=== PATIENT | female | born 1940 | race Caucasian/White ===

== ENCOUNTER 2023-12-01 12:30 | Outpatient (CLI) | payer MEDICARE, MEDICAID, SELFPAY ==
--- NOTE | 2023-12-01 14:15 | NEURO_ITS ---
Impression: # Complains of numbness of hands. Non-Rheumatoid arthritic hands. # Bilateral Carpal Tunnel Syndrome. # No ulnar neuropathy. # Needle/EMG exam not requested. Nerve Conduction Studies Anti Sensory Summary Table Stim Site NR Peak (ms) P-T Amp (?V) Site1 Site2 Delta-P (ms) Dist (cm) Law (m/s) Left Median Anti Sensory (2-3nd Digit) Wrist 3.8 45.7 Wrist 2-3nd Digit 3.8 14.0 37 Wrist 4.0 46.0 Wrist 2-3nd Digit 3.8 14.0 37 Right Median Anti Sensory (2-3nd Digit) POOR RESPONSE Wrist NR Wrist 2-3nd Digit 14.0 Wrist NR Wrist 2-3nd Digit 14.0 Left Radial Anti Sensory (Base 1st Digit) Wrist 1.8 26.8 Wrist Base 1st Digit 1.8 0.0 Right Radial Anti Sensory (Base 1st Digit) Wrist 2.4 18.1 Wrist Base 1st Digit 2.4 0.0 Left Ulnar Anti Sensory (5th Digit) Wrist 2.9 51.5 Wrist 5th Digit 2.9 14.0 48 Right Ulnar Anti Sensory (5th Digit) Wrist 2.6 53.5 Wrist 5th Digit 2.6 14.0 54 Motor Summary Table Stim Site NR Onset (ms) O-P Amp (mV) Site1 Site2 Delta-0 (ms) Dist (cm) Law (m/s) Left Median Motor (Abd Poll Brev) Wrist 4.0 3.5 Elbow Wrist 4.4 27.0 61 Elbow 8.4 2.8 Right Median Motor (Abd Poll Brev) Wrist 4.3 1.5 Elbow Wrist 4.1 25.0 61 Elbow 8.4 0.9 Left Ulnar Motor (Abd Dig Minimi) Wrist 2.8 3.9 A Elbow Wrist 4.5 26.0 58 A Elbow 7.3 3.5 Right Ulnar Motor (Abd Dig Minimi) Wrist 2.7 4.6 A Elbow Wrist 4.5 26.0 58 A Elbow 7.2 4.1 F Wave Studies NR F-Lat (ms) L-R F-Lat (ms) Left Median (Mrkrs) (Abd Poll Brev) 28.09 0.78 Right Median (Mrkrs) (Abd Poll Brev) 28.87 0.78 Left Ulnar (Mrkrs) (Abd Dig Min) 27.01 0.30 Right Ulnar (Mrkrs) (Abd Dig Min) 27.31 0.30 MTDD
== END 2023-12-01 12:31 | disposition home or self-care (01) ==
PROVIDERS: PCP Internal Medicine; Visit Provider Internal Medicine
DX: G56.03 Carpal tunnel syndrome, bilateral upper limbs (principal)
CPT/HCPCS: 95911

== ENCOUNTER 2024-01-30 14:33 | Inpatient (IN) | payer MEDICARE, MEDICAID, SELFPAY ==
[2024-01-30] VITALS (7 sets, daily range): BP systolic 112–135; BP diastolic 48–94; PULSE 62–81; RESP 16–25; TEMP 36.2–36.8; O2SAT 97–100
--- NOTE | ~2024-01-30 | CT_ITS ---
EXAMINATION: CT abdomen pelvis w con DATE: 01/30/2024 20:15 INDICATION: abd pain, diarrhea TECHNIQUE: Computed tomography (CT) of the abdomen and pelvis was performed with 100 mL Omnipaque-350 intravenous contrast. Automated exposure control and iterative reconstruction technique were employe d. The dose-length product was 553.45 mGy-cm. COMPARISON: None. FINDINGS: Lower thorax: Coronary artery and mitral calcification. Mild bibasilar scar/atelectasis. Liver: Normal. Biliary/Gallbladder: Gallbladder is absent. Mild intrahepatic and extra hepatic bile duct dilation. Pancreas: Atrophy Spleen: Granulomatous calcifications. Adrenals:No mass. Kidneys: No hydronephrosis or obstructing calcification. Irregular, indeterminate density 1.2 cm left midpole lesion, possibly with nodular enhancement. GI tract: Moderate distal esophageal and gastric wall edema. no small bowel dilation. Diffuse colonic wall edema and mucosal hyperemia, likely representing colitis on a infectious, inflammatory, or isch emic basis. Colonic fluid content as can be seen with diarrheal illness. Absent appendix. Mesentery/Peritoneum: No ascites, mass, or free air. Retroperitoneum: No mass. Pelvis: Normal urinary bladder. Absent uterus. Bilateral ovaries not confidently identified. Soft Tissues: Small fat-containing uncomplicated umbilical hernia. Mild lower anterior abdominal wall diastases. Bones: No acute osseous finding. Lumbar scoliosis and severe multilevel degenerative disc disease, w ith severe central canal narrowing at L3-4 secondary to degenerative changes. IMPRESSION: Moderate esophagitis/gastritis. Intra and extrahepatic bile duct dilation without obstructing stone or mass, possibly secondary to ch olecystectomy. Correlate with biliary labs. 1.2 cm indeterminate left midpole adrenal lesion with possible nodular enhancement, recommend nonemer gent but timely CT or MRI without and with contrast for further evaluation. Diffuse colitis. Reviewed, dictated and finalized at location K. IMPRESSION: Moderate esophagitis/gastritis. Intra and extrahepatic bile duct dilation without obstructing stone or mass, po ssibly secondary to cholecystectomy. Correlate with biliary labs. 1.2 cm indeterminate left midpole adrenal lesion with possible nodular enhancem ent, recommend nonemergent but timely CT or MRI without and with contrast for f urther evaluation. Diffuse colitis.
[2024-01-30 17:51] LABS: Basophils Percent Auto 0.2 % (0.2-1.2); Eosinophils Percent Auto 0.2 % (0-4.4); Hematocrit 38.7 % (37.0-47.0); Hemoglobin 12.5 g/dL (12.0-15.0); Immature Granulocyte Absolute 0.04 K/mm3 (0.00-0.031); Immature Granulocyte Percent A 0.3 % (0-0.5); Lymphocytes Absolute Auto 0.52 K/mm3 (0.9-3.2); Lymphocytes Percent Auto 4.5 % (18.3-44.2); Mean Corpuscular HGB Conc 32.3 g/dl (32-36); Mean Corpuscular Volume 92.8 fl (80-100); Mean Platelet Volume 10.3 fl (7.4-10.4); Monocytes Absolute Auto 0.5 K/mm3 (0.1-0.6); Monocytes Percent Auto 4.7 % (2.6-8.5); Neutrophils Absolute Auto 10.4 K/mm3 (1.3-6.7); Neutrophils Percent Auto 90.1 % (45.5-73.1); Platelet Count Result 315 k/mm3 (150-375); Red Blood Count 4.17 M/mm3 (4.2-5.4); Red Cell Distribution Width 12.8 % (11.5-14.5); White Blood Count 11.6 K/mm3 (4.5-10.0)
[2024-01-30 17:59] LABS: Alanine Aminotransferase 10 U/L (6-35); Albumin Level 4.2 g/dL (3.5-5.1); Alkaline Phosphatase 78 U/L (38-126); Anion Gap 8 mmol/L (4-12); Aspartate Amino Transferase 23 U/L (14-36); Bilirubin,Total 0.6 mg/dL (0.2-1.3); Blood Urea Nitrogen 16 mg/dL (7-17); Calcium 9.6 mg/dL (8.4-10.2); Carbon Dioxide 30 mmol/L (22-30); Chloride 99 mmol/L (98-107); Estimated Glomerular Filt Rate > 60; Glucose 119 mg/dL (65-110); Lipase 24 U/L (23-300); Potassium 3.4 mmol/L (3.4-5.0); Sodium 137 mmol/L (137-145)
--- NOTE | 2024-01-30 18:55 | ED.NAVMDI ---
HPI - Nausea/Vomiting/Diarrhea General Chief complaint: Nausea/Vomiting/Diarrhea <Fior Suarez PA-C - Last Filed: 01/30/24 22:28> Stated complaint: diarrhea <RON Mayorga Last Filed: 01/30/24 22:28> Time Seen by Provider: 01/30/24 17:17 <RON Mayorga Last Filed: 01/30/24 22:28> Source: patient <RON Mayorga Last Filed: 01/30/24 22:28> Mode of arrival: ambulatory <RON Mayorga Last Filed: 01/30/24 22:28> Limitations: no limitations <RON Mayorga Last Filed: 01/30/24 22:28> History of Present Illness HPI Narrative: Patient is an 84-year-old female who presents the ED with report of diarrhea. Patient reports she had a few episodes of diarrhea 3 days ago. She took a dose of Imodium and states the symptoms improved. She then woke up this morning with worsening diarrhea. Reports having multiple episodes of diarrhea today. States she feels weak, fatigued, has intermittent nausea. She did have an episode of vomiting at home prior to arrival. Reports abdominal pain/cramping associated right before she has a bowel movement. Denies fevers, dysuria, hematuria, rectal bleeding, melena. <RON Mayorga Last Filed: 01/30/24 22:28> Related Data Home medications: Home Medications Medication Instructions Recorded Confirmed Saccharomyces boulardii 250 mg 250 mg PO BID 02/25/23 01/31/24 capsule (Daily Probiotic (S. boulardii)) fexofenadine 180 mg tablet 180 mg PO DAILY 02/25/23 01/31/24 (Cyn Allergy) montelukast 10 mg tablet 10 mg PO HS 02/25/23 01/31/24 rosuvastatin 10 mg tablet 10 mg PO DAILY 02/25/23 01/31/24 acetaminophen 325 mg capsule 650 mg PO PRN PRN Pain 01/31/24 01/31/24 (Tylenol) calcium 600 mg (as carbonate)-vit 1 tablet PO DAILY 01/31/24 01/31/24 D3 20 mcg (800 unit) chewable tablet (Caltrate plus D) furosemide 20 mg tablet 20 mg PO DAILY 01/31/24 01/31/24 <Fior Suarez PA-C - Last Filed: 01/30/24 22:28> Allergies/Adverse reactions: Allergies Allergy/AdvReac Type Severity Reaction Status Date / Time mold Allergy Anaphylaxis Verified 01/31/24 00:13 clarithromycin AdvReac Intermediate Hyperactive Verified 11/24/23 09:38 <Fior Suarez PA-C - Last Filed: 01/30/24 22:28> Review of Systems Review of Systems: All systems reviewed & are unremarkable except as noted in HPI. <Fior Suarez PA-C - Last Filed: 01/30/24 22:28> All systems reviewed & are unremarkable except as noted in HPI and below <Fior Suarez PA-C - Last Filed: 01/30/24 22:28> [facility] Past Medical History Medical History: Medical History (Updated 01/31/24 @ 06:54 by Jenelle Moulton DO) Allergic rhinitis Bilateral carpal tunnel syndrome High cholesterol Lymphedema of both lower extremities Osteoarthritis of knees, bilateral <Fior Suarez PA-C - Last Filed: 01/30/24 22:28> Surgical History Surgical History: Surgical History History of cataract extraction History of cholecystectomy History of hysterectomy <Fior Suarez PA-C - Last Filed: 01/30/24 22:28> Family History Family History: Family History Mother Diabetes mellitus Heart disease Daughter No problems noted. Father Diabetes mellitus Heart disease Sibling No problems noted. <Fior Suarez PA-C - Last Filed: 01/30/24 22:28> Social History Social History: Social History (Updated 01/31/24 @ 06:57 by Jenelle Moulton DO) Social History: Code status: Full code (but she states she would not want to live if she did not have quality of life) Surrogate decision maker: Osbaldo (son) Smoking status: Never smoker Second hand tobacco smoke exposure: No Alcohol
[2024-01-30] MEDS: SODIUM CHLORIDE 0.9% IV 1,000 ML 999 ML IV CONT (19:50)
[2024-01-30 19:54] LABS: Lactic Acid Reflex 1.4 mmol/L (0.7-2.0)
[2024-01-30 20:29] LABS: Toxigenic C. Diff NEGATIVE (NEGATIVE)
[2024-01-30 21:31] LABS: Add Urine Microscopic? YES; Appearance Urine Clear (Clear); Bilirubin Urine Negative (Negative); Blood Urine Negative (Negative); Color Urine Dark Yellow (Yellow); Glucose Urine UA Negative (Negative); Ketones Urine Trace mg/dL (Negative); Leukocyte Esterase Ur Negative LEU/UL (Negative); Nitrate Urine Negative (Negative); Protein Urine Negative (Negative); Specific Grav Ur 1.021 (1.001-1.035); pH Urine 5.5 (5.0-9.0)
[2024-01-31] MEDS: ACETAMINOPHEN 325 MG TABLET 650 MG PO ×2 (00:03→09:00)
[2024-01-31] MEDS: SODIUM CHLORIDE 0.9% IV 1,000 ML 150 ML IV CONT (00:07)
--- NOTE | 2024-01-31 00:11 | ADMGEN ---
This patient, Sujatha Glez, was admitted to Medical Room 252-. Patient/family oriented to hospital policies and general routines including ID bracelet, bed and alarms, visiting hours, pain management, procedures, bathroom and other care routines, personal items, smoking policy, room service/diet, and visiting hours. Information on how to activate the Rapid Response Team has been discussed. Patient/Family are encouraged to report perceived risks to care and to ask questions if they do not understand what they are told or what they should do.
[2024-01-31 00:13] VITALS: BMI 30.4
--- NOTE | 2024-01-31 03:40 | PM.IMHP ---
H&P: HPI History of Present Illness Date/Time: 01/31/24 03:40 Chief Complaint: Diarrhea for 3 days Narrative: 84-year-old loquacious female with a past medical history of hyperlipidemia, chronic bilateral lower extremity lymphedema, and allergic rhinitis who presented to the ER via EMS due to severe diarrhea. Patient reports that she had a couple loose stools on the . She took a dose of Imodium and the diarrhea resolved. Then on the she had recurrent diarrhea with another couple of episodes of loose stools again relieved with Imodium. However on Thursday when she woke up she had crampy abdominal pain followed by multiple episodes of diarrhea. She reported at 1 point that she could not get off the bedside commode for over 2 hours due to continuous watery diarrhea. He was having episodes of incontinence of stool due to weakness. When she could not get off of the bedside commode her son called EMS for assistance. She reports that she thought that her symptoms were due to something she ate on Thursday. Her son 8th the same food that she did except for she had some green beans when they went out to dinner. She denies any fevers or chills. She has not had any recent travel or antibiotic exposure. She has been having some intermittent nausea but only had 1 episode of vomiting that occurred in transport to the ER. She generally just feels weak and fatigued. She reports some crampy abdominal pain that is ?not that bad?. The abdominal pain occurs just prior to having a bowel movement. She reports that the pain is in various areas of her abdomen and is transient. She denies any associated shortness of breath, chest pain or palpitations. She does have chronic bilateral lower extremity lymphedema but denies history of heart failure. She reports her leg swelling is chronic and unchanged. She reports [id number] arthritis but denies any increased pain from this in the acute setting. Patient is alert oriented and is extremely detail oriented in providing her medical history. She is the primary source of information for HPI with assistance of some electronic medical records. Review of Systems Review of Systems: 12 systems were reviewed with pertinent positives and negatives per HPI. Except as documented in the HPI, all other systems were reviewed and are negative. [facility] Past Medical History Medical History (Updated 01/31/24 @ 06:54 by Jenelle Moulton DO) Allergic rhinitis Bilateral carpal tunnel syndrome High cholesterol Lymphedema of both lower extremities Osteoarthritis of knees, bilateral Surgical History Surgical History History of cataract extraction History of cholecystectomy History of hysterectomy Family History Family History Mother Diabetes mellitus Heart disease Daughter No problems noted. Father Diabetes mellitus Heart disease Sibling No problems noted. Social History Social History (Updated 01/31/24 @ 06:57 by Jenelle Moulton DO) Social History: Code status: Full code (but she states she would not want to live if she did not have quality of life) Surrogate decision maker: Osbaldo (son) Smoking status: Never smoker Second hand tobacco smoke exposure: No Alcohol intake: never Substance use: never Substance use type: does not use Do You Feel Safe in your Home?: Yes Lack of Transportation: No Lack of Food: Never True Current Housing: I Have Housing Concerned About Future Housing: No Difficulty Paying Gas/Electric Bills: No Difficulty Paying for Meds: No Currently Unemployed: No Education: High School Diploma/GED Difficulty w/ Childcare or Family Care: No Living arrangements: with family Additional living arrangements comments: She lives in apartment with her only son. She has been since approx
[2024-01-31] MEDS: metroNIDAZOLE 500 MG/ISO 100ML 500 MG/100 ML BAG 100 MG IVPB ×3 (04:23→21:24)
[2024-01-31 05:41] VITALS: BP 108/50; PULSE 69; RESP 18; TEMP 36.6; O2SAT 98
[2024-01-31 08:00] LABS: Basophils Percent Auto 0.5 % (0.2-1.2); Eosinophils Absolute Auto 0.3 K/mm3 (0-0.3); Eosinophils Percent Auto 4.4 % (0-4.4); Hematocrit 31.8 % (37.0-47.0); Immature Granulocyte Absolute 0.01 K/mm3 (0.00-0.031); Immature Granulocyte Percent A 0.2 % (0-0.5); Lymphocytes Absolute Auto 0.95 K/mm3 (0.9-3.2); Lymphocytes Percent Auto 14.4 % (18.3-44.2); Mean Corpuscular HGB Conc 31.4 g/dl (32-36); Mean Corpuscular Hemoglobin 30.1 pg (26-34); Mean Corpuscular Volume 95.8 fl (80-100); Mean Platelet Volume 10.2 fl (7.4-10.4); Monocytes Absolute Auto 0.7 K/mm3 (0.1-0.6); Monocytes Percent Auto 9.9 % (2.6-8.5); Neutrophils Absolute Auto 4.7 K/mm3 (1.3-6.7); Neutrophils Percent Auto 70.6 % (45.5-73.1); Platelet Count Result 240 k/mm3 (150-375); Red Blood Count 3.32 M/mm3 (4.2-5.4); Red Cell Distribution Width 13.1 % (11.5-14.5); White Blood Count 6.6 K/mm3 (4.5-10.0)
[2024-01-31 08:27] LABS: Alanine Aminotransferase 6 U/L (6-35); Albumin Level 2.9 g/dL (3.5-5.1); Alkaline Phosphatase 53 U/L (38-126); Anion Gap 8 mmol/L (4-12); Aspartate Amino Transferase 18 U/L (14-36); Bilirubin,Total 0.8 mg/dL (0.2-1.3); Blood Urea Nitrogen 15 mg/dL (7-17); Calcium 8.1 mg/dL (8.4-10.2); Carbon Dioxide 23 mmol/L (22-30); Chloride 105 mmol/L (98-107); Estimated Glomerular Filt Rate > 60; Glucose 90 mg/dL (65-110); Potassium 2.5 mmol/L (3.4-5.0); Sodium 136 mmol/L (137-145)
[2024-01-31] MEDS: LOPERAMIDE HCL 2 MG CAPSULE 4 MG PO (08:58)
[2024-01-31] MEDS: POTASSIUM CHLORIDE 20 MEQ ER TABLET 40 MEQ PO ×2 (08:59→17:14)
[2024-01-31] MEDS: POTASSIUM CHLORIDE INJ 40 MEQ in SODIUM CHLORIDE 0.9% IV 500 ML 130 MEQ IVPB (08:59)
[2024-01-31] MEDS: SACCHAROMYCES BOULARDII 250 MG CAPSULE PO ×2 (09:00→17:15)
[2024-01-31] MEDS: ENOXAPARIN 40 MG/0.4 ML SYRINGE SUB-Q (09:00)
[2024-01-31] MEDS: CALCIUM/VITAMIN D 500 MG/5 MCG (200 I.U.) TABLET PO (09:00)
[2024-01-31] MEDS: LORATADINE 10 MG TABLET PO (09:00)
--- NOTE | 2024-01-31 10:00 | PM.IMPN ---
Progress Note: A&P Assessment and Plan (1) Colitis: Code(s): K52.9 - Noninfective gastroenteritis and colitis, unspecified Status: Acute Assessment and Plan: Presumed infectious colitis with diffuse colitis noted on CT scan. c. diff negative. stool cultures negative Receiving Rocephin and Flagyl IV. NS @ 75 ml/hr. (2) Dehydration: Code(s): E86.0 - Dehydration Status: Acute Assessment and Plan: Patient received 2 L fluid bolus in the ER. NS @ 75 ml/hr Full liquid diet. PT/OT (3) Hypokalemia: Code(s): E87.6 - Hypokalemia Status: Acute Assessment and Plan: Potassium 2.5. Patient given Potassium Chloride 40 meq IVPB x1 and Potassium Chloride 40 meq PO x1. Recheck potassium was 3.3. Give an additional Potassium Chloride 40 meq PO x1. Monitor labs. (4) Back pain: Code(s): M54.9 - Dorsalgia, unspecified Status: Acute Assessment and Plan: Acetaminophen 650 mg PO q 4 PRN. Plan Patient has been admitted as observation status. Subjective Date/time seen: 01/31/24 10:00 Interval history: Patient denies chest pain, palpitations, abdominal pain, nausea, or vomiting. Patient reports back pain that is a 6 , pain is constant, and aching. Review of Systems Review of Systems: All systems reviewed & are unremarkable except as noted in HPI and below Exam Const: General: no acute distress and uncomfortable Eyes: Sclera: sclerae normal Resp: Effort & Inspection: normal respiratory effort Auscultation: clear to auscultation bilaterally Cardio: Rate: regular rate Rhythm: regular rhythm GI: GI Palp: Yes Soft to palpation Auscultation: normal bowel sounds Other: Last BM today. Skin: General skin exam: no rashes or lesions noted Extrem: General: normal to inspection Psych: Affect: normal affect Objective Data Vital Signs Vital Signs: Vital Signs - 24 hr 01/30/24 14:41 01/30/24 17:30 01/30/24 21:15 Temperature 97.4 F L 98.2 F 97.9 F Pulse Rate 81 78 74 Respiratory Rate 20 16 23 H Blood Pressure 129/51 L 112/57 L 116/81 Pulse Oximetry 100 100 100 Oxygen Delivery Room Air 01/30/24 18:00 01/30/24 20:00 01/30/24 22:57 Temperature Pulse Rate 76 73 76 Respiratory Rate 18 20 25 H Blood Pressure 119/94 H 120/56 L 125/60 Pulse Oximetry 100 97 100 Oxygen Delivery 01/30/24 23:27 01/30/24 23:27 01/31/24 05:41 Temperature 97.1 F L 97.8 F Pulse Rate 62 69 Respiratory Rate 20 18 Blood Pressure 135/48 L 108/50 L Pulse Oximetry 100 98 Oxygen Delivery Room Air Intake/Output Intake/Output: Intake & Output 01/28/24 01/29/24 01/30/24 01/31/24 23:59 23:59 23:59 23:59 Intake Total 1000 300 Balance 1000 300 Meds/Results Medications: Active Medications Generic Name Dose Route Start Last Admin Trade Name Freq PRN Reason Stop Dose Admin Acetaminophen 650 mg 01/30/24 22:21 01/31/24 09:00 Acetaminophen 325 Mg Tablet PO 650 mg Q4H PRN Administration Mild Pain (1-3) or Fever Acetaminophen 650 mg 01/31/24 06:55 Acetaminophen 325 Mg Tablet PO Q4H PRN Pain 1-3 or fever Al Hydrox/Mg Hydrox/Simethicone 30 ml 01/31/24 07:03 Mag Hydrox/Al Hydrox/Simeth 30 Ml Udc PO Q6H PRN Indigestion Calcium Carbonate 500 mg 01/31/24 09:00 01/31/24 09:00 Calcium/Vitamin D 500 Mg/5 Mcg (200 I.U.) Tablet PO 03/01/24 08:59 500 mg DAILY KT Administration Enoxaparin Sodium 40 mg 01/31/24 09:00 01/31/24 09:00 Enoxaparin 40 Mg/0.4 Ml Syringe SUB-Q 40 mg DAILY KT Administration Ceftriaxone Sodium 1 gm in 50 mls @ 100 mls/hr 02/01/24 04:00 Rocephin 1 Gm/Ns 50 Ml IVPB Q24H KT Metronidazole 500 mg in 100 mls @ 100 mls/hr 01/31/24 14:00 Flagyl 500 Mg/Iso Soln 100 Ml IVPB Q8HR KT Sodium Chloride 1,000 mls @ 75 mls/hr 01/30/24 22:25 01/31/24 00:07 Normal Saline Iv IV CONT 150 mls/hr .[id number] KT
[2024-01-31 13:57] VITALS: BP 103/44; PULSE 67; RESP 16; TEMP 36.3; O2SAT 99
[2024-01-31] MEDS: SODIUM CHLORIDE 0.9% IV 1,000 ML 75 ML IV CONT (14:33)
[2024-01-31 16:00] LABS: Anion Gap 8 mmol/L (4-12); Blood Urea Nitrogen 14 mg/dL (7-17); Calcium 8.3 mg/dL (8.4-10.2); Carbon Dioxide 22 mmol/L (22-30); Chloride 107 mmol/L (98-107); Estimated Glomerular Filt Rate > 60; Glucose 79 mg/dL (65-110); Potassium 3.3 mmol/L (3.4-5.0); Sodium 137 mmol/L (137-145)
[2024-01-31 20:53] VITALS: BP 107/53; PULSE 74; RESP 16; TEMP 36.7; O2SAT 100
[2024-01-31] MEDS: MONTELUKAST SODIUM 10 MG TABLET PO (21:24)
[2024-02-01] MEDS: ACETAMINOPHEN 325 MG TABLET 650 MG PO ×3 (00:10→22:09)
[2024-02-01 05:13] VITALS: BP 111/50; PULSE 66; RESP 16; TEMP 36.7; O2SAT 96
[2024-02-01] MEDS: SODIUM CHLORIDE 0.9% IV 1,000 ML 75 ML IV CONT (05:31)
[2024-02-01] MEDS: metroNIDAZOLE 500 MG/ISO 100ML 500 MG/100 ML BAG 100 MG IVPB ×3 (05:36→21:34)
[2024-02-01 06:05] LABS: Basophils Percent Auto 0.5 % (0.2-1.2); Eosinophils Absolute Auto 0.6 K/mm3 (0-0.3); Eosinophils Percent Auto 9.8 % (0-4.4); Hematocrit 31.1 % (37.0-47.0); Hemoglobin 9.8 g/dL (12.0-15.0); Immature Granulocyte Absolute 0.02 K/mm3 (0.00-0.031); Immature Granulocyte Percent A 0.3 % (0-0.5); Lymphocytes Absolute Auto 1.17 K/mm3 (0.9-3.2); Lymphocytes Percent Auto 18.5 % (18.3-44.2); Mean Corpuscular HGB Conc 31.5 g/dl (32-36); Mean Corpuscular Hemoglobin 29.7 pg (26-34); Mean Corpuscular Volume 94.2 fl (80-100); Mean Platelet Volume 9.6 fl (7.4-10.4); Monocytes Absolute Auto 0.5 K/mm3 (0.1-0.6); Monocytes Percent Auto 7.4 % (2.6-8.5); Neutrophils Percent Auto 63.5 % (45.5-73.1); Platelet Count Result 223 k/mm3 (150-375); Red Cell Distribution Width 13.2 % (11.5-14.5); White Blood Count 6.3 K/mm3 (4.5-10.0)
[2024-02-01 06:17] LABS: Alanine Aminotransferase 7 U/L (6-35); Albumin Level 2.7 g/dL (3.5-5.1); Alkaline Phosphatase 54 U/L (38-126); Anion Gap 4 mmol/L (4-12); Aspartate Amino Transferase 19 U/L (14-36); Bilirubin,Total 0.3 mg/dL (0.2-1.3); Blood Urea Nitrogen 8 mg/dL (7-17); Calcium 7.9 mg/dL (8.4-10.2); Carbon Dioxide 23 mmol/L (22-30); Chloride 109 mmol/L (98-107); Estimated Glomerular Filt Rate > 60; Glucose 88 mg/dL (65-110); Potassium 3.5 mmol/L (3.4-5.0); Sodium 136 mmol/L (137-145)
[2024-02-01] MEDS: SACCHAROMYCES BOULARDII 250 MG CAPSULE PO ×2 (08:33→16:32)
[2024-02-01] MEDS: CALCIUM/VITAMIN D 500 MG/5 MCG (200 I.U.) TABLET PO (08:34)
[2024-02-01] MEDS: LORATADINE 10 MG TABLET PO (08:34)
[2024-02-01] MEDS: ENOXAPARIN 40 MG/0.4 ML SYRINGE SUB-Q (08:34)
--- NOTE | 2024-02-01 09:22 | PM.IMPN ---
Progress Note: A&P Assessment and Plan (1) Colitis: Code(s): K52.9 - Noninfective gastroenteritis and colitis, unspecified Status: Acute Assessment and Plan: Presumed infectious colitis with diffuse colitis noted on CT scan. c. diff negative. stool cultures negative. Receiving Rocephin and Flagyl IV. Stop IV fluids. Encourage water intake. (2) Dehydration: Code(s): E86.0 - Dehydration Status: Acute Assessment and Plan: Patient received 2 L fluid bolus in the ER. Improved. Stop IV fluids. Encourage PO intake. Regular diet. PT/OT (3) Hypokalemia: Code(s): E87.6 - Hypokalemia Status: Acute Assessment and Plan: Improving. Potassium this morning 3.5. Give an additional Potassium Chloride 20 meq PO x1. Monitor labs. (4) Back pain: Code(s): M54.9 - Dorsalgia, unspecified Status: Acute Assessment and Plan: Acetaminophen 650 mg PO q 4 PRN. (5) Neck pain: Code(s): M54.2 - Cervicalgia Status: Acute Assessment and Plan: Acetaminophen 650 mg PO q 4 PRN. Plan Patient has been admitted as observation status. Subjective Date/time seen: 02/01/24 09:22 Interval history: Patient denies chest pain, palpitations, abdominal pain, nausea, or vomiting. Patient reports back pain that is a 7 and neck pain is a 5 , pain is constant, and aching. Patient reports carpal tunnel in bilateral hands with numbness in right greater than left. Review of Systems Review of Systems: All systems reviewed & are unremarkable except as noted in HPI and below Exam Const: General: no acute distress and uncomfortable Eyes: Sclera: sclerae normal Resp: Effort & Inspection: normal respiratory effort Auscultation: clear to auscultation bilaterally Cardio: Rate: regular rate Rhythm: regular rhythm GI: GI Palp: Yes Soft to palpation Auscultation: normal bowel sounds Other: Last BM 01/31/24 Neuro: Speech: normal speech Extrem: General: normal to inspection Psych: Affect: normal affect Objective Data Vital Signs Vital Signs: Vital Signs - 24 hr 01/31/24 13:57 01/31/24 20:53 01/31/24 21:24 Temperature 97.3 F L 98.0 F Pulse Rate 67 74 Respiratory Rate 16 16 Blood Pressure 103/44 L 107/53 L Pulse Oximetry 99 100 Oxygen Delivery Room Air 02/01/24 05:13 02/01/24 08:34 Temperature 98.1 F Pulse Rate 66 Respiratory Rate 16 Blood Pressure 111/50 L Pulse Oximetry 96 Oxygen Delivery Room Air Intake/Output Intake/Output: Intake & Output 01/29/24 01/30/24 01/31/24 02/01/24 23:59 23:59 23:59 23:59 Intake Total 1000 3320 1550 Balance 1000 3320 1550 Meds/Results Medications: Active Medications Generic Name Dose Route Start Last Admin Trade Name Freq PRN Reason Stop Dose Admin Acetaminophen 650 mg 01/30/24 22:21 02/01/24 06:43 Acetaminophen 325 Mg Tablet PO 650 mg Q4H PRN Administration Mild Pain (1-3) or Fever Acetaminophen 650 mg 01/31/24 06:55 Acetaminophen 325 Mg Tablet PO Q4H PRN Pain 1-3 or fever Al Hydrox/Mg Hydrox/Simethicone 30 ml 01/31/24 07:03 Mag Hydrox/Al Hydrox/Simeth 30 Ml Udc PO Q6H PRN Indigestion Calcium Carbonate 500 mg 01/31/24 09:00 02/01/24 08:34 Calcium/Vitamin D 500 Mg/5 Mcg (200 I.U.) Tablet PO 03/01/24 08:59 500 mg DAILY KT Administration Enoxaparin Sodium 40 mg 01/31/24 09:00 02/01/24 08:34 Enoxaparin 40 Mg/0.4 Ml Syringe SUB-Q 40 mg DAILY KT Administration Ceftriaxone Sodium 1 gm in 50 mls @ 100 mls/hr 02/01/24 04:00 02/01/24 03:36 Rocephin 1 Gm/Ns 50 Ml IVPB Infused Q24H KT Infusion Metronidazole 500 mg in 100 mls @ 100 mls/hr 01/31/24 14:00 02/01/24 06:36 Flagyl 500 Mg/Iso Soln 100 Ml IVPB Infused Q8HR KT Infusion Sodium Chloride 1,000 mls @ 75 mls/hr 01/30/24 22:25 02/01/24 05:31 Normal Saline Iv IV CONT 75 mls/hr .[id number] KT
[2024-02-01] MEDS: POTASSIUM CHLORIDE 20 MEQ ER TABLET PO (09:30)
[2024-02-01 14:00] VITALS: BP 120/49; PULSE 72; RESP 16; TEMP 36.4; O2SAT 100
[2024-02-01] MEDS: MAG HYDROX/AL HYDROX/SIMETH 30 ML UDC PO (16:32)
[2024-02-01 20:30] VITALS: BP 126/62; PULSE 79; RESP 16; TEMP 36.7; O2SAT 100
[2024-02-01] MEDS: MONTELUKAST SODIUM 10 MG TABLET PO (21:33)
[2024-02-02] MEDS: metroNIDAZOLE 500 MG/ISO 100ML 500 MG/100 ML BAG 100 MG IVPB (05:13)
[2024-02-02 05:58] LABS: Basophils Percent Auto 0.4 % (0.2-1.2); Eosinophils Absolute Auto 0.6 K/mm3 (0-0.3); Hematocrit 31.4 % (37.0-47.0); Hemoglobin 10.1 g/dL (12.0-15.0); Immature Granulocyte Absolute 0.03 K/mm3 (0.00-0.031); Immature Granulocyte Percent A 0.5 % (0-0.5); Lymphocytes Percent Auto 17.6 % (18.3-44.2); Mean Corpuscular HGB Conc 32.2 g/dl (32-36); Mean Corpuscular Hemoglobin 30.1 pg (26-34); Mean Corpuscular Volume 93.7 fl (80-100); Monocytes Absolute Auto 0.5 K/mm3 (0.1-0.6); Monocytes Percent Auto 8.1 % (2.6-8.5); Neutrophils Absolute Auto 3.6 K/mm3 (1.3-6.7); Neutrophils Percent Auto 63.4 % (45.5-73.1); Platelet Count Result 247 k/mm3 (150-375); Red Blood Count 3.35 M/mm3 (4.2-5.4); White Blood Count 5.7 K/mm3 (4.5-10.0)
[2024-02-02 06:00] VITALS: BP 131/60; PULSE 70; RESP 16; TEMP 36.8; O2SAT 94
[2024-02-02 06:08] LABS: Alanine Aminotransferase 8 U/L (6-35); Albumin Level 2.6 g/dL (3.5-5.1); Alkaline Phosphatase 57 U/L (38-126); Anion Gap 5 mmol/L (4-12); Aspartate Amino Transferase 22 U/L (14-36); Bilirubin,Total 0.4 mg/dL (0.2-1.3); Blood Urea Nitrogen 5 mg/dL (7-17); Carbon Dioxide 23 mmol/L (22-30); Chloride 107 mmol/L (98-107); Estimated Glomerular Filt Rate > 60; Glucose 90 mg/dL (65-110); Potassium 3.5 mmol/L (3.4-5.0); Sodium 135 mmol/L (137-145)
[2024-02-02] MEDS: SACCHAROMYCES BOULARDII 250 MG CAPSULE PO ×2 (07:51→17:10)
[2024-02-02] MEDS: LORATADINE 10 MG TABLET PO (07:51)
[2024-02-02] MEDS: CALCIUM/VITAMIN D 500 MG/5 MCG (200 I.U.) TABLET PO (07:51)
[2024-02-02] MEDS: ENOXAPARIN 40 MG/0.4 ML SYRINGE SUB-Q (07:51)
[2024-02-02] MEDS: ACETAMINOPHEN 325 MG TABLET 650 MG PO (10:12)
--- NOTE | 2024-02-02 11:15 | PM.IMPN ---
Progress Note: A&P Assessment and Plan (1) Colitis: Code(s): K52.9 - Noninfective gastroenteritis and colitis, unspecified Status: Acute Assessment and Plan: Presumed infectious colitis with diffuse colitis noted on CT scan. c. diff negative. stool culture for Shiga Toxins and Campylobacter are negative. Stool for Salmonella is pending. Receiving Cefdinir 300 mg PO q12 and Metronidazole 500 mg PO q 8. Blood cultures no growth to date. Encourage water intake. (2) Dehydration: Code(s): E86.0 - Dehydration Status: Acute Assessment and Plan: Patient received 2 L fluid bolus in the ER. Improved. Stop IV fluids yesterday. Encourage PO intake. Regular diet. PT/OT (3) Hypokalemia: Code(s): E87.6 - Hypokalemia Status: Acute Assessment and Plan: Improving. Potassium this morning 3.5. Monitor labs. (4) Back pain: Code(s): M54.9 - Dorsalgia, unspecified Status: Acute Assessment and Plan: Acetaminophen 650 mg PO q 4 PRN. (5) Neck pain: Code(s): M54.2 - Cervicalgia Status: Acute Assessment and Plan: Acetaminophen 650 mg PO q 4 PRN. Plan Patient has been admitted as observation status. Subjective Date/time seen: 02/02/24 11:15 Interval history: Patient reports having an episode this morning of a large diarrhea and does not feel that she is able to go home today. Patient denies chest pain, palpitations, headache, dizziness, nausea, or vomiting. Patient sitting up in a chair. Patient reports back and neck pain is a 6 , frequent, and aching. Review of Systems Review of Systems: All systems reviewed & are unremarkable except as noted in HPI and below Exam Const: General: no acute distress Resp: Effort & Inspection: normal respiratory effort Auscultation: clear to auscultation bilaterally Cardio: Rate: regular rate Rhythm: regular rhythm GI: GI Palp: Yes Soft to palpation Auscultation: normal bowel sounds Other: Last BM today. Neuro: Speech: normal speech Extrem: General: normal to inspection Psych: Affect: normal affect Objective Data Vital Signs Vital Signs: Vital Signs - 24 hr 02/01/24 11:30 02/01/24 14:00 02/01/24 21:35 Temperature 97.5 F L Pulse Rate 72 Respiratory Rate 16 Blood Pressure 120/49 L Pulse Oximetry 100 Oxygen Delivery Room Air Room Air 02/01/24 20:30 02/02/24 06:00 02/02/24 09:58 Temperature 98.1 F 98.2 F Pulse Rate 79 70 Respiratory Rate 16 16 Blood Pressure 126/62 131/60 Pulse Oximetry 100 94 Oxygen Delivery Room Air Intake/Output Intake/Output: Intake & Output 01/30/24 01/31/24 02/01/24 02/02/24 23:59 23:59 23:59 23:59 Intake Total 1000 3320 2740 390 Balance 1000 3320 2740 390 Meds/Results Medications: Active Medications Generic Name Dose Route Start Last Admin Trade Name Freq PRN Reason Stop Dose Admin Acetaminophen 650 mg 01/30/24 22:21 02/02/24 10:12 Acetaminophen 325 Mg Tablet PO 650 mg Q4H PRN Administration Mild Pain (1-3) or Fever Acetaminophen 650 mg 01/31/24 06:55 Acetaminophen 325 Mg Tablet PO Q4H PRN Pain 1-3 or fever Al Hydrox/Mg Hydrox/Simethicone 30 ml 01/31/24 07:03 02/01/24 16:32 Mag Hydrox/Al Hydrox/Simeth 30 Ml Udc PO 30 ml Q6H PRN Administration Indigestion Calcium Carbonate 500 mg 01/31/24 09:00 02/02/24 07:51 Calcium/Vitamin D 500 Mg/5 Mcg (200 I.U.) Tablet PO 03/01/24 08:59 500 mg DAILY KT Administration Cefdinir 300 mg 02/02/24 21:00 Cefdinir 300 Mg Capsule PO 02/06/24 09:01 Q12HR KT Enoxaparin Sodium 40 mg 01/31/24 09:00 02/02/24 07:51 Enoxaparin 40 Mg/0.4 Ml Syringe SUB-Q 40 mg DAILY KT Administration Loperamide HCl 2 mg 01/31/24 06:54 Loperamide Hcl 2 Mg Capsule PO PRN PRN Diarrhea Loratadine 10 mg 01/31/24 09:00 02/02/24 07:51 Loratadine 10 Mg Tablet PO 02/18
[2024-02-02] MEDS: metroNIDAZOLE 500 MG TABLET PO ×2 (13:03→20:10)
[2024-02-02 14:00] VITALS: BP 122/55; PULSE 76; RESP 18; TEMP 36.4; O2SAT 97
[2024-02-02 19:40] VITALS: PULSE 76; RESP 18; O2SAT 97
[2024-02-02] MEDS: CEFDINIR 300 MG CAPSULE PO (20:09)
[2024-02-02] MEDS: MONTELUKAST SODIUM 10 MG TABLET PO (20:09)
[2024-02-02 20:20] VITALS: BP 145/52; PULSE 73; RESP 20; TEMP 36.7; O2SAT 100
[2024-02-03 04:07] VITALS: BP 128/60; PULSE 78; RESP 18; TEMP 36.9; O2SAT 97
[2024-02-03 05:14] LABS: Basophils Percent Auto 0.5 % (0.2-1.2); Eosinophils Absolute Auto 0.5 K/mm3 (0-0.3); Eosinophils Percent Auto 9.1 % (0-4.4); Hematocrit 31.5 % (37.0-47.0); Hemoglobin 9.8 g/dL (12.0-15.0); Immature Granulocyte Absolute 0.03 K/mm3 (0.00-0.031); Immature Granulocyte Percent A 0.5 % (0-0.5); Lymphocytes Absolute Auto 1.17 K/mm3 (0.9-3.2); Mean Corpuscular HGB Conc 31.1 g/dl (32-36); Mean Corpuscular Hemoglobin 29.3 pg (26-34); Mean Corpuscular Volume 94.3 fl (80-100); Mean Platelet Volume 10.1 fl (7.4-10.4); Monocytes Absolute Auto 0.5 K/mm3 (0.1-0.6); Monocytes Percent Auto 9.1 % (2.6-8.5); Neutrophils Absolute Auto 3.3 K/mm3 (1.3-6.7); Neutrophils Percent Auto 59.8 % (45.5-73.1); Platelet Count Result 271 k/mm3 (150-375); Red Blood Count 3.34 M/mm3 (4.2-5.4); Red Cell Distribution Width 13.2 % (11.5-14.5); White Blood Count 5.6 K/mm3 (4.5-10.0)
[2024-02-03 05:29] LABS: Alanine Aminotransferase 8 U/L (6-35); Albumin Level 2.5 g/dL (3.5-5.1); Alkaline Phosphatase 52 U/L (38-126); Anion Gap 4 mmol/L (4-12); Aspartate Amino Transferase 19 U/L (14-36); Bilirubin,Total 0.4 mg/dL (0.2-1.3); Blood Urea Nitrogen 4 mg/dL (7-17); Calcium 8.4 mg/dL (8.4-10.2); Carbon Dioxide 26 mmol/L (22-30); Chloride 105 mmol/L (98-107); Estimated Glomerular Filt Rate > 60; Glucose 89 mg/dL (65-110); Potassium 3.5 mmol/L (3.4-5.0); Sodium 135 mmol/L (137-145)
[2024-02-03] MEDS: metroNIDAZOLE 500 MG TABLET PO ×2 (05:48→13:18)
[2024-02-03] MEDS: SACCHAROMYCES BOULARDII 250 MG CAPSULE PO (08:16)
[2024-02-03] MEDS: CALCIUM/VITAMIN D 500 MG/5 MCG (200 I.U.) TABLET PO (08:16)
[2024-02-03] MEDS: LORATADINE 10 MG TABLET PO (08:16)
[2024-02-03] MEDS: ENOXAPARIN 40 MG/0.4 ML SYRINGE SUB-Q (08:16)
[2024-02-03] MEDS: CEFDINIR 300 MG CAPSULE PO (08:16)
--- NOTE | 2024-02-03 09:04 | PCPTNOTE ---
Attempted to see patient for PT, however patient was eating breakfast.
[2024-02-03 14:00] VITALS: BP 136/63; PULSE 82; RESP 14; TEMP 36.1; O2SAT 99
--- NOTE | 2024-02-03 14:48 | PM.DS ---
DS: Admitting Diagnosis Discharge Date 02/03/2024 Admitting Diagnosis colitis dehydration hypokalemia back pain neck pain DS: Discharge Diagnosis Discharge Diagnosis (1) Colitis: Code(s): K52.9 - Noninfective gastroenteritis and colitis, unspecified Status: Acute (2) Dehydration: Code(s): E86.0 - Dehydration Status: Acute (3) Hypokalemia: Code(s): E87.6 - Hypokalemia Status: Acute (4) Back pain: Code(s): M54.9 - Dorsalgia, unspecified Status: Acute (5) Neck pain: Code(s): M54.2 - Cervicalgia Status: Acute DS: Summary Hospital Course Reason for hospitalization: colitis dehydration hypokalemia back pain neck pain Hospital Course: 84-year-old loquacious female with a past medical history of hyperlipidemia, chronic bilateral lower extremity lymphedema, and allergic rhinitis who presented to the ER via EMS due to severe diarrhea. She was not meetings SIRs criteria on admission. She was dehydrated and received IV fluids in the ED. She was also noted to be hypokalemic likely secondary to diarrhea. This resolved during admission. An abdomen/pelvis CT was obtained and showed diffuse colitis. Patient was started on antibiotics at that time for concern of infectious colitis. C dif and stool culture was negative. Blood cultures NGTD. During admission patients diarrhea resolved with her most recent bowel movement being small pebbled stool. She denies abdominal pain, nausea and vomiting. 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 Patient is to follow up with this in the outpatient setting. Prior to discharge patient denied chest pain, shortness of breath, nausea/vomiting and abdominal pain. Patient discharged home in stable condition. PT/OT recommending home health however patient is uninterested at this time. Discussed with patient that home health would be of great benefit to her to improve her balance and strength. She states understanding and does not wish to move forward with home health services at this time. Patient is to follow up with her PCP in 1 week and take her medications as prescribed. Status at Discharge Functional status at discharge: uses cane/walker Time Spent with Patient Time attestation: Total time spent providing and/or coordinating discharge services: Time spent: Greater than 30 minutes Exam Narrative: AF HR 82 RR 14 SpO2 99 BP 136/63 General: female in no acute respiratory distress who is nontoxic appearing, lying semi recumbent in bed. HEENT: Normocephalic. Atraumatic. Extraocular movement intact. Sclera clear and anicteric. No facial asymmetry. Chest: Lungs are clear to auscultation bilaterally. No wheezes or crackles. CV: Heart was regular rate and rhythm. S1-S2. No murmurs, gallops, or rubs. Abd: Abdomen was soft. Nontender. Nondistended. Positive bowel sounds. No organomegaly or masses. Ext: No clubbing, cyanosis, or edema. 2+ DP pulses bilaterally. Neuro: Patient is alert and oriented x4. Cranial nerves 2-12 are intact. Speech is clear. DS: Data Data Completed and Pending Completed studies during hospitalization: Abdomen/pelvis CT Labs on day of discharge: Labs from last 24 hours 02/03/24 04:52 WBC 5.6 RBC 3.34 L Hgb 9.8 L Hct 31.5 L MCV 94.3 MCH 29.3 MCHC 31.1 L RDW 13.2 Plt Count 271 MPV 10.1 Immature Gran % (Auto) 0.5 Neut % (Auto) 59.8 Lymph % (Auto) 21.0 [place] % (Auto) 9.1 H Eos % (Auto) 9.1 H Baso % (Auto) 0.5 Lymph # (Auto) 1.17 [place] # (Auto) 0.5 Eos # (Auto) 0.5 H Baso # (Auto) 0.0 Abs Immat Gran (auto) 0.03 Absolute Neuts (auto) 3.3 Absolute Nucleated RBC 0.000 Nucleated RBC % 0.0 Sodium 135 L Potassium 3.5 Chloride 105 Carbon Dioxide 26 Anion Gap 4 BUN 4 L Creatinine 0.60 L Estim Creat Clear Calc Not Reportable Estimated GFR > 60 Glucose 89 Calcium 8.4 Total
== END 2024-02-03 15:45 | disposition home or self-care (01) | DRG 392 ==
LOC: ANHED 22:28 → ANH2MED 22:46
PROVIDERS: Nurse Practitioner Family; Admitting Provider Internal Medicine; Emergency Provider Physician Assistant; PCP Internal Medicine; Visit Provider Student in an Organized Health Care Education/Training Program
DX: K52.9 Noninfective gastroenteritis and colitis, unspecified (principal); E86.0 Dehydration; E87.6 Hypokalemia; M54.9 Dorsalgia, unspecified; M54.2 Cervicalgia; E78.5 Hyperlipidemia, unspecified; M17.0 Bilateral primary osteoarthritis of knee; Z90.49 Acquired absence of other specified parts of digestive tract; Z98.49 Cataract extraction status, unspecified eye; Z90.710 Acquired absence of both cervix and uterus
CPT/HCPCS: 36415; 74177; 80048; 80053; 81001; 83605; 83690; 83735; 85025; 87040; 87045; 87427; 87449; 87493; 96361; 96365; 96366; 96367; 96372; 97110; 97161; 97165; 97530; 99285; A9270; G0378; J0696; J1650; J1836; J3480; J7030; J7040; Q9967

== ENCOUNTER 2024-02-17 04:11 | Emergency (ER) | payer MEDICARE, MEDICAID, SELFPAY ==
[2024-02-17] VITALS (37 sets, daily range): BP systolic 74–109; BP diastolic 36–85; PULSE 82–107; RESP 13–35; TEMP 37.3–37.4; O2SAT 62–100
--- NOTE | ~2024-02-17 | CT_ITS ---
CT of the Abdomen and Pelvis: Indication: Abdominal pain Technique: 2.5 mm axial scans were obtained through the abdomen and pelvis following intravenous adm inistration of 100 cc of Omnipaque 350. Dose reduction technique was used on this scan by utilizing a utomated exposure control and iterative reconstruction technique. The dose-length product (DLP) was 4 81.92 mGy-cm. COMPARISON: 01/30/2024 Findings: Scans through the lung bases are unremarkable. Status post cholecystectomy. Calcified hepatic and splenic granulomas are again present. Mild intrahe patic and extra hepatic biliary dilatation is unchanged, presumably related to prior cholecystectomy. The pancreas, adrenals and right kidney are within normal limits. Stable 1.2 cm partially enhancing left renal mass. There are atherosclerotic calcifications of the aorta. No lymphadenopathy. There is mild diffuse large bowel wall thickening. No bowel obstruction. No abscess or free air. Smal l bowel unremarkable. Images through the pelvis were performed. Urinary bladder unremarkable. No pelvic mass seen. No ascit es. Impression: Pancolitis, most likely infectious/inflammatory nature, similar to prior exam. Correlate clinically. Stable 1.2 cm left renal mass, indeterminate. Dedicated imaging evaluation should be considered. Reviewed, dictated and finalized at [facility]. Impression: Pancolitis, most likely infectious/inflammatory nature, similar to prior exam. Correlate clinically. Stable 1.2 cm left renal mass, indeterminate. Dedicated imaging evaluation shou ld be considered.
[2024-02-17 04:29] LABS: Basophils Percent Auto 0.4 % (0.2-1.2); Eosinophils Absolute Auto 0.2 K/mm3 (0-0.3); Eosinophils Percent Auto 2.1 % (0-4.4); Hematocrit 39.7 % (37.0-47.0); Hemoglobin 12.4 g/dL (12.0-15.0); Immature Granulocyte Absolute 0.02 K/mm3 (0.00-0.031); Immature Granulocyte Percent A 0.2 % (0-0.5); Lymphocytes Absolute Auto 0.34 K/mm3 (0.9-3.2); Lymphocytes Percent Auto 4.2 % (18.3-44.2); Mean Corpuscular HGB Conc 31.2 g/dl (32-36); Mean Corpuscular Hemoglobin 29.7 pg (26-34); Mean Platelet Volume 10.4 fl (7.4-10.4); Monocytes Absolute Auto 0.3 K/mm3 (0.1-0.6); Monocytes Percent Auto 3.7 % (2.6-8.5); Neutrophils Absolute Auto 7.3 K/mm3 (1.3-6.7); Neutrophils Percent Auto 89.4 % (45.5-73.1); Platelet Count Result 290 k/mm3 (150-375); Red Blood Count 4.18 M/mm3 (4.2-5.4); Red Cell Distribution Width 13.4 % (11.5-14.5); White Blood Count 8.2 K/mm3 (4.5-10.0)
[2024-02-17] MEDS: ONDANSETRON INJ 4 MG/2 ML VIAL IV PUSH (04:30)
[2024-02-17] MEDS: SODIUM CHLORIDE 0.9% IV 1,000 ML 999 ML IV CONT (04:30)
[2024-02-17 04:39] LABS: Add Urine Microscopic? NO; Appearance Urine Clear (Clear); Bilirubin Urine Negative (Negative); Blood Urine Negative (Negative); Color Urine Yellow (Yellow); Glucose Urine UA Negative (Negative); Ketones Urine Negative (Negative); Leukocyte Esterase Ur Negative LEU/UL (Negative); Nitrate Urine Negative (Negative); Protein Urine Negative (Negative); Specific Grav Ur 1.018 (1.001-1.035); Urobilinogen Urine 0.2 mg/dL (<2.0); pH Urine 5.5 (5.0-9.0)
--- NOTE | 2024-02-17 05:09 | ED_ITS ---
HPI - General Adult General Chief complaint: Nausea/Vomiting/Diarrhea <Stew Lynn MD - Last Filed: 02/17/24 05:10> Stated complaint: N/V/D; COLITIS <Stew Lynn MD - Last Filed: 02/17/24 05:10> Time Seen by Provider: 02/17/24 04:20 <Stew Lynn MD - Last Filed: 02/17/24 05:10> History of Present Illness HPI narrative: 84-year-old female who presents emergency department with chief complaint of nausea vomiting and diarrhea patient states that she was admitted for colitis reports that she has pain on the left side of her abdomen patient reports she has had C diff before in the past. Patient denies fever <Stew Lynn MD - Last Filed: 02/17/24 05:10> Related Data Home medications: Home Medications Medication Instructions Recorded Confirmed Saccharomyces boulardii 250 mg 250 mg PO BID 02/25/23 01/31/24 capsule (Daily Probiotic (S. boulardii)) fexofenadine 180 mg tablet 180 mg PO DAILY 02/25/23 01/31/24 (Cyn Allergy) montelukast 10 mg tablet 10 mg PO HS 02/25/23 01/31/24 rosuvastatin 10 mg tablet 10 mg PO DAILY 02/25/23 01/31/24 acetaminophen 325 mg capsule 650 mg PO PRN PRN Pain 01/31/24 01/31/24 (Tylenol) calcium 600 mg (as carbonate)-vit 1 tablet PO DAILY 01/31/24 01/31/24 D3 20 mcg (800 unit) chewable tablet (Caltrate plus D) furosemide 20 mg tablet 20 mg PO DAILY 01/31/24 01/31/24 <Stew Lynn MD - Last Filed: 02/17/24 05:10> Allergies/adverse reactions: Allergies Allergy/AdvReac Type Severity Reaction Status Date / Time mold Allergy Anaphylaxis Verified 01/31/24 00:13 clarithromycin AdvReac Intermediate Hyperactive Verified 11/24/23 09:38 <Stew Lynn MD - Last Filed: 02/17/24 05:10> Review of Systems Review of Systems: A 10 system review of systems was completed on the patient and is negative except for what is stated in the HPI. Nursing and ancillary documentation was reviewed. <Stew Lynn MD - Last Filed: 02/17/24 05:10> [facility] Past Medical History Medical History: Medical History Allergic rhinitis Bilateral carpal tunnel syndrome High cholesterol Lymphedema of both lower extremities Osteoarthritis of knees, bilateral <Stew Lynn MD - Last Filed: 02/17/24 05:10> Surgical History Surgical History: Surgical History History of cataract extraction History of cholecystectomy History of hysterectomy <Stew Lynn MD - Last Filed: 02/17/24 05:10> Family History Family History: Family History Mother Diabetes mellitus Heart disease Daughter No problems noted. Father Diabetes mellitus Heart disease Sibling No problems noted. <Stew Lynn MD - Last Filed: 02/17/24 05:10> Social History Social History: Social History Social History: Code status: Full code (but she states she would not want to live if she did not have quality of life) Surrogate decision maker: Osbaldo (son) Smoking status: Never smoker Second hand tobacco smoke exposure: No Alcohol intake: never Substance use: never Substance use type: does not use Do You Feel Safe in your Home?: Yes Lack of Transportation: No Lack of Food: Never True Current Housing: I Have Housing Concerned About Future Housing: No Difficulty Paying Gas/Electric Bills: No Difficulty Paying for Meds: No Currently Unemployed: No Education: High School Diploma/GED Difficulty w/ Childcare or Family Care: No Living arrangements: with family Additional living arrangements comments: She lives in apartment with her only son. She has been since approximately 2005. She ambulates with a Rollator. Occupation/Education: retired Additional occupation/education comments: childcare Gender identity (if verbalized by the patient): Female Spiritual care concerns: No <Stew Lynn MD - Last Filed: 02/17/24 05:10> Exam Narrative: GENERAL: Well-appearing, well-nourished, and in no acute distress. HEAD: Normocephalic, atraumatic. EYES: PERRLA and EOMI. ENT: Nares clear, no rhinorrhea or epistaxis. Mucous membranes moist. NECK: Supple. CHEST: Clear to auscultation. No respiratory distress. HEART: Regular rate and rhythm. No murmur heard. Normal peripheral pulses. ABDOMEN: Soft, diffuse tenderness to palpation, nondistended, normal active bowel sounds. EXTREMITIES: Normal range of motion. No edema. SKIN: Warm, dry, no rash. NEURO: No focal deficits. Alert and oriented x3. PSYCH: Normal mood and affect. <Stew Lynn MD - Last Filed: 02/17/24 05:10> Course CLINICAL STAFF PHARMACIST/PA Physician Supervision Patient CT showed evidence of colitis. Patient is tolerating p.o. does feel improved. Patient will be discharged to home with additional medication for colitis. Patient had been on Cipro and Flagyl previously and patient was switched to Augmentin. No evidence of abscess or perforation on the CT scan. Patient was also provided additional medication for nausea control. Patient is afebrile with no leukocytosis and a stable hemoglobin of 12.4. Patient has no abnormalities on her CMP and UA was negative for infection. Patient was comfortable with plan for discharge and close follow-up. <Pablo Seaman MD - Last Filed: 02/17/24 15:53> Vital Signs Vital signs: Vital Signs Temperature 99.4 F 02/17/24 04:07 Pulse Rate 99 02/17/24 04:07 Respiratory Rate 18 02/17/24 04:07 Blood Pressure 107/85 02/17/24 04:07 Pulse Oximetry 99 02/17/24 04:07 Oxygen Delivery Room Air 02/17/24 04:07 Temperature 99.1 F 02/17/24 10:24 Pulse Rate 90 02/17/24 10:24 Respiratory Rate 19 02/17/24 10:24 Blood Pressure 109/46 L 02/17/24 10:24 Pulse Oximetry 94 02/17/24 10:24 Oxygen Delivery Room Air 02/17/24 04:07 <Stew Lynn MD - Last Filed: 02/17/24 05:10> Vital Signs Temperature 99.4 F 02/17/24 04:07 Pulse Rate 99 02/17/24 04:07 Respiratory Rate 18 02/17/24 04:07 Blood Pressure 107/85 02/17/24 04:07 Pulse Oximetry 99 02/17/24 04:07 Oxygen Delivery Room Air 02/17/24 04:07 Temperature 99.1 F 02/17/24 10:24 Pulse Rate 90 02/17/24 10:24 Respiratory Rate 19 02/17/24 10:24 Blood Pressure 109/46 L 02/17/24 10:24 Pulse Oximetry 94 02/17/24 10:24 Oxygen Delivery Room Air 02/17/24 04:07 <Pablo Seaman MD - Last Filed: 02/17/24 15:53> Medical Decision Making Differential Diagnosis Differential Diagnosis: Colitis, diverticulitis, appendicitis <Pablo Seaman MD - Last Filed: 02/17/24 15:53> Vital Signs Vital Signs: Vital Signs Temperature 99.4 F 02/17/24 04:07 Pulse Rate 99 02/17/24 04:07 Respiratory Rate 18 02/17/24 04:07 Blood Pressure 107/85 02/17/24 04:07 Pulse Oximetry 99 02/17/24 04:07 Oxygen Delivery Room Air 02/17/24 04:07 Temperature 99.1 F 02/17/24 10:24 Pulse Rate 90 02/17/24 10:24 Respiratory Rate 19 02/17/24 10:24 Blood Pressure 109/46 L 02/17/24 10:24 Pulse Oximetry 94 02/17/24 10:24 Oxygen Delivery Room Air 02/17/24 04:07 <Stew Lynn MD - Last Filed: 02/17/24 05:10> Vital Signs Temperature 99.4 F 02/17/24 04:07 Pulse Rate 99 02/17/24 04:07 Respiratory Rate 18 02/17/24 04:07 Blood Pressure 107/85 02/17/24 04:07 Pulse Oximetry 99 02/17/24 04:07 Oxygen Delivery Room Air 02/17/24 04:07 Temperature 99.1 F 02/17/24 10:24 Pulse Rate 90 02/17/24 10:24 Respiratory Rate 19 02/17/24 10:24 Blood Pressure 109/46 L 02/17/24 10:24 Pulse Oximetry 94 02/17/24 10:24 Oxygen Delivery Room Air 02/17/24 04:07 <Pablo Seaman MD - Last Filed: 02/17/24 15:53> Lab Data Lab results reviewed: Yes I reviewed the patient's lab results. <Pablo Seaman MD - Last Filed: 02/17/24 15:53> Result diagrams: 02/17/24 04:22 02/17/24 07:12 <Stew Lynn MD - Last Filed: 02/17/24 05:10> Labs: Lab Results 02/17/24 02/17/24 02/17/24 Range/Units 04:22 05:37 06:11 WBC 8.2 (4.5-10.0) K/mm3 RBC 4.18 L (4.2-5.4) M/mm3 Hgb 12.4 (12.0-15.0) g/dL Hct 39.7 (37.0-47.0) % MCV 95.0 (80-100) fl MCH 29.7 (26-34) pg MCHC 31.2 L (32-36) g/dl RDW 13.4 (11.5-14.5) % Plt Count 290 (150-375) k/mm3 MPV 10.4 (7.4-10.4) fl Immature Gran % (Auto) 0.2 (0-0.5) % Neut % (Auto) 89.4 H (45.5-73.1) % Lymph % (Auto) 4.2 L (18.3-44.2) % [place] % (Auto) 3.7 (2.6-8.5) % Eos % (Auto) 2.1 (0-4.4) % Baso % (Auto) 0.4 (0.2-1.2) % Lymph # (Auto) 0.34 L (0.9-3.2) K/mm3 [place] # (Auto) 0.3 (0.1-0.6) K/mm3 Eos # (Auto) 0.2 (0-0.3) K/mm3 Baso # (Auto) 0.0 (0.0-0.1) K/mm3 Abs Immat Gran (auto) 0.02 (0.00-0.031) K/mm3 Absolute Neuts (auto) 7.3 H (1.3-6.7) K/mm3 Absolute Nucleated RBC 0.000 (0.0-0.012) K/mm3 Nucleated RBC % 0.0 (0.0-0.2) % Sodium 137 (137-145) mmol/L Potassium 3.9 (3.4-5.0) mmol/L Chloride 105 (98-107) mmol/L Carbon Dioxide 23 (22-30) mmol/L Anion Gap 9 (4-12) mmol/L BUN 14 D (7-17) mg/dL Creatinine 0.60 L (0.7-1.0) mg/dL Estim Creat Clear Calc 53 ml/min Estimated GFR > 60 (59 - ) Glucose 104 (65-110) mg/dL Lactic Acid 1.9 (0.7-2.0) mmol/L Calcium 8.4 (8.4-10.2) mg/dL Total Bilirubin 0.8 (0.2-1.3) mg/dL AST 22 (14-36) U/L ALT 11 (6-35) U/L Alkaline Phosphatase 59 (38-126) U/L Total Protein 7.0 (6.3-8.2) g/dL Albumin 3.5 (3.5-5.1) g/dL Lipase 29 (23-300) U/L Urine Color Yellow (Yellow) Urine Appearance Clear (Clear) Urine pH 5.5 (5.0-9.0) Ur Specific [place] 1.018 (1.001-1.035) Urine Protein Negative (Negative) mg/dL Urine Glucose (UA) Negative (Negative) mg/dL Urine Ketones Negative (Negative) mg/dL Ur Blood (Man) Negative (Negative) Urine Nitrate Negative (Negative) Urine Bilirubin Negative (Negative) Urine Urobilinogen 0.2 (<2.0) mg/dL Leukocyte Esterase Rfl Negative (Negative) CALEB/UL 02/17/24 Range/Units 07:12 WBC (4.5-10.0) K/mm3 RBC (4.2-5.4) M/mm3 Hgb (12.0-15.0) g/dL Hct (37.0-47.0) % MCV (80-100) fl MCH (26-34) pg MCHC (32-36) g/dl RDW (11.5-14.5) % Plt Count (150-375) k/mm3 MPV (7.4-10.4) fl Immature Gran % (Auto) (0-0.5) % Neut % (Auto) (45.5-73.1) % Lymph % (Auto) (18.3-44.2) % [place] % (Auto) (2.6-8.5) % Eos % (Auto) (0-4.4) % Baso % (Auto) (0.2-1.2) % Lymph # (Auto) (0.9-3.2) K/mm3 [place] # (Auto) (0.1-0.6) K/mm3 Eos # (Auto) (0-0.3) K/mm3 Baso # (Auto) (0.0-0.1) K/mm3 Abs Immat Gran (auto) (0.00-0.031) K/mm3 Absolute Neuts (auto) (1.3-6.7) K/mm3 Absolute Nucleated RBC (0.0-0.012) K/mm3 Nucleated RBC % (0.0-0.2) % Sodium (137-145) mmol/L Potassium (3.4-5.0) mmol/L Chloride (98-107) mmol/L Carbon Dioxide (22-30) mmol/L Anion Gap (4-12) mmol/L BUN (7-17) mg/dL Creatinine 0.70 (0.7-1.0) mg/dL Estim Creat Clear Calc 46 ml/min Estimated GFR > 60 (59 - ) Glucose (65-110) mg/dL Lactic Acid (0.7-2.0) mmol/L Calcium (8.4-10.2) mg/dL Total Bilirubin (0.2-1.3) mg/dL AST (14-36) U/L ALT (6-35) U/L Alkaline Phosphatase (38-126) U/L Total Protein (6.3-8.2) g/dL Albumin (3.5-5.1) g/dL Lipase (23-300) U/L Urine Color (Yellow) Urine Appearance (Clear) Urine pH (5.0-9.0) Ur Specific [place] (1.001-1.035) Urine Protein (Negative) mg/dL Urine Glucose (UA) (Negative) mg/dL Urine Ketones (Negative) mg/dL Ur Blood (Man) (Negative) Urine Nitrate (Negative) Urine Bilirubin (Negative) Urine Urobilinogen (<2.0) mg/dL Leukocyte Esterase Rfl (Negative) CALEB/UL <Stew Lynn MD - Last Filed: 02/17/24 05:10> Lab Results 02/17/24 02/17/24 02/17/24 Range/Units 04:22 05:37 06:11 WBC 8.2 (4.5-10.0) K/mm3 RBC 4.18 L (4.2-5.4) M/mm3 Hgb 12.4 (12.0-15.0) g/dL Hct 39.7 (37.0-47.0) % MCV 95.0 (80-100) fl MCH 29.7 (26-34) pg MCHC 31.2 L (32-36) g/dl RDW 13.4 (11.5-14.5) % Plt Count 290 (150-375) k/mm3 MPV 10.4 (7.4-10.4) fl Immature Gran % (Auto) 0.2 (0-0.5) % Neut % (Auto) 89.4 H (45.5-73.1) % Lymph % (Auto) 4.2 L (18.3-44.2) % [place] % (Auto) 3.7 (2.6-8.5) % Eos % (Auto) 2.1 (0-4.4) % Baso % (Auto) 0.4 (0.2-1.2) % Lymph # (Auto) 0.34 L (0.9-3.2) K/mm3 [place] # (Auto) 0.3 (0.1-0.6) K/mm3 Eos # (Auto) 0.2 (0-0.3) K/mm3 Baso # (Auto) 0.0 (0.0-0.1) K/mm3 Abs Immat Gran (auto) 0.02 (0.00-0.031) K/mm3 Absolute Neuts (auto) 7.3 H (1.3-6.7) K/mm3 Absolute Nucleated RBC 0.000 (0.0-0.012) K/mm3 Nucleated RBC % 0.0 (0.0-0.2) % Sodium 137 (137-145) mmol/L Potassium 3.9 (3.4-5.0) mmol/L Chloride 105 (98-107) mmol/L Carbon Dioxide 23 (22-30) mmol/L Anion Gap 9 (4-12) mmol/L BUN 14 D (7-17) mg/dL Creatinine 0.60 L (0.7-1.0) mg/dL Estim Creat Clear Calc 53 ml/min Estimated GFR > 60 (59 - ) Glucose 104 (65-110) mg/dL Lactic Acid 1.9 (0.7-2.0) mmol/L Calcium 8.4 (8.4-10.2) mg/dL Total Bilirubin 0.8 (0.2-1.3) mg/dL AST 22 (14-36) U/L ALT 11 (6-35) U/L Alkaline Phosphatase 59 (38-126) U/L Total Protein 7.0 (6.3-8.2) g/dL Albumin 3.5 (3.5-5.1) g/dL Lipase 29 (23-300) U/L Urine Color Yellow (Yellow) Urine Appearance Clear (Clear) Urine pH 5.5 (5.0-9.0) Ur Specific [place] 1.018 (1.001-1.035) Urine Protein Negative (Negative) mg/dL Urine Glucose (UA) Negative (Negative) mg/dL Urine Ketones Negative (Negative) mg/dL Ur Blood (Man) Negative (Negative) Urine Nitrate Negative (Negative) Urine Bilirubin Negative (Negative) Urine Urobilinogen 0.2 (<2.0) mg/dL Leukocyte Esterase Rfl Negative (Negative) CALEB/UL 02/17/24 Range/Units 07:12 WBC (4.5-10.0) K/mm3 RBC (4.2-5.4) M/mm3 Hgb (12.0-15.0) g/dL Hct (37.0-47.0) % MCV (80-100) fl MCH (26-34) pg MCHC (32-36) g/dl RDW (11.5-14.5) % Plt Count (150-375) k/mm3 MPV (7.4-10.4) fl Immature Gran % (Auto) (0-0.5) % Neut % (Auto) (45.5-73.1) % Lymph % (Auto) (18.3-44.2) % [place] % (Auto) (2.6-8.5) % Eos % (Auto) (0-4.4) % Baso % (Auto) (0.2-1.2) % Lymph # (Auto) (0.9-3.2) K/mm3 [place] # (Auto) (0.1-0.6) K/mm3 Eos # (Auto) (0-0.3) K/mm3 Baso # (Auto) (0.0-0.1) K/mm3 Abs Immat Gran (auto) (0.00-0.031) K/mm3 Absolute Neuts (auto) (1.3-6.7) K/mm3 Absolute Nucleated RBC (0.0-0.012) K/mm3 Nucleated RBC % (0.0-0.2) % Sodium (137-145) mmol/L Potassium (3.4-5.0) mmol/L Chloride (98-107) mmol/L Carbon Dioxide (22-30) mmol/L Anion Gap (4-12) mmol/L BUN (7-17) mg/dL Creatinine 0.70 (0.7-1.0) mg/dL Estim Creat Clear Calc 46 ml/min Estimated GFR > 60 (59 - ) Glucose (65-110) mg/dL Lactic Acid (0.7-2.0) mmol/L Calcium (8.4-10.2) mg/dL Total Bilirubin (0.2-1.3) mg/dL AST (14-36) U/L ALT (6-35) U/L Alkaline Phosphatase (38-126) U/L Total Protein (6.3-8.2) g/dL Albumin (3.5-5.1) g/dL Lipase (23-300) U/L Urine Color (Yellow) Urine Appearance (Clear) Urine pH (5.0-9.0) Ur Specific [place] (1.001-1.035) Urine Protein (Negative) mg/dL Urine Glucose (UA) (Negative) mg/dL Urine Ketones (Negative) mg/dL Ur Blood (Man) (Negative) Urine Nitrate (Negative) Urine Bilirubin (Negative) Urine Urobilinogen (<2.0) mg/dL Leukocyte Esterase Rfl (Negative) CALEB/UL <Pablo Seaman MD - Last Filed: 02/17/24 15:53> Imaging Data Radiologist's impression: Impressions Abdomen/Pelvis CT 02/17/24 07:42 Impression: Pancolitis, most likely infectious/inflammatory nature, similar to prior exam. Correlate clinically. Stable 1.2 cm left renal mass, indeterminate. Dedicated imaging evaluation should be considered. <Pablo Seaman MD - Last Filed: 02/17/24 15:53> Discharge Plan Discharge Clinical Impression: Colitis <Stew Lynn MD - Last Filed: 02/17/24 05:10> Patient Disposition: Home, Self-Care <Stew Lynn MD - Last Filed: 02/17/24 05:10> Condition: Stable <Stew Lynn MD - Last Filed: 02/17/24 05:10> Instructions: Antibiotic Form, Clear Liquid Diet (ED), Gastroenteritis (ED), Acute Nausea and Vomiting (ED) <Stew Lynn MD - Last Filed: 02/17/24 05:10> Additional Instructions: Zofran as needed for nausea control. Clear liquid diet for the next 1-3 days. Antibiotic as directed until completed. Have close follow-up with your primary care physician. If you have any worsening symptoms please call or return to the emergency department. Have close follow-up with GI. <Stew Lynn MD - Last Filed: 02/17/24 05:10> Prescriptions: New amoxicillin-pot clavulanate 875-125 mg tablet 1 tablet PO Q12H Qty: 14 0RF ondansetron 4 mg tablet,disintegrating 4 mg PO Q8H PRN (Reason: nausea and vomiting) Qty: 14 0RF No Action montelukast 10 mg tablet 10 mg PO HS rosuvastatin 10 mg tablet 10 mg PO DAILY fexofenadine [Cyn Allergy] 180 mg tablet 180 mg PO DAILY Saccharomyces boulardii [Daily Probiotic (S. boulardii)] 250 mg capsule 250 mg PO BID furosemide 20 mg tablet 20 mg PO DAILY acetaminophen [Tylenol] 325 mg Capsule 650 mg PO PRN PRN (Reason: Pain) Caltrate 600 plus D 600 mg-20 mcg (800 unit) Tablet,Chewable 1 tablet PO DAILY loperamide 2 mg Capsule 2 mg PO PRN PRN (Reason: Diarrhea) Qty: 10 0RF metronidazole 500 mg Tablet 500 mg PO Q8HR Qty: 11 0RF cefdinir 300 mg Capsule 300 mg PO Q12HR Qty: 8 0RF <Stew Lynn MD - Last Filed: 02/17/24 05:10> Follow-up/Referrals: Konstantin,MD Yunior [Primary Care Provider] - <Stew Lynn MD - Last Filed: 02/17/24 05:10>
[2024-02-17 06:32] LABS: Lactic Acid Reflex 1.9 mmol/L (0.7-2.0)
[2024-02-17 06:55] LABS: Alanine Aminotransferase 11 U/L (6-35); Albumin Level 3.5 g/dL (3.5-5.1); Alkaline Phosphatase 59 U/L (38-126); Anion Gap 9 mmol/L (4-12); Aspartate Amino Transferase 22 U/L (14-36); Bilirubin,Total 0.8 mg/dL (0.2-1.3); Blood Urea Nitrogen 14 mg/dL (7-17); Calcium 8.4 mg/dL (8.4-10.2); Carbon Dioxide 23 mmol/L (22-30); Chloride 105 mmol/L (98-107); Estimated CRCL calculation 53 ml/min; Estimated Glomerular Filt Rate > 60; Glucose 104 mg/dL (65-110); Lipase 29 U/L (23-300); Potassium 3.9 mmol/L (3.4-5.0); Sodium 137 mmol/L (137-145)
[2024-02-17 07:16] LABS: Estimated CRCL calculation 46 ml/min; Estimated Glomerular Filt Rate > 60
[2024-02-17] MEDS: METOCLOPRAMIDE HCL INJ 10 MG/2 ML VIAL IV PUSH (08:40)
[2024-02-17] MEDS: AMOXICILLIN/CLAVULANATE K 875-125 MG TAB 1 TABLET PO (08:40)
== END 2024-02-17 10:26 | disposition home or self-care (01) ==
PROVIDERS: Emergency Provider Emergency Medicine; PCP Internal Medicine
DX: K52.9 Noninfective gastroenteritis and colitis, unspecified (principal); E78.00 Pure hypercholesterolemia, unspecified; M17.0 Bilateral primary osteoarthritis of knee; Z98.42 Cataract extraction status, left eye; Z98.41 Cataract extraction status, right eye; Z90.49 Acquired absence of other specified parts of digestive tract; Z90.710 Acquired absence of both cervix and uterus; Z79.899 Other long term (current) drug therapy; N28.89 Other specified disorders of kidney and ureter
CPT/HCPCS: 36415; 74177; 80053; 81003; 83605; 83690; 85025; 96361; 96374; 96375; 99284; A9270; J2405; J2765; J7030; Q9967

== ENCOUNTER 2024-02-17 19:37 | Inpatient (IN) | payer MEDICARE, MEDICAID, SELFPAY ==
--- NOTE | ~2024-02-17 | MR_ITS ---
EXAMINATION: MR abdomen wo/w con DATE: 02/20/2024 16:29 INDICATION: Left renal mass TECHNIQUE: Magnetic resonance imaging (MRI) of the abdomen was performed without and with 13 mL Multi enedelia intravenous contrast. Sequences included coronal T2-weighted SS-FSE, coronal and axial FS 2D-F IESTA, axial STIR FSE, axial T2-weighted SS-FSE, axial T2-weighted FS SS-FSE, axial diffusion-weighte d SE, axial dual-echo T1-weighted FSPGR, and axial and coronal T1-weighted LAVA. Postcontrast axial T 1-weighted LAVA images were obtained in a time course. Postcontrast coronal T1-weighted LAVA images w ere obtained. COMPARISON: CT dated 02/17/2024 FINDINGS: Heart size is normal. No pericardial effusion. There are small bilateral posterior layering pleural e ffusions with dependent atelectasis in both lower lobes. Mild intrahepatic ductal or ductal dilation as well as dilation of the common bile duct likely secondary to prior cholecystectomy with metallic m agnetic field artifact associate with cholecystectomy clips at the empty gallbladder fossa. Multiple scattered foci of low signal intensity in the liver and spleen corresponding to calcified granulomata on prior CT. Pancreas, bilateral adrenal glands and right kidney are normal. 1.4 cm T2 hyperintense lesion at the medial upper pole of the left kidney with central progressively enhancing component con sistent with renal cell carcinoma. Visualized portion of the bowels are unremarkable. Small amount of ascites scattered throughout the abdomen and pelvis along with some mesenteric, retroperitoneal and body wall edema. S-shaped thoracolumbar scoliosis with lower thoracic levoscoliosis and moderate lumb ar dextroscoliosis with severe spondylosis. No pathologic marrow replacing process. IMPRESSION: 1. 1.4 cm T2 hyperintense heterogeneously enhancing lesion at the upper pole the left kidney consiste nt with renal cell carcinoma. 2. 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 Reviewed, dictated and finalized at location [facility]. [facility] IMPRESSION: 1. 1.4 cm T2 hyperintense heterogeneously enhancing lesion at the upper pole th e left kidney consistent with renal cell carcinoma. 2. 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
[2024-02-17 19:43] VITALS: BP 89/58; PULSE 108; RESP 20; TEMP 37.1; O2SAT 96
[2024-02-17 19:47] VITALS: BP 92/58; PULSE 108
--- NOTE | 2024-02-17 19:47 | ECG_ITS ---
Test Date: 2024-02-17 20:29:19 Measurements Intervals [place] Rate: 93 P: 30 [place]: 190 QRS: 5 QRSD: 90 T: 66 QT: 357 QTc: 444 Interpretive Statements SINUS RHYTHM LOW QRS VOLTAGE IN PRECORDIAL LEADS [QRS DEFLECTION < 1.0 mV IN CHEST LEADS] NONSPECIFIC T-WAVE ABNORMALITY No previous ECG available for comparison Electronically Signed On 02-18-2024 11:41:12 CDT by Eric Shepard M.D.
--- NOTE | 2024-02-17 19:48 | ED_ITS ---
HPI - Weakness General Chief complaint: Weakness <Aline Calhoun APRN - Last Filed: 02/17/24 19:50> Stated complaint: diarrhea and dry mouth and weakness <Aline Calhoun APRN - Last Filed: 02/17/24 19:50> Time Seen by Provider: 02/17/24 19:40 <Aline Calhoun APRN - Last Filed: 02/17/24 19:50> Focused HPI: Patient is an 84-year-old female presents to the ER with ongoing abdominal pain and diarrhea. She reports she has seen ER this morning, diagnosed with colitis, and discharged home. Patient reports she went home and continues to feel weak. She reports she has no history of low blood pressure. Patient denies any chest pain, shortness of breath, or recent fevers. GENERAL: Well-appearing, well-nourished, and in no acute distress. HEAD: Normocephalic, atraumatic. CHEST: Clear to auscultation. ?No respiratory distress. HEART: Tachycardia, regular rate. NEURO: ?Alert and oriented x3. Patient screened in triage and initial orders placed.? ?Additional care and disposition to be based upon?diagnostic testing and treatment. <Aline Calhoun APRN - Last Filed: 02/17/24 19:50> History of Present Illness HPI Narrative: This 84-year-old female presents emergency department with chief complaint of diarrhea and generalized weakness. Patient was seen in the emergency department earlier this morning and found to have colitis the patient went home it has continued to have diarrhea and now is weak to the point that she is unable to get up and walk without full assistance. Patient reports he has abdominal discomfort <Stew Lynn MD - Last Filed: 02/17/24 21:30> Related Data Home medications: Home Medications Medication Instructions Recorded Confirmed Saccharomyces boulardii 250 mg 250 mg PO BID 02/25/23 01/31/24 capsule (Daily Probiotic (S. boulardii)) fexofenadine 180 mg tablet 180 mg PO DAILY 02/25/23 01/31/24 (Cyn Allergy) montelukast 10 mg tablet 10 mg PO HS 02/25/23 01/31/24 rosuvastatin 10 mg tablet 10 mg PO DAILY 02/25/23 01/31/24 acetaminophen 325 mg capsule 650 mg PO PRN PRN Pain 01/31/24 01/31/24 (Tylenol) calcium 600 mg (as carbonate)-vit 1 tablet PO DAILY 01/31/24 01/31/24 D3 20 mcg (800 unit) chewable tablet (Caltrate plus D) furosemide 20 mg tablet 20 mg PO DAILY 01/31/24 01/31/24 <Aline Calhoun APRN - Last Filed: 02/17/24 19:50> Allergies/Adverse reactions: Allergies Allergy/AdvReac Type Severity Reaction Status Date / Time mold Allergy Anaphylaxis Verified 02/17/24 19:42 clarithromycin AdvReac Intermediate Hyperactive Verified 02/17/24 19:42 <Aline Calhoun APRN - Last Filed: 02/17/24 19:50> Review of Systems Review of Systems: A 10 system review of systems was completed on the patient and is negative except for what is stated in the HPI. Nursing and ancillary documentation was reviewed. <Stew Lynn MD - Last Filed: 02/17/24 21:30> [facility] Past Medical History Medical History: Medical History Allergic rhinitis Bilateral carpal tunnel syndrome High cholesterol Lymphedema of both lower extremities Osteoarthritis of knees, bilateral <Aline Calhoun APRN - Last Filed: 02/17/24 19:50> Surgical History Surgical History: Surgical History History of cataract extraction History of cholecystectomy History of hysterectomy <Aline Calhoun APRN - Last Filed: 02/17/24 19:50> Family History Family History: Family History Mother Diabetes mellitus Heart disease Daughter No problems noted. Father Diabetes mellitus Heart disease Sibling No problems noted. <Aline Calhoun APRN - Last Filed: 02/17/24 19:50> Social History Social History: Social History Social History: Code status: Full code (but she states she would not want to live if she did not have quality of life) Surrogate decision maker: Osbaldo (son) Smoking status: Never smoker Second hand tobacco smoke exposure: No Alcohol intake: never Substance use: never Substance use type: does not use Do You Feel Safe in your Home?: Yes Lack of Transportation: No Lack of Food: Never True Current Housing: I Have Housing Concerned About Future Housing: No Difficulty Paying Gas/Electric Bills: No Difficulty Paying for Meds: No Currently Unemployed: No Education: High School Diploma/GED Difficulty w/ Childcare or Family Care: No Living arrangements: with family Additional living arrangements comments: She lives in apartment with her only son. She has been since approximately 2005. She ambulates with a Rol lator. Occupation/Education: retired Additional occupation/education comments: childcare Gender identity (if verbalized by the patient): Female Spiritual care concerns: No <Aline Calhoun APRN - Last Filed: 02/17/24 19:50> Exam Narrative: GENERAL: Well-appearing, well-nourished, and in no acute distress. HEAD: Normocephalic, atraumatic. EYES: PERRLA and EOMI. ENT: Nares clear, no rhinorrhea or epistaxis. Mucous membranes moist. NECK: Supple. CHEST: Clear to auscultation. No respiratory distress. HEART: Regular rate and rhythm. No murmur heard. Normal peripheral pulses. ABDOMEN: Soft, mild tenderness to palpation, nondistended, normal active bowel sounds. EXTREMITIES: Normal range of motion. No edema. SKIN: Warm, dry, no rash. NEURO: No focal deficits. Alert and oriented x3. PSYCH: Normal mood and affect. <Stew Lynn MD - Last Filed: 02/17/24 21:30> Course Vital Signs Vital signs: Vital Signs Temperature 37.1 C 02/17/24 19:43 Pulse Rate 108 H 02/17/24 19:43 Respiratory Rate 20 02/17/24 19:43 Blood Pressure 89/58 L 02/17/24 19:43 Pulse Oximetry 96 02/17/24 19:43 Oxygen Delivery Room Air 02/17/24 19:43 Temperature 37.1 C 02/17/24 19:43 Pulse Rate 108 H 02/17/24 19:47 Respiratory Rate 20 02/17/24 19:43 Blood Pressure 92/58 L 02/17/24 19:47 Pulse Oximetry 96 02/17/24 19:43 Oxygen Delivery Room Air 02/17/24 19:43 <Aline Calhoun APRN - Last Filed: 02/17/24 19:50> Vital Signs Temperature 37.1 C 02/17/24 19:43 Pulse Rate 108 H 02/17/24 19:43 Respiratory Rate 20 02/17/24 19:43 Blood Pressure 89/58 L 02/17/24 19:43 Pulse Oximetry 96 02/17/24 19:43 Oxygen Delivery Room Air 02/17/24 19:43 Temperature 37.1 C 02/17/24 19:43 Pulse Rate 108 H 02/17/24 19:47 Respiratory Rate 20 02/17/24 19:43 Blood Pressure 92/58 L 02/17/24 19:47 Pulse Oximetry 96 02/17/24 19:43 Oxygen Delivery Room Air 02/17/24 19:43 <Stew Lynn MD - Last Filed: 02/17/24 21:30> MDM - Weakness MDM Narrative Medical decision making narrative: Differential diagnosis includes dehydration, electrolyte abnormality, colitis, diverticulitis Laboratory studies were obtained the patient white count 1 hemoglobin is 11.0 electrolytes showed a BUN of 19 creatinine 0.8 lactic acid was 1.6 liver enzymes within normal limits EKG showed no acute ischemic changes initial troponin 0.074 CRP was elevated at 5.4 CT scan from this morning showed evidence of colitis The patient had been started on Augmentin and discharged from the emergency department Patient was started on Zosyn due troponin will be trended and the patient was given aspirin <Stew Lynn MD - Last Filed: 02/17/24 21:30> Lab Data Result diagrams: 02/17/24 20:22 02/17/24 20:22 <Aline Calhoun APRN - Last Filed: 02/17/24 19:50> Labs: Lab Results 02/17/24 Range/Units 20:22 WBC 5.1 (4.5-10.0) K/mm3 RBC 3.67 L (4.2-5.4) M/mm3 Hgb 11.0 L (12.0-15.0) g/dL Hct 34.3 L (37.0-47.0) % MCV 93.5 (80-100) fl MCH 30.0 (26-34) pg MCHC 32.1 (32-36) g/dl RDW 13.5 (11.5-14.5) % Plt Count 287 (150-375) k/mm3 MPV 9.7 (7.4-10.4) fl Immature Gran % (Auto) 0.2 (0-0.5) % Neut % (Auto) 84.2 H (45.5-73.1) % Lymph % (Auto) 7.1 L (18.3-44.2) % Dixon % (Auto) 7.9 (2.6-8.5) % Eos % (Auto) 0.0 (0-4.4) % Baso % (Auto) 0.6 (0.2-1.2) % Lymph # (Auto) 0.36 L (0.9-3.2) K/mm3 Dixon # (Auto) 0.4 (0.1-0.6) K/mm3 Eos # (Auto) 0.0 (0-0.3) K/mm3 Baso # (Auto) 0.0 (0.0-0.1) K/mm3 Abs Immat Gran (auto) 0.01 (0.00-0.031) K/mm3 Absolute Neuts (auto) 4.3 (1.3-6.7) K/mm3 Absolute Nucleated RBC 0.000 (0.0-0.012) K/mm3 Nucleated RBC % 0.0 (0.0-0.2) % PT 13.9 (11.1-14.7) Seconds INR 1.0 APTT 27.1 (22.3-36.8) Seconds Sodium 134 L (137-145) mmol/L Potassium 3.4 (3.4-5.0) mmol/L Chloride 99 (98-107) mmol/L Carbon Dioxide 23 (22-30) mmol/L Anion Gap 12 (4-12) mmol/L BUN 19 H (7-17) mg/dL Creatinine 0.80 (0.7-1.0) mg/dL Estim Creat Clear Calc Not Reportable Estimated GFR > 60 (59 - ) Glucose 92 (65-110) mg/dL Lactic Acid 1.6 (0.7-2.0) mmol/L Calcium 9.2 (8.4-10.2) mg/dL Total Bilirubin 1.0 (0.2-1.3) mg/dL AST 28 (14-36) U/L ALT 14 (6-35) U/L Alkaline Phosphatase 66 (38-126) U/L Troponin I 0.074 H* (0.000-0.034) ng/mL C-Reactive Protein 5.4 H (<1.0) mg/dL Total Protein 7.0 (6.3-8.2) g/dL Albumin 4.1 (3.5-5.1) g/dL Lipase 19 L (23-300) U/L <Aline Calhoun, HUMAN RESOURCES COMPLIANCE MANAGER - Last Filed: 02/17/24 19:50> Lab Results 02/17/24 Range/Units 20:22 WBC 5.1 (4.5-10.0) K/mm3 RBC 3.67 L (4.2-5.4) M/mm3 Hgb 11.0 L (12.0-15.0) g/dL Hct 34.3 L (37.0-47.0) % MCV 93.5 (80-100) fl MCH 30.0 (26-34) pg MCHC 32.1 (32-36) g/dl RDW 13.5 (11.5-14.5) % Plt Count 287 (150-375) k/mm3 MPV 9.7 (7.4-10.4) fl Immature Gran % (Auto) 0.2 (0-0.5) % Neut % (Auto) 84.2 H (45.5-73.1) % Lymph % (Auto) 7.1 L (18.3-44.2) % Dixon % (Auto) 7.9 (2.6-8.5) % Eos % (Auto) 0.0 (0-4.4) % Baso % (Auto) 0.6 (0.2-1.2) % Lymph # (Auto) 0.36 L (0.9-3.2) K/mm3 Dixon # (Auto) 0.4 (0.1-0.6) K/mm3 Eos # (Auto) 0.0 (0-0.3) K/mm3 Baso # (Auto) 0.0 (0.0-0.1) K/mm3 Abs Immat Gran (auto) 0.01 (0.00-0.031) K/mm3 Absolute Neuts (auto) 4.3 (1.3-6.7) K/mm3 Absolute Nucleated RBC 0.000 (0.0-0.012) K/mm3 Nucleated RBC % 0.0 (0.0-0.2) % PT 13.9 (11.1-14.7) Seconds INR 1.0 APTT 27.1 (22.3-36.8) Seconds Sodium 134 L (137-145) mmol/L Potassium 3.4 (3.4-5.0) mmol/L Chloride 99 (98-107) mmol/L Carbon Dioxide 23 (22-30) mmol/L Anion Gap 12 (4-12) mmol/L BUN 19 H (7-17) mg/dL Creatinine 0.80 (0.7-1.0) mg/dL Estim Creat Clear Calc Not Reportable Estimated GFR > 60 (59 - ) Glucose 92 (65-110) mg/dL Lactic Acid 1.6 (0.7-2.0) mmol/L Calcium 9.2 (8.4-10.2) mg/dL Total Bilirubin 1.0 (0.2-1.3) mg/dL AST 28 (14-36) U/L ALT 14 (6-35) U/L Alkaline Phosphatase 66 (38-126) U/L Troponin I 0.074 H* (0.000-0.034) ng/mL C-Reactive Protein 5.4 H (<1.0) mg/dL Total Protein 7.0 (6.3-8.2) g/dL Albumin 4.1 (3.5-5.1) g/dL Lipase 19 L (23-300) U/L <Stew Lynn MD - Last Filed: 02/17/24 21:30> Discharge Plan Discharge Clinical Impression: Abdominal pain, Colitis, Elevated troponin <Aline Calhoun APRN - Last Filed: 02/17/24 19:50> Patient Disposition: Still a Patient <Aline Calhoun APRN - Last Filed: 02/17/24 19:50> Condition: Stable <Aline Calhoun APRN - Last Filed: 02/17/24 19:50> Prescriptions: No Action montelukast 10 mg tablet 10 mg PO HS rosuvastatin 10 mg tablet 10 mg PO DAILY fexofenadine [Cyn Allergy] 180 mg tablet 180 mg PO DAILY Saccharomyces boulardii [Daily Probiotic (S. boulardii)] 250 mg capsule 250 mg PO BID amoxicillin-pot clavulanate 875-125 mg tablet 1 tablet PO Q12H Qty: 14 0RF ondansetron 4 mg tablet,disintegrating 4 mg PO Q8H PRN (Reason: nausea and vomiting) Qty: 14 0RF furosemide 20 mg tablet 20 mg PO DAILY acetaminophen [Tylenol] 325 mg Capsule 650 mg PO PRN PRN (Reason: Pain) Caltrate 600 plus D 600 mg-20 mcg (800 unit) Tablet,Chewable 1 tablet PO DAILY loperamide 2 mg Capsule 2 mg PO PRN PRN (Reason: Diarrhea) Qty: 10 0RF metronidazole 500 mg Tablet 500 mg PO Q8HR Qty: 11 0RF cefdinir 300 mg Capsule 300 mg PO Q12HR Qty: 8 0RF <Aline Calhoun APRN - Last Filed: 02/17/24 19:50> Follow-up/Referrals: Konstantin,MD Yunior [Primary Care Provider] - <Aline Calhoun APRN - Last Filed: 02/17/24 19:50> Time of Disposition: 21:28 <Aline Calhoun APRN - Last Filed: 02/17/24 19:50> 21:28 <Stew Lynn MD - Last Filed: 02/17/24 21:30>
[2024-02-17 20:31] LABS: Basophils Percent Auto 0.6 % (0.2-1.2); Hematocrit 34.3 % (37.0-47.0); Immature Granulocyte Absolute 0.01 K/mm3 (0.00-0.031); Immature Granulocyte Percent A 0.2 % (0-0.5); Lymphocytes Absolute Auto 0.36 K/mm3 (0.9-3.2); Lymphocytes Percent Auto 7.1 % (18.3-44.2); Mean Corpuscular HGB Conc 32.1 g/dl (32-36); Mean Corpuscular Volume 93.5 fl (80-100); Mean Platelet Volume 9.7 fl (7.4-10.4); Monocytes Absolute Auto 0.4 K/mm3 (0.1-0.6); Monocytes Percent Auto 7.9 % (2.6-8.5); Neutrophils Absolute Auto 4.3 K/mm3 (1.3-6.7); Neutrophils Percent Auto 84.2 % (45.5-73.1); Platelet Count Result 287 k/mm3 (150-375); Red Blood Count 3.67 M/mm3 (4.2-5.4); Red Cell Distribution Width 13.5 % (11.5-14.5); White Blood Count 5.1 K/mm3 (4.5-10.0)
[2024-02-17 20:42] LABS: Lactic Acid Reflex 1.6 mmol/L (0.7-2.0)
[2024-02-17 20:44] LABS: Alanine Aminotransferase 14 U/L (6-35); Albumin Level 4.1 g/dL (3.5-5.1); Alkaline Phosphatase 66 U/L (38-126); Anion Gap 12 mmol/L (4-12); Aspartate Amino Transferase 28 U/L (14-36); Blood Urea Nitrogen 19 mg/dL (7-17); CRP 5.4 mg/dL (<1.0); Calcium 9.2 mg/dL (8.4-10.2); Carbon Dioxide 23 mmol/L (22-30); Chloride 99 mmol/L (98-107); Estimated Glomerular Filt Rate > 60; Glucose 92 mg/dL (65-110); Lipase 19 U/L (23-300); Potassium 3.4 mmol/L (3.4-5.0); Sodium 134 mmol/L (137-145)
[2024-02-17 20:51] LABS: Prothrombin Time 13.9 Seconds (11.1-14.7)
[2024-02-17 20:52] LABS: Partial Thromboplastin Time 27.1 Seconds (22.3-36.8)
[2024-02-17] MEDS: SODIUM CHLORIDE 0.9% IV 1,000 ML 999 ML IV CONT ×2 (20:58→22:03)
[2024-02-17 20:59] LABS: Troponin I 0.074 ng/mL (0.000-0.034)
[2024-02-17] MEDS: ASPIRIN 81 MG CHEWABLE TABLET 324 MG PO (21:25)
[2024-02-17 22:03] VITALS: BP 94/48; PULSE 84; RESP 15; O2SAT 100
[2024-02-17] MEDS: PIPERACILLN/TAZ 3.375GM/NS50ML 3.375 GM/50 ML BAG IVPB (22:03)
[2024-02-17 22:11] VITALS: BP 96/48; PULSE 88; RESP 15; O2SAT 96
[2024-02-17 22:20] VITALS: BMI 28.0
--- NOTE | 2024-02-17 22:20 | PC.NURSE ---
This patient, Sujatha Glez, was admitted to IMU Room 231-01. Patient/family oriented to hospital policies and general routines including ID bracelet, bed and alarms, visiting hours, pain management, procedures, bathroom and other care routines, personal items, smoking policy, room service/diet, and visiting hours. Information on how to activate the Rapid Response Team has been discussed. Patient/Family are encouraged to report perceived risks to care and to ask questions if they do not understand what they are told or what they should do.
[2024-02-17 22:25] VITALS: BP 97/58; PULSE 82; RESP 18; TEMP 37.9; O2SAT 100; BMI 28.0
[2024-02-17] MEDS: SODIUM CHLORIDE 0.9% IV 1,000 ML 150 ML IV CONT (23:10)
[2024-02-18] VITALS (12 sets, daily range): BP systolic 98–107; BP diastolic 43–57; PULSE 70–87; RESP 16–24; TEMP 36.6–37.4; O2SAT 93–100
--- NOTE | 2024-02-18 00:56 | P.HP_ITS ---
H&P: HPI History of Present Illness Date/Time: 02/18/24 00:56 Chief Complaint: Worsening diarrhea Narrative: 84-year-old female with a past medical history chronic lower extremity lymphedema, allergic rhinitis and hyperlipidemia who presented to the ER with worsening diarrhea. The patient had been admitted to the hospital 01/30/2024 through 02/03/2024 for rodgers colitis noted on CT scan. At that time C diff claudia ting was negative and stool cultures were negative. The patient was started on Imodium when stool specimens were negative for infectious source. Patient was placed on empiric antibiotic therapy with Rocephin and Flagyl. According to the notes patient's diarrhea did improve and she had a firm palpable stool prior to discharge. She was discharged home on cefdinir and Flagyl. However, the patien t states that her diarrhea really did not improved. She has had persistent worsening diarrhea since discharge. She had also developed significant nausea vomiting and has had decreased oral intake. She was having worsening abdominal pain in her left lower abdomen. Her stool is mucousy and foul-smelling. She became so weak that she decided come back to the ER on the morning of the . At that time she was noted to be mildly hypotensive in received fluids with improvement in her blood pressures. A CT scan at that time demonstrated persistent rodgers colitis. The patient did not have any diarrheal stools in the ER. The ER provider discharged the patient home on Augmentin. She did take 1 dose of the Augmentin but returned that evening when she was having more incontinent stools and more profound weakness. On arrival to the ER she was noted to be hypotensive again and received 2 more L of isotonic fluids. She did have improvement in her blood pressures. However, the patient did look acutely ill. Due to tachycardia an EKG was performed and troponins were obtained. Patient's troponins were mildly elevated. Patient denied having any chest pain. The patient was subsequently placed on fluids and admitted to IMU for monitoring. On arrival to the IMU the patient had a large incontinent diarrheal stool that seemed consistent in appearance with C diff. stool was sent for testi ng is found to be positive for C diff. patient was started on Dificid. The patient was quite loquacious during her prior hospital stay. At the time of my evaluation today the patient was quite somnolent and had difficulty staying awake to provide of recent events since discharge. As such most of the information was obtained from ER physician report and nursing documentation. Review of Systems Review of Systems: Patient is somnolent and had to be woke up several times during the interview. She seemed acutely ill and had difficulty staying awake for the review of systems. [facility] Past Medical History Medical History Allergic rhinitis Bilateral carpal tunnel syndrome High cholesterol Lymphedema of both lower extremities Osteoarthritis of knees, bilateral Surgical History Surgical History History of cataract extraction History of cholecystectomy History of hysterectomy Family History Family History Mother Diabetes mellitus Heart disease Daughter No problems noted. Father Diabetes mellitus Heart disease Sibling No problems noted. Social History Social History Social History: Code status: Full code (but she states she would not want to live if she did not have quality of life) Surrogate decision maker: Osbaldo (son) Smoking status: Never smoker Second hand tobacco smoke exposure: No Alcohol intake: never Substance use: never Substance use type: does not use Do You Feel Safe in your Home?: Yes Lack of Transportation: No Lack of Food: Never True Current Housing: I Have Housing Concerned About Future Housing: No Difficulty Paying Gas/Electric Bills: No Difficulty Paying for Meds: No Currently Unemployed: No Education: Decline to Answer Difficulty w/ Childcare or Family Care: No Living arrangements: with family Additional living arrangements comments: She lives in apartment with her only son. She has been since approximately 2005. She ambulates with a Rollator. 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 boulardii)) fexofenadine 180 mg tablet 180 mg PO DAILY 02/25/23 02/17/24 History (Cyn Allergy) montelukast 10 mg tablet 10 mg PO HS 02/25/23 02/17/24 History rosuvastatin 10 mg tablet 10 mg PO DAILY 02/25/23 02/17/24 History acetaminophen 325 mg capsule 650 mg PO PRN PRN Pain 01/31/24 02/17/24 History (Tylenol) calcium 600 mg (as carbonate)-vit 1 tablet PO DAILY 01/31/24 02/17/24 History D3 20 mcg (800 unit) chewable tablet (Caltrate plus D) furosemide 20 mg tablet 20 mg PO DAILY 01/31/24 02/17/24 History loperamide 2 mg capsule 2 mg PO PRN PRN Diarrhea #10 caps 02/03/24 02/17/24 Rx amoxicillin 875 mg-potassium 1 tablet PO Q12H #14 tabs 02/17/24 02/17/24 Rx clavulanate 125 mg tablet ondansetron 4 mg disintegrating 4 mg PO Q8H PRN nausea and 02/17/24 02/17/24 Rx tablet vomiting #14 tabs Allergies Allergy/AdvReac Type Severity Reaction Status Date / Time mold Allergy Anaphylaxis Verified 02/17/24 19:42 clarithromycin AdvReac Intermediate Hyperactive Verified 02/17/24 19:42 Vital Signs Vital Signs - 24 hr 02/17/24 19:43 02/17/24 19:47 02/17/24 22:03 Temperature 98.8 F Pulse Rate 108 H 108 H 84 Respiratory Rate 20 15 Blood Pressure 89/58 L 92/58 L 94/48 L Pulse Oximetry 96 100 Oxygen Delivery Room Air 02/17/24 22:11 02/17/24 22:25 02/17/24 23:57 Temperature 100.2 F H Pulse Rate 88 82 Respiratory Rate 15 18 Blood Pressure 96/48 L 97/58 L Pulse Oximetry 96 100 Oxygen Delivery Room Air 02/18/24 00:00 Temperature 99.3 F Pulse Rate 87 Respiratory Rate 16 Blood Pressure 101/43 L Pulse Oximetry 100 Oxygen Delivery Exam Narrative: Weight 65 kg BMI 28 Const: Other: Acutely ill-appearing, otherwise well-developed well-nourished, appears stated age HENMT: Other: Mucous membranes are dry, no oral pharyngeal erythema, no conjunctival pallor, no scleral icterus, head is normocephalic atraumatic, periorbital edema bilaterally Eyes: Other: Please see above Neck: Other: No JVD, no thyromegaly, supple Resp: Other: Clear to auscultation bilaterally, no increased work of breathing Cardio: Other: Regular rate, regular rhythm, 2+ bilateral radial pedal pulses, no JVD, no mur mur GI: Other: Diffusely tender, normoactive bowel sounds, no organomegaly, soft, mildly distended Skin: Other: Marked pallor, cool to touch, 2-3 second cap refill, no mottling Neuro: Other: Patient is somnolent difficult to arouse she had be woke several times during the course of my evaluation but was oriented x4, no facial asymmetry, moves all extremities equally, pupils are equal and reactive Extrem: Other: Chronic lower extremity lymphedema, patient does have some swelling of bilateral upper extremities currently as well, moves all extremities equally, no cyanosis, normal muscle tone Psych: Other: Somnolent, difficult to arouse, cooperative, otherwise unable to evaluate H&P: Results Labs Labs: Laboratory Tests 02/17/24 20:22 02/17/24 20:22 02/17/24 02/18/24 02/18/24 20:22 00:32 01:19 WBC 5.1 RBC 3.67 L Hgb 11.0 L Hct 34.3 L MCV 93.5 MCH 30.0 MCHC 32.1 RDW 13.5 Plt Count 287 MPV 9.7 Immature Gran % (Auto) 0.2 Neut % (Auto) 84.2 H Lymph % (Auto) 7.1 L Alfalfa % (Auto) 7.9 Eos % (Auto) 0.0 Baso % (Auto) 0.6 Lymph # (Auto) 0.36 L Alfalfa # (Auto) 0.4 Eos # (Auto) 0.0 Baso # (Auto) 0.0 Abs Immat Gran (auto) 0.01 Absolute Neuts (auto) 4.3 Absolute Nucleated RBC 0.000 Nucleated RBC % 0.0 PT 13.9 INR 1.0 APTT 27.1 Sodium 134 L Potassium 3.4 Chloride 99 Carbon Dioxide 23 Anion Gap 12 BUN 19 H Creatinine 0.80 Estim Creat Clear Calc Not Reportable Estimated GFR > 60 Glucose 92 Lactic Acid 1.6 Calcium 9.2 Total Bilirubin 1.0 AST 28 ALT 14 Alkaline Phosphatase 66 Troponin I 0.074 H* 0.111 H* D C-Reactive Protein 5.4 H Total Protein 7.0 Albumin 4.1 Lipase 19 L C. difficile (PCR) Positive A* 02/18/24 03:30 WBC RBC Hgb Hct MCV MCH MCHC RDW Plt Count MPV Immature Gran % (Auto) Neut % (Auto) Lymph % (Auto) Alfalfa % (Auto) Eos % (Auto) Baso % (Auto) Lymph # (Auto) Alfalfa # (Auto) Eos # (Auto) Baso # (Auto) Abs Immat Gran (auto) Absolute Neuts (auto) Absolute Nucleated RBC Nucleated RBC % PT INR APTT Sodium Potassium Chloride Carbon Dioxide Anion Gap BUN Creatinine Estim Creat Clear Calc Estimated GFR Glucose Lactic Acid Calcium Total Bilirubin AST ALT Alkaline Phosphatase Troponin I 0.094 H* C-Reactive Protein Total Protein Albumin Lipase C. difficile (PCR) CT of the abdomen pelvis with contrast: Rodgers colitis most likely infectious/inflammatory in nature similar to prior exam stable 1.2 cm left renal mass indeterminate nature dedicated imaging should be considered. Assessment and Plan Assessment and plan (1) C. difficile colitis: Code(s): A04.72 - Enterocolitis due to Clostridium difficile, not specified as recurrent Status: Acute (2) Elevated troponin: Code(s): R79.89 - Other specified abnormal findings of blood chemistry Status: Acute (3) Acute metabolic encephalopathy: Code(s): G93.41 - Metabolic encephalopathy Status: Acute (4) Hypotension due to hypovolemia: Code(s): E86.1 - Hypovolemia Status: Acute (5) Left renal mass: Code(s): N28.89 - Other specified disorders of kidney and ureter Status: Acute Plan The patient had head as C diff colitis with false negative test results during last hospitalization. Will start patient odd Dificid. Will continue IV fluid hydration but will decrease rate to 100 it both at our. Will monitor strict Is&Os. Hypotension has resolved. Will monitor closely. Patient did have mildly elevated troponins under likely secondary to demand ischemia in the setting of hypotension from Hypovolemia. Initially troponins did trend up minimally but have also trended back down since. No evidence of ischemia on EKG. Patient is quite somnolent which is unusual for her. During her last hospitalization she was quite loquacious and talkative. The patient did arouse to verbal stimuli and was oriented. Will monitor neurologic checks and re- evaluate. Will treat underlying infectious cause and monitor blood pressures closely. Patient has been admitted as observation status. Quality VTE Prophylaxis VTE prophylaxis: pharmacologic ordered (Lovenox 40 mg subQ daily.) Hospitalist [facility] Advance Care Plan I have confirmed that the patient's Advanced Care Plan is present, code status is documented, or surrogate decision maker is listed in patient medical record.: Yes Medication Reconciliation I have utilized all available resources to obtain, update and review the patients current medications (includes all prescriptions, OTC, herbals, cannabis, and nutritional supplements).: Yes
[2024-02-18 01:00] LABS: Troponin I 0.111 ng/mL (0.000-0.034)
[2024-02-18] MEDS: ONDANSETRON INJ 4 MG/2 ML VIAL IV PUSH (01:20)
[2024-02-18 02:20] LABS: Toxigenic C. Diff POSITIVE (NEGATIVE)
[2024-02-18] MEDS: FIDAXOMICIN 200 MG TABLET PO ×2 (03:03→20:14)
[2024-02-18] MEDS: ACETAMINOPHEN 325 MG TABLET 650 MG PO (03:04)
[2024-02-18 04:02] LABS: Troponin I 0.094 ng/mL (0.000-0.034)
[2024-02-18] MEDS: SACCHAROMYCES BOULARDII 250 MG CAPSULE PO ×2 (09:39→17:12)
[2024-02-18] MEDS: ENOXAPARIN 40 MG/0.4 ML SYRINGE SUB-Q (09:39)
[2024-02-18] MEDS: CALCIUM/VITAMIN D 500 MG/5 MCG (200 I.U.) TABLET PO (09:39)
[2024-02-18] MEDS: ASPIRIN 81 MG CHEWABLE TABLET PO (09:39)
[2024-02-18] MEDS: SODIUM CHLORIDE 0.9% IV 1,000 ML 100 ML IV CONT ×2 (09:40→20:14)
[2024-02-18] MEDS: LORATADINE 10 MG TABLET PO (09:40)
--- NOTE | 2024-02-18 16:03 | P.PNIM_ITS ---
Progress Note: A&P Assessment and Plan (1) C. difficile colitis: Code(s): A04.72 - Enterocolitis due to Clostridium difficile, not specified as recurrent Status: Acute (2) Elevated troponin: Code(s): R79.89 - Other specified abnormal findings of blood chemistry Status: Acute (3) Acute metabolic encephalopathy: Code(s): G93.41 - Metabolic encephalopathy Status: Acute (4) Hypotension due to hypovolemia: Code(s): E86.1 - Hypovolemia Status: Acute Plan C diff colitis Patient presented with diarrhea CT AP showwed pancolitis and stool PCR positive for C diff Continue Fidoxamicin continue rehydration monitor AMS resolved patient alert adn oriented x3 at the time of this encounter monitor hypotension from diarrhea resolving BP stable continue IVF and monitor DVT prophylaxis on Sq lovenox PT/OT Subjective Date/time seen: 02/18/24 16:03 Interval history: Comfortable at bedside Awake and oriented and having conversation comfortably Exam Narrative: Weight 65 kg BMI 28 Objective Data Vital Signs Vital Signs: Vital Signs - 24 hr 02/17/24 19:43 02/17/24 19:47 02/17/24 22:03 Temperature 98.8 F Pulse Rate 108 H 108 H 84 Respiratory Rate 20 15 Blood Pressure 89/58 L 92/58 L 94/48 L Pulse Oximetry 96 100 Oxygen Delivery Room Air 02/17/24 22:11 02/17/24 22:25 02/17/24 23:57 Temperature 100.2 F H Pulse Rate 88 82 Respiratory Rate 15 18 Blood Pressure 96/48 L 97/58 L Pulse Oximetry 96 100 Oxygen Delivery Room Air 02/18/24 00:00 02/18/24 00:00 02/18/24 02:00 Temperature 99.3 F Pulse Rate 87 78 82 Respiratory Rate 16 Blood Pressure 101/43 L Pulse Oximetry 100 Oxygen Delivery 02/18/24 04:00 02/18/24 04:00 02/18/24 06:00 Temperature Pulse Rate 77 73 Respiratory Rate Blood Pressure Pulse Oximetry Oxygen Delivery Room Air 02/18/24 04:00 02/18/24 08:00 02/18/24 08:00 Temperature 99 F Pulse Rate 78 74 Respiratory Rate 16 Blood Pressure 103/49 L Pulse Oximetry 100 98 Oxygen Delivery Room Air 02/18/24 10:00 02/18/24 12:00 02/18/24 14:00 Temperature Pulse Rate 78 70 71 Respiratory Rate Blood Pressure Pulse Oximetry Oxygen Delivery 02/18/24 08:00 02/18/24 12:00 Temperature Pulse Rate 74 70 Respiratory Rate Blood Pressure Pulse Oximetry Oxygen Delivery Room Air Room Air Intake/Output Intake/Output: Intake & Output 02/15/24 02/16/24 02/17/24 02/18/24 23:59 23:59 23:59 23:59 Intake Total 2049 1000 Balance 2049 1000 Meds/Results Medications: Active Medications Generic Name Dose Route Start Last Admin Trade Name Freq PRN Reason Stop Dose Admin Acetaminophen 650 mg 02/17/24 21:28 02/18/24 03:04 Acetaminophen 325 Mg Tablet PO 650 mg Q4H PRN Administration Mild Pain (1-3) or Fever Aspirin 81 mg 02/18/24 08:00 02/18/24 09:39 Aspirin 81 Mg Chewable Tablet PO 81 mg DAILY@0800 KT Administration Calcium Carbonate 500 mg 02/18/24 09:00 02/18/24 09:39 Calcium/Vitamin D 500 Mg/5 Mcg (200 I.U.) Tablet PO 500 mg QAM KT Administration Enoxaparin Sodium 40 mg 02/18/24 09:00 02/18/24 09:39 Enoxaparin 40 Mg/0.4 Ml Syringe SUB-Q 40 mg DAILY KT Administration Fidaxomicin 200 mg 02/18/24 02:30 02/18/24 03:30 Fidaxomicin 200 Mg Tablet PO Not Given Q12HR KT Sodium Chloride 1,000 mls @ 100 mls/hr 02/17/24 21:30 02/18/24 09:40 Normal Saline Iv IV CONT 100 mls/hr .Q10H KT Administration Loratadine 10 mg 02/18/24 09:00 02/18/24 09:40 Loratadine 10 Mg Tablet PO 10 mg QAM KT Administration Montelukast Sodium 10 mg 02/18/24 21:00 Montelukast Sodium 10 Mg Tablet PO HS KT Ondansetron HCl 4 mg 02/17/24 21:28 02/18/24 01:20 Ondansetron Inj 4 Mg/2 Ml Vial IV PUSH 4 mg Q4H PRN Administration Nausea Saccharomyces Boulardii 250 mg 02/18/24 09:00 02/18/24 09:39 Saccharomyces Bofransiscadii 250 Mg Capsule PO 250 mg BID KT Administration Labs Labs: Laboratory Results - last 24 hr 02/17/24 02/18/24 02/18/24 20:22 00:32 01:19 WBC 5.1 RBC 3.67 L Hgb 11.0 L Hct 34.3 L MCV 93.5 MCH 30.0 MCHC 32.1 RDW 13.5 Plt Count 287 MPV 9.7 Immature Gran % (Auto) 0.2 Neut % (Auto) 84.2 H Lymph % (Auto) 7.1 L Stanton % (Auto) 7.9 Eos % (Auto) 0.0 Baso % (Auto) 0.6 Lymph # (Auto) 0.36 L Stanton # (Auto) 0.4 Eos # (Auto) 0.0 Baso # (Auto) 0.0 Abs Immat Gran (auto) 0.01 Absolute Neuts (auto) 4.3 Absolute Nucleated RBC 0.000 Nucleated RBC % 0.0 PT 13.9 INR 1.0 APTT 27.1 Sodium 134 L Potassium 3.4 Chloride 99 Carbon Dioxide 23 Anion Gap 12 BUN 19 H Creatinine 0.80 Estim Creat Clear Calc Not Reportable Estimated GFR > 60 Glucose 92 Lactic Acid 1.6 Calcium 9.2 Total Bilirubin 1.0 AST 28 ALT 14 Alkaline Phosphatase 66 Troponin I 0.074 H* 0.111 H* D C-Reactive Protein 5.4 H Total Protein 7.0 Albumin 4.1 Lipase 19 L C. difficile (PCR) Positive A* 02/18/24 03:30 WBC RBC Hgb Hct MCV MCH MCHC RDW Plt Count MPV Immature Gran % (Auto) Neut % (Auto) Lymph % (Auto) Stanton % (Auto) Eos % (Auto) Baso % (Auto) Lymph # (Auto) Stanton # (Auto) Eos # (Auto) Baso # (Auto) Abs Immat Gran (auto) Absolute Neuts (auto) Absolute Nucleated RBC Nucleated RBC % PT INR APTT Sodium Potassium Chloride Carbon Dioxide Anion Gap BUN Creatinine Estim Creat Clear Calc Estimated GFR Glucose Lactic Acid Calcium Total Bilirubin AST ALT Alkaline Phosphatase Troponin I 0.094 H* C-Reactive Protein Total Protein Albumin Lipase C. difficile (PCR) Quality VTE Prophylaxis VTE prophylaxis: pharmacologic ordered (Lovenox 40 mg subQ daily.)
--- NOTE | 2024-02-18 18:04 | P.CONUR_ITS ---
Assessment and Plan Assessment and plan (1) Abdominal pain: Code(s): R10.9 - Unspecified abdominal pain Status: Acute (2) Left renal mass: Code(s): N28.89 - Other specified disorders of kidney and ureter Status: Acute Assessment and Plan: * Incidentally found, indeterminate 1.2 cm left renal mass * Plan dedicated MRI scan kidneys with without contrast for more definitive evaluation. I would wait several days to do that so as to avoid a 2nd contrast load in a short period of time Urology Consult Note HPI Date Seen: 02/18/24 Requesting Physician: Jenelle Moulton DO Primary Care Provider: Yunior Pryor, Consult Narrative Narrative: Sujatha Glez is a 84 year old female with extensive comorbidities but no known prior significant urological history admitted with abdominal pain and diarrhea. CT imaging incidentally demonstrated an indeterminate 1.2 cm left renal mass. Patient denies significant flank pain or hematuria Review of Systems Review of Systems: All systems reviewed & are unremarkable except as noted in HPI and below PMFSH Past Medical History Medical History Allergic rhinitis Bilateral carpal tunnel syndrome High cholesterol Lymphedema of both lower extremities Osteoarthritis of knees, bilateral Surgical History Surgical History History of cataract extraction History of cholecystectomy History of hysterectomy Family History Family History Mother Diabetes mellitus Heart disease Daughter No problems noted. Father Diabetes mellitus Heart disease Sibling No problems noted. Social History Social History Social History: Code status: Full code (but she states she would not want to live if she did not have quality of life) Surrogate decision maker: Osbaldo (son) Smoking status: Never smoker Second hand tobacco smoke exposure: No Alcohol intake: never Substance use: never Substance use type: does not use Do You Feel Safe in your Home?: Yes Lack of Transportation: No Lack of Food: Never True Current Housing: I Have Housing Concerned About Future Housing: No Difficulty Paying Gas/Electric Bills: No Difficulty Paying for Meds: No Currently Unemployed: No Education: Decline to Answer Difficulty w/ Childcare or Family Care: No Living arrangements: with family Additional living arrangements comments: She lives in apartment with her only son. She has been since approximately 2005. She ambulates with a Rollator. 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 boulardii)) fexofenadine 180 mg tablet 180 mg PO DAILY 02/25/23 02/17/24 History (Cyn Allergy) montelukast 10 mg tablet 10 mg PO HS 02/25/23 02/17/24 History rosuvastatin 10 mg tablet 10 mg PO DAILY 02/25/23 02/17/24 History acetaminophen 325 mg capsule 650 mg PO PRN PRN Pain 01/31/24 02/17/24 History (Tylenol) calcium 600 mg (as carbonate)-vit 1 tablet PO DAILY 01/31/24 02/17/24 History D3 20 mcg (800 unit) chewable tablet (Caltrate plus D) furosemide 20 mg tablet 20 mg PO DAILY 01/31/24 02/17/24 History loperamide 2 mg capsule 2 mg PO PRN PRN Diarrhea #10 caps 02/03/24 02/17/24 Rx amoxicillin 875 mg-potassium 1 tablet PO Q12H #14 tabs 02/17/24 02/17/24 Rx clavulanate 125 mg tablet ondansetron 4 mg disintegrating 4 mg PO Q8H PRN nausea and 02/17/24 02/17/24 Rx tablet vomiting #14 tabs Allergies Allergy/AdvReac Type Severity Reaction Status Date / Time mold Allergy Anaphylaxis Verified 02/17/24 19:42 clarithromycin AdvReac Intermediate Hyperactive Verified 02/17/24 19:42 Vital Signs Vital Signs - 24 hr 02/17/24 19:43 02/17/24 19:47 02/17/24 22:03 Temperature 98.8 F Pulse Rate 108 H 108 H 84 Respiratory Rate 20 15 Blood Pressure 89/58 L 92/58 L 94/48 L Pulse Oximetry 96 100 Oxygen Delivery Room Air 02/17/24 22:11 02/17/24 22:25 02/17/24 23:57 Temperature 100.2 F H Pulse Rate 88 82 Respiratory Rate 15 18 Blood Pressure 96/48 L 97/58 L Pulse Oximetry 96 100 Oxygen Delivery Room Air 02/18/24 00:00 02/18/24 00:00 02/18/24 02:00 Temperature 99.3 F Pulse Rate 87 78 82 Respiratory Rate 16 Blood Pressure 101/43 L Pulse Oximetry 100 Oxygen Delivery 02/18/24 04:00 02/18/24 04:00 02/18/24 06:00 Temperature Pulse Rate 77 73 Respiratory Rate Blood Pressure Pulse Oximetry Oxygen Delivery Room Air 02/18/24 04:00 02/18/24 08:00 02/18/24 08:00 Temperature 99 F Pulse Rate 78 74 Respiratory Rate 16 Blood Pressure 103/49 L Pulse Oximetry 100 98 Oxygen Delivery Room Air 02/18/24 10:00 02/18/24 12:00 02/18/24 14:00 Temperature Pulse Rate 78 70 71 Respiratory Rate Blood Pressure Pulse Oximetry Oxygen Delivery 02/18/24 08:00 02/18/24 12:00 02/18/24 16:00 Temperature 98.6 F Pulse Rate 74 70 73 Respiratory Rate 24 H Blood Pressure 103/52 L Pulse Oximetry 97 Oxygen Delivery Room Air Room Air 02/18/24 12:00 02/18/24 08:00 Temperature 98.4 F 98.7 F Pulse Rate 70 75 Respiratory Rate 20 20 Blood Pressure 98/53 L 106/57 L Pulse Oximetry 97 93 Oxygen Delivery Exam Const: General: no acute distress Resp: Effort & Inspection: normal respiratory effort GI: Inspection: non-distended GI Palp: No abdominal tenderness and No Guarding due to palpation present (GI) Auscultation: normal bowel sounds Results Labs 02/17/24 20:22 02/17/24 20:22 Labs: Short CBC 02/17/24 Range/Units 20:22 WBC 5.1 (4.5-10.0) K/mm3 Hgb 11.0 L (12.0-15.0) g/dL Hct 34.3 L (37.0-47.0) % Plt Count 287 (150-375) k/mm3 BMP 02/17/24 20:22 Sodium 134 L Potassium 3.4 Chloride 99 Carbon Dioxide 23 BUN 19 H Creatinine 0.80 Glucose 92 Calcium 9.2 Cardiac Enzymes 02/17/24 02/18/24 02/18/24 Range/Units 20:22 00:32 03:30 Troponin I 0.074 H* 0.111 H* D 0.094 H* (0.000-0.034) ng/mL Liver Function 02/17/24 Range/Units 20:22 Total Bilirubin 1.0 (0.2-1.3) mg/dL AST 28 (14-36) U/L ALT 14 (6-35) U/L Alkaline Phosphatase 66 (38-126) U/L Albumin 4.1 (3.5-5.1) g/dL
[2024-02-18] MEDS: MONTELUKAST SODIUM 10 MG TABLET PO (20:14)
[2024-02-19 05:17] LABS: Basophils Percent Auto 0.5 % (0.2-1.2); Eosinophils Absolute Auto 0.3 K/mm3 (0-0.3); Eosinophils Percent Auto 7.2 % (0-4.4); Hemoglobin 9.1 g/dL (12.0-15.0); Immature Granulocyte Absolute 0.03 K/mm3 (0.00-0.031); Immature Granulocyte Percent A 0.7 % (0-0.5); Lymphocytes Absolute Auto 0.84 K/mm3 (0.9-3.2); Lymphocytes Percent Auto 19.5 % (18.3-44.2); Mean Corpuscular HGB Conc 31.4 g/dl (32-36); Mean Corpuscular Hemoglobin 29.4 pg (26-34); Mean Corpuscular Volume 93.9 fl (80-100); Mean Platelet Volume 9.8 fl (7.4-10.4); Monocytes Absolute Auto 0.6 K/mm3 (0.1-0.6); Neutrophils Absolute Auto 2.5 K/mm3 (1.3-6.7); Neutrophils Percent Auto 59.1 % (45.5-73.1); Platelet Count Result 215 k/mm3 (150-375); Red Blood Count 3.09 M/mm3 (4.2-5.4); Red Cell Distribution Width 13.5 % (11.5-14.5); White Blood Count 4.3 K/mm3 (4.5-10.0)
[2024-02-19 05:28] LABS: Lactic Acid Reflex 0.7 mmol/L (0.7-2.0)
[2024-02-19 05:33] LABS: Alanine Aminotransferase 14 U/L (6-35); Albumin Level 2.6 g/dL (3.5-5.1); Alkaline Phosphatase 58 U/L (38-126); Anion Gap 7 mmol/L (4-12); Aspartate Amino Transferase 44 U/L (14-36); Bilirubin,Total 0.4 mg/dL (0.2-1.3); Blood Urea Nitrogen 10 mg/dL (7-17); Carbon Dioxide 19 mmol/L (22-30); Chloride 108 mmol/L (98-107); Estimated CRCL calculation 44 ml/min; Estimated Glomerular Filt Rate > 60; Glucose 75 mg/dL (65-110); Magnesium 1.8 mg/dL (1.6-2.3); Potassium 2.7 mmol/L (3.4-5.0); Sodium 134 mmol/L (137-145)
[2024-02-19] MEDS: SODIUM CHLORIDE 0.9% IV 1,000 ML 100 ML IV CONT ×2 (06:18→15:06)
[2024-02-19] MEDS: POTASSIUM CHLORIDE 20 MEQ ER TABLET 80 MEQ PO (07:00)
[2024-02-19 08:00] VITALS: BP 114/66; PULSE 81; RESP 18; TEMP 36.9; O2SAT 98
[2024-02-19] MEDS: LORATADINE 10 MG TABLET PO (09:26)
[2024-02-19] MEDS: SACCHAROMYCES BOULARDII 250 MG CAPSULE PO ×2 (09:26→17:45)
[2024-02-19] MEDS: CALCIUM/VITAMIN D 500 MG/5 MCG (200 I.U.) TABLET PO (09:26)
[2024-02-19] MEDS: FIDAXOMICIN 200 MG TABLET PO ×2 (09:26→21:12)
[2024-02-19] MEDS: ENOXAPARIN 40 MG/0.4 ML SYRINGE SUB-Q (09:26)
[2024-02-19] MEDS: ASPIRIN 81 MG CHEWABLE TABLET PO (09:26)
[2024-02-19 13:16] LABS: Potassium 3.4 mmol/L (3.4-5.0)
[2024-02-19 15:42] VITALS: BP 118/57; PULSE 80; RESP 16; TEMP 36.5; O2SAT 98
--- NOTE | 2024-02-19 16:50 | PM.IMPN ---
Progress Note: A&P Assessment and Plan (1) C. difficile colitis: Code(s): A04.72 - Enterocolitis due to Clostridium difficile, not specified as recurrent Status: Acute (2) Elevated troponin: Code(s): R79.89 - Other specified abnormal findings of blood chemistry Status: Acute (3) Acute metabolic encephalopathy: Code(s): G93.41 - Metabolic encephalopathy Status: Acute (4) Hypotension due to hypovolemia: Code(s): E86.1 - Hypovolemia Status: Acute (5) Left renal mass: Code(s): N28.89 - Other specified disorders of kidney and ureter Status: Acute Plan Plan C diff colitis Patient presented with diarrhea CT AP showed pancolitis and stool PCR positive for C diff Continue Fidoxamicin continue rehydration and encourage oral intake monitor AMS resolved patient alert and oriented x3 at the time of this encounter monitor hypotension from diarrhea resolved BP stable continue IVF and monitor Left renal mass urology recommends MRI Will obtain MRI next tomorrow DVT prophylaxis on Sq lovenox PT/OT Subjective Date/time seen: 02/19/24 16:50 Interval history: Comfortable at bedside patient is feeling better today Urology eval noted and MRI before discharge Review of Systems Review of Systems: Patient is somnolent and had to be woke up several times during the interview. She seemed acutely ill and had difficulty staying awake for the review of systems. Exam Narrative: Weight 65 kg BMI 28 Const: Other: Acutely ill-appearing, otherwise well-developed well-nourished, appears stated age HENMT: Other: Mucous membranes are dry, no oral pharyngeal erythema, no conjunctival pallor, no scleral icterus, head is normocephalic atraumatic, periorbital edema bilaterally Eyes: Other: Please see above Neck: Other: No JVD, no thyromegaly, supple Resp: Other: Clear to auscultation bilaterally, no increased work of breathing Cardio: Other: Regular rate, regular rhythm, 2+ bilateral radial pedal pulses, no JVD, no murmur GI: Other: Diffusely tender, normoactive bowel sounds, no organomegaly, soft, mildly distended Skin: Other: Marked pallor, cool to touch, 2-3 second cap refill, no mottling Neuro: Other: Patient is somnolent difficult to arouse she had be woke several times during the course of my evaluation but was oriented x4, no facial asymmetry, moves all extremities equally, pupils are equal and reactive Extrem: Other: Chronic lower extremity lymphedema, patient does have some swelling of bilateral upper extremities currently as well, moves all extremities equally, no cyanosis, normal muscle tone Psych: Other: Somnolent, difficult to arouse, cooperative, otherwise unable to evaluate Objective Data Vital Signs Vital Signs: Vital Signs - 24 hr 02/18/24 18:00 02/18/24 20:00 02/18/24 20:00 Temperature Pulse Rate 74 75 75 Respiratory Rate 24 H Blood Pressure Pulse Oximetry 97 Oxygen Delivery Room Air 02/18/24 23:47 02/19/24 08:00 02/19/24 13:30 Temperature 97.8 F 98.5 F Pulse Rate 77 81 Respiratory Rate 24 H 18 Blood Pressure 107/46 L 114/66 Pulse Oximetry 96 98 Oxygen Delivery Room Air 02/19/24 13:43 02/19/24 15:42 Temperature 97.7 F Pulse Rate 80 Respiratory Rate 16 Blood Pressure 118/57 L Pulse Oximetry 98 Oxygen Delivery Room Air Intake/Output Intake/Output: Intake & Output 02/16/24 02/17/24 02/18/24 02/19/24 23:59 23:59 23:59 23:59 Intake Total 2049 3019 2480 Balance 2049 3019 2480 Meds/Results Medications: Active Medications Generic Name Dose Route Start Last Admin Trade Name Freq PRN Reason Stop Dose Admin Acetaminophen 650 mg 02/17/24 21:28 02/18/24 03:04 Acetaminophen 325 Mg Tablet PO 650 mg Q4H PRN Administration Mild Pain (1-3) or Fever Aspirin 81 mg 02/18/24 08:00 02/19/24 09:26 Aspirin 81 Mg Chewable Tablet PO 81 mg DAILY@0800 KT Administration Calcium Carbonate 500 mg 02/18/24 09:00 02/19/24 09:26 Calcium/Vitamin D 500 Mg/5 Mcg (200 I.U.) Tablet PO 500 mg QAM KT Administration Enoxaparin Sodium 40 mg 02/18/24 09:00 02/19/24 09:26 Enoxaparin 40 Mg/0.4 Ml Syringe SUB-Q 40 mg DAILY KT Administration Fidaxomicin 200 mg 02/18/24 02:30 02/19/24 09:26 Fidaxomicin 200 Mg Tablet PO 200 mg Q12HR KT Administration Sodium Chloride 1,000 mls @ 100 mls/hr 02/17/24 21:30 02/19/24 15:06 Normal Saline Iv IV CONT 100 mls/hr .Q10H KT Administration Loratadine 10 mg 02/18/24 09:00 02/19/24 09:26 Loratadine 10 Mg Tablet PO 10 mg QAM KT Administration Montelukast Sodium 10 mg 02/18/24 21:00 02/18/24 20:14 Montelukast Sodium 10 Mg Tablet PO 10 mg HS KT Administration Ondansetron HCl 4 mg 02/17/24 21:28 02/18/24 01:20 Ondansetron Inj 4 Mg/2 Ml Vial IV PUSH 4 mg Q4H PRN Administration Nausea Saccharomyces Boulardii 250 mg 02/18/24 09:00 02/19/24 09:26 Saccharomyces Boulardii 250 Mg Capsule PO 250 mg BID KT Administration Labs Labs: Laboratory Results - last 24 hr 02/19/24 02/19/24 05:04 13:05 WBC 4.3 L RBC 3.09 L Hgb 9.1 L Hct 29.0 L MCV 93.9 MCH 29.4 MCHC 31.4 L RDW 13.5 Plt Count 215 MPV 9.8 Immature Gran % (Auto) 0.7 H Neut % (Auto) 59.1 Lymph % (Auto) 19.5 [place] % (Auto) 13.0 H Eos % (Auto) 7.2 H Baso % (Auto) 0.5 Lymph # (Auto) 0.84 L [place] # (Auto) 0.6 Eos # (Auto) 0.3 Baso # (Auto) 0.0 Abs Immat Gran (auto) 0.03 Absolute Neuts (auto) 2.5 Absolute Nucleated RBC 0.000 Nucleated RBC % 0.0 Sodium 134 L Potassium 2.7 L* 3.4 Chloride 108 H Carbon Dioxide 19 L Anion Gap 7 BUN 10 D Creatinine 0.70 Estim Creat Clear Calc 44 Estimated GFR > 60 Glucose 75 Lactic Acid 0.7 Calcium 8.0 L Magnesium 1.8 Total Bilirubin 0.4 AST 44 H ALT 14 Alkaline Phosphatase 58 Total Protein 5.0 L Albumin 2.6 L Quality VTE Prophylaxis VTE prophylaxis: pharmacologic ordered (Lovenox 40 mg subQ daily.)
[2024-02-19 20:26] VITALS: BP 152/66; PULSE 90; RESP 18; TEMP 36.8; O2SAT 100
[2024-02-19] MEDS: MONTELUKAST SODIUM 10 MG TABLET PO (21:12)
[2024-02-20] MEDS: SODIUM CHLORIDE 0.9% IV 1,000 ML 100 ML IV CONT ×3 (00:52→20:29)
[2024-02-20 06:00] VITALS: BP 137/62; PULSE 81; RESP 20; TEMP 36.7; O2SAT 94
[2024-02-20 07:37] LABS: Basophils Percent Auto 0.4 % (0.2-1.2); Eosinophils Absolute Auto 0.3 K/mm3 (0-0.3); Eosinophils Percent Auto 6.2 % (0-4.4); Hematocrit 31.2 % (37.0-47.0); Hemoglobin 9.8 g/dL (12.0-15.0); Immature Granulocyte Absolute 0.13 K/mm3 (0.00-0.031); Immature Granulocyte Percent A 2.5 % (0-0.5); Lymphocytes Absolute Auto 0.83 K/mm3 (0.9-3.2); Mean Corpuscular HGB Conc 31.4 g/dl (32-36); Mean Corpuscular Hemoglobin 29.4 pg (26-34); Mean Corpuscular Volume 93.7 fl (80-100); Monocytes Absolute Auto 0.6 K/mm3 (0.1-0.6); Monocytes Percent Auto 10.6 % (2.6-8.5); Neutrophils Absolute Auto 3.3 K/mm3 (1.3-6.7); Neutrophils Percent Auto 64.3 % (45.5-73.1); Platelet Count Result 259 k/mm3 (150-375); Red Blood Count 3.33 M/mm3 (4.2-5.4); Red Cell Distribution Width 13.3 % (11.5-14.5); White Blood Count 5.2 K/mm3 (4.5-10.0)
[2024-02-20 07:55] LABS: Alanine Aminotransferase 14 U/L (6-35); Albumin Level 2.8 g/dL (3.5-5.1); Alkaline Phosphatase 60 U/L (38-126); Anion Gap 7 mmol/L (4-12); Aspartate Amino Transferase 35 U/L (14-36); Bilirubin,Total 0.4 mg/dL (0.2-1.3); Blood Urea Nitrogen 5 mg/dL (7-17); Calcium 8.1 mg/dL (8.4-10.2); Carbon Dioxide 22 mmol/L (22-30); Chloride 109 mmol/L (98-107); Estimated CRCL calculation 60 ml/min; Estimated Glomerular Filt Rate > 60; Glucose 89 mg/dL (65-110); Magnesium 1.8 mg/dL (1.6-2.3); Potassium 3.4 mmol/L (3.4-5.0); Sodium 138 mmol/L (137-145)
[2024-02-20] MEDS: ENOXAPARIN 40 MG/0.4 ML SYRINGE SUB-Q (08:53)
[2024-02-20] MEDS: FIDAXOMICIN 200 MG TABLET PO ×2 (08:55→20:29)
[2024-02-20] MEDS: CALCIUM/VITAMIN D 500 MG/5 MCG (200 I.U.) TABLET PO (08:55)
[2024-02-20] MEDS: SACCHAROMYCES BOULARDII 250 MG CAPSULE PO ×2 (08:56→17:53)
[2024-02-20] MEDS: LORATADINE 10 MG TABLET PO (08:56)
[2024-02-20] MEDS: ASPIRIN 81 MG CHEWABLE TABLET PO (08:56)
[2024-02-20] MEDS: ACETAMINOPHEN 325 MG TABLET 650 MG PO ×3 (08:56→22:43)
--- NOTE | 2024-02-20 11:50 | PM.IMPN ---
Progress Note: A&P Assessment and Plan (1) C. difficile colitis: Code(s): A04.72 - Enterocolitis due to Clostridium difficile, not specified as recurrent Status: Acute (2) Elevated troponin: Code(s): R79.89 - Other specified abnormal findings of blood chemistry Status: Acute (3) Acute metabolic encephalopathy: Code(s): G93.41 - Metabolic encephalopathy Status: Acute (4) Hypotension due to hypovolemia: Code(s): E86.1 - Hypovolemia Status: Acute (5) Left renal mass: Code(s): N28.89 - Other specified disorders of kidney and ureter Status: Acute Plan Plan C diff colitis Patient presented with diarrhea CT AP showed pancolitis and stool PCR positive for C diff Continue Fidoxamicin encourage oral intake Diarrhea resolving monitor AMS resolved patient alert and oriented x3 at the time of this encounter monitor hypotension from diarrhea resolved BP stable continue IVF and monitor Left renal mass urology recommends MRI MRI pendign DVT prophylaxis on Sq lovenox PT/OT Subjective Date/time seen: 02/20/24 11:50 Interval history: Comfortable at bedside No diarrhea yet this morning as at the time of encounter Awaiting MRI and PT recs Review of Systems Review of Systems: Patient is somnolent and had to be woke up several times during the interview. She seemed acutely ill and had difficulty staying awake for the review of systems. Exam Narrative: Weight 65 kg BMI 28 Const: Other: Acutely ill-appearing, otherwise well-developed well-nourished, appears stated age HENMT: Other: Mucous membranes are dry, no oral pharyngeal erythema, no conjunctival pallor, no scleral icterus, head is normocephalic atraumatic, periorbital edema bilaterally Eyes: Other: Please see above Neck: Other: No JVD, no thyromegaly, supple Resp: Other: Clear to auscultation bilaterally, no increased work of breathing Cardio: Other: Regular rate, regular rhythm, 2+ bilateral radial pedal pulses, no JVD, no murmur GI: Other: Diffusely tender, normoactive bowel sounds, no organomegaly, soft, mildly distended Skin: Other: Marked pallor, cool to touch, 2-3 second cap refill, no mottling Neuro: Other: Patient is somnolent difficult to arouse she had be woke several times during the course of my evaluation but was oriented x4, no facial asymmetry, moves all extremities equally, pupils are equal and reactive Extrem: Other: Chronic lower extremity lymphedema, patient does have some swelling of bilateral upper extremities currently as well, moves all extremities equally, no cyanosis, normal muscle tone Psych: Other: Somnolent, difficult to arouse, cooperative, otherwise unable to evaluate Objective Data Vital Signs Vital Signs: Vital Signs - 24 hr 02/19/24 13:30 02/19/24 13:43 02/19/24 15:42 Temperature 97.7 F Pulse Rate 80 Respiratory Rate 16 Blood Pressure 118/57 L Pulse Oximetry 98 Oxygen Delivery Room Air Room Air 02/19/24 20:26 02/19/24 20:00 02/20/24 06:00 Temperature 98.3 F 98.0 F Pulse Rate 90 81 Respiratory Rate 18 20 Blood Pressure 152/66 H 137/62 Pulse Oximetry 100 94 Oxygen Delivery Room Air 02/20/24 09:00 Temperature Pulse Rate Respiratory Rate Blood Pressure Pulse Oximetry Oxygen Delivery Room Air Intake/Output Intake/Output: Intake & Output 02/17/24 02/18/24 02/19/24 02/20/24 23:59 23:59 23:59 23:59 Intake Total 2049 302 2717 2456.7 Balance 2049 302 2717 2456.7 Meds/Results Medications: Active Medications Generic Name Dose Route Start Last Admin Trade Name Freq PRN Reason Stop Dose Admin Acetaminophen 650 mg 02/17/24 21:28 02/20/24 08:56 Acetaminophen 325 Mg Tablet PO 650 mg Q4H PRN Administration Mild Pain (1-3) or Fever Aspirin 81 mg 02/18/24 08:00 02/20/24 08:56 Aspirin 81 Mg Chewable Tablet PO 81 mg DAILY@0800 KT Administration Calcium Carbonate 500 mg 02/18/24 09:00 02/20/24 08:55 Calcium/Vitamin D 500 Mg/5 Mcg (200 I.U.) Tablet PO 500 mg QAM KT Administration Enoxaparin Sodium 40 mg 02/18/24 09:00 02/20/24 08:53 Enoxaparin 40 Mg/0.4 Ml Syringe SUB-Q 40 mg DAILY KT Administration Fidaxomicin 200 mg 02/18/24 02:30 02/20/24 08:55 Fidaxomicin 200 Mg Tablet PO 200 mg Q12HR KT Administration Sodium Chloride 1,000 mls @ 100 mls/hr 02/17/24 21:30 02/20/24 10:52 Normal Saline Iv IV CONT 100 mls/hr .Q10H KT Administration Loratadine 10 mg 02/18/24 09:00 02/20/24 08:56 Loratadine 10 Mg Tablet PO 10 mg QAM KT Administration Montelukast Sodium 10 mg 02/18/24 21:00 02/19/24 21:12 Montelukast Sodium 10 Mg Tablet PO 10 mg HS KT Administration Ondansetron HCl 4 mg 02/17/24 21:28 02/18/24 01:20 Ondansetron Inj 4 Mg/2 Ml Vial IV PUSH 4 mg Q4H PRN Administration Nausea Saccharomyces Boulardii 250 mg 02/18/24 09:00 02/20/24 08:56 Saccharomyces Boulardii 250 Mg Capsule PO 250 mg BID KT Administration Labs Labs: Laboratory Results - last 24 hr 02/19/24 02/20/24 13:05 07:13 WBC 5.2 RBC 3.33 L Hgb 9.8 L Hct 31.2 L MCV 93.7 MCH 29.4 MCHC 31.4 L RDW 13.3 Plt Count 259 MPV 10.0 Immature Gran % (Auto) 2.5 H Neut % (Auto) 64.3 Lymph % (Auto) 16.0 L [place] % (Auto) 10.6 H Eos % (Auto) 6.2 H Baso % (Auto) 0.4 Lymph # (Auto) 0.83 L [place] # (Auto) 0.6 Eos # (Auto) 0.3 Baso # (Auto) 0.0 Abs Immat Gran (auto) 0.13 H Absolute Neuts (auto) 3.3 Absolute Nucleated RBC 0.000 Nucleated RBC % 0.0 Sodium 138 Potassium 3.4 3.4 Chloride 109 H Carbon Dioxide 22 Anion Gap 7 BUN 5 L D Creatinine 0.50 L Estim Creat Clear Calc 60 Estimated GFR > 60 Glucose 89 Calcium 8.1 L Magnesium 1.8 Total Bilirubin 0.4 AST 35 ALT 14 Alkaline Phosphatase 60 Total Protein 6.0 L Albumin 2.8 L Quality VTE Prophylaxis VTE prophylaxis: pharmacologic ordered (Lovenox 40 mg subQ daily.)
[2024-02-20 15:32] VITALS: TEMP 36.7
[2024-02-20 15:40] VITALS: BP 139/65; PULSE 88; RESP 20; TEMP 36.8; O2SAT 99
[2024-02-20] MEDS: MONTELUKAST SODIUM 10 MG TABLET PO (20:29)
[2024-02-20 21:30] VITALS: BP 133/58; PULSE 80; RESP 16; TEMP 36.8; O2SAT 98
--- NOTE | 2024-02-21 01:39 | PC.NURSE ---
Daylight Savings Time For Daylight Savings Time Ending in the Fall - Clocks are moved back. For Daylight Savings Time Beginning in the Spring - Clocks are moved ahead. For [facility], the time of change occurs at 0200 hrs. Time is taken from the artillery or naval gunfire observer. This entry on the patient's chart recognizes the change in time reflected during documentation. Example: 2 entries for vital signs may be charted for 0200 hrs.
[2024-02-21] MEDS: SODIUM CHLORIDE 0.9% IV 1,000 ML 100 ML IV CONT ×2 (03:47→19:30)
[2024-02-21 05:14] VITALS: BP 136/64; PULSE 70; RESP 14; TEMP 36.6; O2SAT 98
[2024-02-21 07:19] LABS: Basophils Percent Auto 0.4 % (0.2-1.2); Eosinophils Absolute Auto 0.4 K/mm3 (0-0.3); Eosinophils Percent Auto 6.9 % (0-4.4); Hematocrit 29.9 % (37.0-47.0); Hemoglobin 9.7 g/dL (12.0-15.0); Immature Granulocyte Absolute 0.14 K/mm3 (0.00-0.031); Immature Granulocyte Percent A 2.5 % (0-0.5); Lymphocytes Absolute Auto 1.03 K/mm3 (0.9-3.2); Lymphocytes Percent Auto 18.3 % (18.3-44.2); Mean Corpuscular HGB Conc 32.4 g/dl (32-36); Mean Corpuscular Hemoglobin 29.6 pg (26-34); Mean Corpuscular Volume 91.2 fl (80-100); Mean Platelet Volume 9.3 fl (7.4-10.4); Monocytes Absolute Auto 0.5 K/mm3 (0.1-0.6); Monocytes Percent Auto 9.6 % (2.6-8.5); Neutrophils Absolute Auto 3.5 K/mm3 (1.3-6.7); Neutrophils Percent Auto 62.3 % (45.5-73.1); Platelet Count Result 257 k/mm3 (150-375); Red Blood Count 3.28 M/mm3 (4.2-5.4); Red Cell Distribution Width 13.3 % (11.5-14.5); White Blood Count 5.6 K/mm3 (4.5-10.0)
[2024-02-21] MEDS: SACCHAROMYCES BOULARDII 250 MG CAPSULE PO ×2 (08:12→17:51)
[2024-02-21] MEDS: FIDAXOMICIN 200 MG TABLET PO ×2 (08:12→19:53)
[2024-02-21] MEDS: LORATADINE 10 MG TABLET PO (08:12)
[2024-02-21] MEDS: ASPIRIN 81 MG CHEWABLE TABLET PO (08:12)
[2024-02-21] MEDS: CALCIUM/VITAMIN D 500 MG/5 MCG (200 I.U.) TABLET PO (08:12)
[2024-02-21 08:26] LABS: Alanine Aminotransferase 12 U/L (6-35); Albumin Level 2.7 g/dL (3.5-5.1); Alkaline Phosphatase 66 U/L (38-126); Anion Gap 6 mmol/L (4-12); Aspartate Amino Transferase 26 U/L (14-36); Bilirubin,Total 0.4 mg/dL (0.2-1.3); Blood Urea Nitrogen 2 mg/dL (7-17); Calcium 8.2 mg/dL (8.4-10.2); Carbon Dioxide 23 mmol/L (22-30); Chloride 109 mmol/L (98-107); Estimated CRCL calculation 67 ml/min; Estimated Glomerular Filt Rate > 60; Glucose 85 mg/dL (65-110); Magnesium 1.7 mg/dL (1.6-2.3); Sodium 138 mmol/L (137-145)
[2024-02-21 14:00] VITALS: BP 145/67; PULSE 80; RESP 20; TEMP 36.1; O2SAT 96
--- NOTE | 2024-02-21 14:37 | P.PNIM_ITS ---
Progress Note: A&P Assessment and Plan (1) C. difficile colitis: Code(s): A04.72 - Enterocolitis due to Clostridium difficile, not specified as recurrent Status: Acute (2) Elevated troponin: Code(s): R79.89 - Other specified abnormal findings of blood chemistry Status: Acute (3) Acute metabolic encephalopathy: Code(s): G93.41 - Metabolic encephalopathy Status: Acute (4) Hypotension due to hypovolemia: Code(s): E86.1 - Hypovolemia Status: Acute (5) Left renal mass: Code(s): N28.89 - Other specified disorders of kidney and ureter Status: Acute Plan Plan C diff colitis Patient presented with diarrhea CT AP showed pancolitis and stool PCR positive for C diff Day 4 Fidoxamicin encourage oral intake Diarrhea resolved monitor AMS resolved patient alert and oriented x3 at the time of this encounter monitor hypotension from diarrhea resolved BP stable continue IVF and monitor Left renal mass urology recommends MRI MRI report pending DVT prophylaxis on Sq lovenox PT/OT Subjective Date/time seen: 02/21/24 14:37 Interval history: Comfortable at bedside Patient noted no diarrhea since Thursday Awaiting MRI and PT recs [facility] Review of Systems Review of Systems: Patient is somnolent and had to be woke up several times during the interview. She seemed acutely ill and had difficulty staying awake for the review of systems. Exam Narrative: Weight 65 kg BMI 28 Const: Other: Acutely ill-appearing, otherwise well-developed well-nourished, appears stated age HENMT: Other: Mucous membranes are dry, no oral pharyngeal erythema, no conjunctival pallor, no scleral icterus, head is normocephalic atraumatic, periorbital edema bilaterally Eyes: Other: Please see above Neck: Other: No JVD, no thyromegaly, supple Resp: Other: Clear to auscultation bilaterally, no increased work of breathing Cardio: Other: Regular rate, regular rhythm, 2+ bilateral radial pedal pulses, no JVD, no murmur GI: Other: Diffusely tender, normoactive bowel sounds, no organomegaly, soft, mildly distended Skin: Other: Marked pallor, cool to touch, 2-3 second cap refill, no mottling Neuro: Other: Patient is somnolent difficult to arouse she had be woke several times during the course of my evaluation but was oriented x4, no facial asymmetry, moves all extremities equally, pupils are equal and reactive Extrem: Other: Chronic lower extremity lymphedema, patient does have some swelling of bilateral upper extremities currently as well, moves all extremities equally, no cyanosis, normal muscle tone Psych: Other: Somnolent, difficult to arouse, cooperative, otherwise unable to evaluate Objective Data Vital Signs Vital Signs: Vital Signs - 24 hr 02/20/24 15:40 02/20/24 21:30 02/20/24 21:15 Temperature 98.2 F 98.2 F Pulse Rate 88 80 Respiratory Rate 20 16 Blood Pressure 139/65 133/58 L Pulse Oximetry 99 98 Oxygen Delivery Room Air 02/21/24 05:14 02/21/24 08:29 Temperature 97.8 F Pulse Rate 70 Respiratory Rate 14 Blood Pressure 136/64 Pulse Oximetry 98 Oxygen Delivery Room Air Intake/Output Intake/Output: Intake & Output 02/18/24 02/19/24 02/20/24 02/21/24 23:59 23:59 23:59 22:59 Intake Total 3020 2717 3748.4 1290 Balance 3020 2717 3748.4 1290 Meds/Results Medications: Active Medications Generic Name Dose Route Start Last Admin Trade Name Freq PRN Reason Stop Dose Admin Acetaminophen 650 mg 02/17/24 21:28 02/20/24 22:43 Acetaminophen 325 Mg Tablet PO 650 mg Q4H PRN Administration Mild Pain (1-3) or Fever Aspirin 81 mg 02/18/24 08:00 02/21/24 08:12 Aspirin 81 Mg Chewable Tablet PO 81 mg DAILY@0800 KT Administration Calcium Carbonate 500 mg 02/18/24 09:00 02/21/24 08:12 Calcium/Vitamin D 500 Mg/5 Mcg (200 I.U.) Tablet PO 500 mg QAM KT Administration Enoxaparin Sodium 40 mg 02/18/24 09:00 02/20/24 08:53 Enoxaparin 40 Mg/0.4 Ml Syringe SUB-Q 40 mg DAILY KT Administration Fidaxomicin 200 mg 02/18/24 02:30 02/21/24 08:12 Fidaxomicin 200 Mg Tablet PO 200 mg Q12HR KT Administration Sodium Chloride 1,000 mls @ 100 mls/hr 02/17/24 21:30 02/21/24 03:47 Normal Saline Iv IV CONT 100 mls/hr .Q10H KT Administration Loratadine 10 mg 02/18/24 09:00 02/21/24 08:12 Loratadine 10 Mg Tablet PO 10 mg QAM KT Administration Montelukast Sodium 10 mg 02/18/24 21:00 02/20/24 20:29 Montelukast Sodium 10 Mg Tablet PO 10 mg HS KT Administration Ondansetron HCl 4 mg 02/17/24 21:28 02/18/24 01:20 Ondansetron Inj 4 Mg/2 Ml Vial IV PUSH 4 mg Q4H PRN Administration Nausea Saccharomyces Boulardii 250 mg 02/18/24 09:00 02/21/24 08:12 Saccharomyces Boulardii 250 Mg Capsule PO 250 mg BID KT Administration Labs Labs: Laboratory Results - last 24 hr 02/21/24 07:09 WBC 5.6 RBC 3.28 L Hgb 9.7 L Hct 29.9 L MCV 91.2 MCH 29.6 MCHC 32.4 RDW 13.3 Plt Count 257 MPV 9.3 Immature Gran % (Auto) 2.5 H Neut % (Auto) 62.3 Lymph % (Auto) 18.3 [place] % (Auto) 9.6 H Eos % (Auto) 6.9 H Baso % (Auto) 0.4 Lymph # (Auto) 1.03 [place] # (Auto) 0.5 Eos # (Auto) 0.4 H Baso # (Auto) 0.0 Abs Immat Gran (auto) 0.14 H Absolute Neuts (auto) 3.5 Absolute Nucleated RBC 0.000 Nucleated RBC % 0.0 Sodium 138 Potassium 3.0 L Chloride 109 H Carbon Dioxide 23 Anion Gap 6 BUN 2 L Creatinine 0.50 L Estim Creat Clear Calc 67 Estimated GFR > 60 Glucose 85 Calcium 8.2 L Magnesium 1.7 Total Bilirubin 0.4 AST 26 ALT 12 Alkaline Phosphatase 66 Total Protein 5.0 L Albumin 2.7 L Quality VTE Prophylaxis VTE prophylaxis: pharmacologic ordered (Lovenox 40 mg subQ daily.)
[2024-02-21] MEDS: ACETAMINOPHEN 325 MG TABLET 650 MG PO ×2 (17:51→21:50)
[2024-02-21] MEDS: MONTELUKAST SODIUM 10 MG TABLET PO (19:53)
[2024-02-21 21:13] VITALS: BP 136/63; PULSE 83; RESP 20; TEMP 36.9; O2SAT 96
--- NOTE | 2024-02-22 | ECHO_ITS ---
Patient Info Name: Sujatha Glez Age: 84 years : 1940 Gender: Female Ht: 60 in Wt: 177 lbs BSA: 1.88 m2 HR: 74 bpm BP: 139 / 64 mmHg Technical Quality: Fair Exam Date: 02/22/2024 3:36 PM Exam Location: Echo Lab Patient Status: Inpatient Admit Date: 02/22/2024 Staff Ordering Physician: Feroz Kidd MD Pbx Teacher: Jany Waldron RDCS Attending Provider: Jenelle Moulton DO Exam Type: CA echo doppler color flow Study Info Indications I50.20 - Unspecified systolic (congestive) heart failure Complete two-dimensional, color flow and Doppler transthoracic echocardiogram is performed. Summary 1. Left ventricular chamber dimension is normal. 2. Left ventricular systolic function is normal, estimated at 55-60%. 3. There is mildly increased left ventricular wall thickness. 4. The left ventricular diastolic function is grade I diastolic dysfunction. 5. Right ventricular systolic function is normal. 6. Left atrial chamber dimension is mildly enlarged. 7. There is mild mitral valve regurgitation. 8. There is small pericardial effusion. Left Ventricle Left ventricular chamber dimension is normal. Left ventricular systolic function is normal, estimated at 55-60%. There is mildly increased left ventricular wall thickness. The left ventricular diastolic function is grade I diastolic dysfunction. Right Ventricle Right ventricular chamber dimension is normal. Right ventricular systolic function is normal. Left Atria Left atrial chamber dimension is mildly enlarged. Right Atria Right atrial chamber dimension is normal. Atrial Septum Intact interatrial septum visualized by color flow imaging. Aortic Valve The aortic valve is probable trileaflet. There is no aortic valve stenosis. There is trace aortic valve regurgitation. Pulmonic Valve The pulmonic valve is not well visualized. Mitral Valve There is mild mitral valve regurgitation. Tricuspid Valve There is trace tricuspid valve regurgitation. Pericardium/Pleural There is small pericardial effusion. Inferior Vena Cava Normal inferior vena cava with >50% collapse upon inspiration consistent with normal right atrial pressure, 3 mmHg. Aorta The aortic root size at the sinus of Valsalva is normal. Left Ventricular Outflow Tract Name Value Normal LVOT 2D LVOT Diameter 1.9 cm LVOT Doppler LVOT Peak Gradient 5 mmHg LVOT Mean Gradient 2 mmHg LVOT VTI 18 cm LVOT VTI/AV VTI Ratio 0.8 LVOT Stroke Volume 49 ml LVOT CO 3.9 l/min LVOT CI 2.1 l/min/m2 Pulmonic Valve Name Value Normal PV Doppler PV Peak Gradient 3 mmHg Mitral Valve Name Value Normal MV Doppler MV Decel [place] 395 cm/s2 MV PHT 45 ms MV Area (PHT) 4.9 cm2 4.0-5.0 MV Diastolic Function MV E Peak Velocity 61 cm/s MV A Peak Velocity 108 cm/s MV E/A 0.6 MV Decel Time 154 ms Tricuspid Valve Name Value Normal TV Regurgitation Doppler TR Peak Velocity 197 cm/s TR Peak Gradient 16 mmHg Estimated PAP/RSVP RA Pressure 3 mmHg <=5 PA Systolic Pressure 19 mmHg <36 RV Systolic Pressure 19 mmHg <36 Aorta Name Value Normal Ascending Aorta Ao Root Diameter (MM) 2.4 cm Ao Root Diam Index (MM) 1.3 cm/m2 Aortic Valve Name Value Normal AV Doppler AV Peak Velocity 131 cm/s AV Peak Gradient 7 mmHg AV Mean Gradient 3 mmHg AV VTI 23 cm AV Area (Cont Eq VTI) 2.1 cm2 >=3.0 AV Area (Cont Eq Law) 2.4 cm2 AV Regurgitation 2D LVOT Area 2.8 cm2 Ventricles Name Value Normal LV Dimensions 2D/MM IVS Diastolic Thickness (2D) 0.9 cm 0.6-1.0 IVS Diastole Thickness (MM) 0.9 cm 0.6-0.9 LVID Diastole (2D) 4.7 cm 3.8-5.2 LVID Diastole (MM) 5.1 cm 3.8-5.2 LVIW Diastolic Thickness (2D) 0.9 cm 0.6-0.9 LVIW Diastolic Thickness (MM) 0.9 cm 0.6-0.9 LVID Systole (2D) 2.8 cm 2.2-3.5 LVID Systole (MM) 3.4 cm 2.2-3.5 LVOT Diameter 1.9 cm LV Mass (2D Cubed) 139.06 g 67.00-162.00 LV Mass Index (2D Cubed) 74 g/m2 43-95 Relative Wall Thickness (2D) 0.38 LV Mass (MM Cubed) 162.36 g 67.00-162.00 LV Mass Index (MM Cubed) 86 g/m2 43-95 Relative Wall Thickness (MM) 0.36 LV Fractional Shortening/Ejection Fraction 2D/MM LV Fractional Shortening (2D) 39 % 27-45 LV Fractional Shortening (MM) 32 % 27-45 LV EF (MM Teicholz) 60 % 54-74 LV EF (2D Teicholz) 70 % 54-74 LV Diastolic Volume (4C MOD) 58 ml LV EF (4C MOD) 69 % LV Diastolic Volume (2C MOD) 43 ml LV EF (2C MOD) 76 % LV Diastolic Volume (BP MOD) 50 ml 46-106 LV Diastolic Volume Index (BP MOD) 26 ml/m2 29-61 LV Systolic Volume (BP MOD) 15 ml 14-42 LV Systolic Volume Index (BP MOD) 8 ml/m2 8-24 LV EF (BP MOD) 71 % 54-74 LV Diastolic Length (4C) 6.2 cm LV Systolic Length (4C) 5.4 cm LV Stroke Volume (4C MOD) 40 ml Atria Name Value Normal LA Dimensions LA Dimension (MM) 4.6 cm 2.7-3.8 LA Volume (4C A-L) 37 ml LA Volume (BP A-L) 43 ml RA Dimensions RA Area (4C) 9.5 cm2 <=18.0 Report Signatures
[2024-02-22 05:27] VITALS: BP 139/64; PULSE 74; RESP 18; TEMP 36.6; O2SAT 97
[2024-02-22] MEDS: ACETAMINOPHEN 325 MG TABLET 650 MG PO ×3 (05:57→20:18)
[2024-02-22] MEDS: ASPIRIN 81 MG CHEWABLE TABLET PO (08:40)
[2024-02-22] MEDS: SACCHAROMYCES BOULARDII 250 MG CAPSULE PO ×2 (08:40→17:24)
[2024-02-22] MEDS: LORATADINE 10 MG TABLET PO (08:40)
[2024-02-22] MEDS: FIDAXOMICIN 200 MG TABLET PO ×2 (08:40→20:18)
[2024-02-22] MEDS: CALCIUM/VITAMIN D 500 MG/5 MCG (200 I.U.) TABLET PO (08:40)
[2024-02-22] MEDS: ENOXAPARIN 40 MG/0.4 ML SYRINGE SUB-Q (08:41)
[2024-02-22 09:26] LABS: Iron 18 ug/dL (37-170)
[2024-02-22 09:35] LABS: Percent Iron Saturation 7 % (20-50)
--- NOTE | 2024-02-22 11:46 | P.PNIM_ITS ---
Progress Note: A&P Assessment and Plan (1) C. difficile colitis: Code(s): A04.72 - Enterocolitis due to Clostridium difficile, not specified as recurrent Status: Acute (2) Elevated troponin: Code(s): R79.89 - Other specified abnormal findings of blood chemistry Status: Acute (3) Acute metabolic encephalopathy: Code(s): G93.41 - Metabolic encephalopathy Status: Acute (4) Hypotension due to hypovolemia: Code(s): E86.1 - Hypovolemia Status: Acute (5) Left renal mass: Code(s): N28.89 - Other specified disorders of kidney and ureter Status: Acute Plan Plan C diff colitis Patient presented with diarrhea CT AP showed pancolitis and stool PCR positive for C diff Day 5 Fidoxamicin encourage oral intake Diarrhea resolved monitor Fluid overload likely from IVF Give one dose of Lasix restart home lasix ECHO pending 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 MRI showed changes consistent with RCC also showed a sarcoma urology following Oncology consulted IR consulted AMS resolved patient alert and oriented x3 at the time of this encounter monitor hypotension from diarrhea resolved BP stable s/p IVf DVT prophylaxis on Sq lovenox PT/OT Subjective Date/time seen: 02/22/24 11:46 Interval history: Comfortable at bedside Patient noted no diarrhea since Thursday, stopped IVF 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 IR, and Oncology consulted Urology following Review of Systems Review of Systems: alert and oriented was having breakfast at the time of this encounter Exam Narrative: Weight 65 kg BMI 28 Const: Other: Acutely ill-appearing, otherwise well-developed well-nourished, appears stated age HENMT: Other: Mucous membranes are dry, no oral pharyngeal erythema, no conjunctival pallor, no scleral icterus, head is normocephalic atraumatic, periorbital edema bilaterally Eyes: Other: Please see above Neck: Other: No JVD, no thyromegaly, supple Resp: Other: Clear to auscultation bilaterally, no increased work of breathing Cardio: Other: Regular rate, regular rhythm, 2+ bilateral radial pedal pulses, no JVD, no mu rmur GI: Other: Diffusely tender, normoactive bowel sounds, no organomegaly, soft, mildly distended Skin: Other: Marked pallor, cool to touch, 2-3 second cap refill, no mottling Neuro: Other: Patient is somnolent difficult to arouse she had be woke several times during the course of my evaluation but was oriented x4, no facial asymmetry, moves all extremities equally, pupils are equal and reactive Extrem: Other: Chronic lower extremity lymphedema, patient does have some swelling of bilateral upper extremities currently as well, moves all extremities equally, no cyanosis, normal muscle tone Psych: Other: Somnolent, difficult to arouse, cooperative, otherwise unable to evaluate Objective Data Vital Signs Vital Signs: Vital Signs - 24 hr 02/21/24 14:00 02/21/24 21:13 02/21/24 20:00 Temperature 97.0 F L 98.5 F Pulse Rate 80 83 Respiratory Rate 20 20 Blood Pressure 145/67 H 136/63 Pulse Oximetry 96 96 Oxygen Delivery Room Air 02/22/24 05:27 02/22/24 08:00 Temperature 97.8 F Pulse Rate 74 Respiratory Rate 18 Blood Pressure 139/64 Pulse Oximetry 97 Oxygen Delivery Room Air Intake/Output Intake/Output: Intake & Output 02/20/24 02/21/24 02/21/24 02/22/24 00:59 00:59 23:59 23:59 Intake Total 2200 Output Total 450 Balance 1750 Meds/Results Medications: Active Medications Generic Name Dose Route Start Last Admin Trade Name Parthq PRN Reason Stop Dose Admin Acetaminophen 650 mg 02/17/24 21:28 02/22/24 05:57 Acetaminophen 325 Mg Tablet PO 650 mg Q4H PRN Administration Mild Pain (1-3) or Fever Aspirin 81 mg 02/18/24 08:00 02/22/24 08:40 Aspirin 81 Mg Chewable Tablet PO 81 mg DAILY@0800 [facility] Administration Calcium Carbonate 500 mg 02/18/24 09:00 02/22/24 08:40 Calcium/Vitamin D 500 Mg/5 Mcg (200 I.U.) Tablet PO 500 mg QAM KT Administration Enoxaparin Sodium 40 mg 02/18/24 09:00 02/22/24 08:41 Enoxaparin 40 Mg/0.4 Ml Syringe SUB-Q 40 mg DAILY KT Administration Fidaxomicin 200 mg 02/18/24 02:30 02/22/24 08:40 Fidaxomicin 200 Mg Tablet PO 200 mg Q12HR KT Administration Loratadine 10 mg 02/18/24 09:00 02/22/24 08:40 Loratadine 10 Mg Tablet PO 10 mg QAM KT Administration Montelukast Sodium 10 mg 02/18/24 21:00 02/21/24 19:53 Montelukast Sodium 10 Mg Tablet PO 10 mg HS KT Administration Ondansetron HCl 4 mg 02/17/24 21:28 02/18/24 01:20 Ondansetron Inj 4 Mg/2 Ml Vial IV PUSH 4 mg Q4H PRN Administration Nausea Ondansetron HCl 4 mg 02/21/24 14:37 Ondansetron Inj 4 Mg/2 Ml Vial IV PUSH Q6H PRN Nausea And Vomiting Saccharomyces Boulardii 250 mg 02/18/24 09:00 02/22/24 08:40 Saccharomyces Boulardii 250 Mg Capsule PO 250 mg BID KT Administration Radiology Results: ITS Impressions Abdomen MRI 02/21/24 14:33 IMPRESSION: 1. 1.4 cm T2 hyperintense heterogeneously enhancing lesion at the upper pole the left kidney consistent with renal cell carcinoma. 2. 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 Labs Labs: Laboratory Results - last 24 hr 02/22/24 08:33 Iron 18 L TIBC 245 L % Saturation 7 L Ferritin 25.10 Quality VTE Prophylaxis VTE prophylaxis: pharmacologic ordered (Lovenox 40 mg subQ daily.)
[2024-02-22 14:00] VITALS: BP 140/70; PULSE 90; RESP 20; TEMP 37.3; O2SAT 98
[2024-02-22] MEDS: IRON SUCROSE COMPLEX 400 MG, IRON SUCROSE COMPLEX 100 MG in SODIUM CHLORIDE 0.9% IV 250 ML 78.57 MG IVPB (14:04)
[2024-02-22] MEDS: FUROSEMIDE INJ 40 MG/4 ML VIAL 20 MG IV PUSH (14:04)
[2024-02-22 14:49] LABS: IFOB Positive Control Positive; Immunochemical Fecal Occult Bl Positive (N)
[2024-02-22 20:15] VITALS: BP 141/66; PULSE 83; RESP 16; TEMP 36.9; O2SAT 96
[2024-02-22] MEDS: MONTELUKAST SODIUM 10 MG TABLET PO (20:18)
--- NOTE | 2024-02-22 20:34 | PDONCCONNOTE ---
Recommendations Left renal mass- Patient with incidental finding of a left renal mass on a CT scan of abdomen and pelvis performed on 02/17/24 for diarrhea. Noted was 1.2 cm left renal mass, indeterminate. MRI was recommended. Urology was consulted and also recommended MRI of abdomen. Patient underwent Abdominal MRI on 02/21/24 which showed a 1.4 cm T2 hyperintense heterogeneously enhancing lesion at the upper pole the left kidney consistent with renal cell carcinoma. Isolated renal mass should be followed with urology. I believe she would be monitored with serial MRI as left renal mass is only 1.4 cm and patient is elderly with poor performance status to undergo any kind of surgery or treatment. Patients should have a outpatient follow-up with Urology for management and surveillance of left renal mass. Oncology has no role in this setting. Impression This is a 84-year-old female with incidental finding of left renal mass. [facility] - Date/Time Seen 02/22/24 20:34 - History of Present Illness Patient is a 84-year-old female with a past medical history chronic lower extremity lymphedema, allergic rhinitis and hyperlipidemia who presented to the ER on 02/17/24 with worsening diarrhea. The patient had been admitted to the hospital 01/30/2024 through 02/03/2024 for rodgers colitis noted on CT scan. At that time C diff testing was negative and stool cultures were negative. The patient was started on Imodium when stool specimens were negative for infectious source. Patient was placed on empiric antibiotic therapy with Rocephin and Flagyl. She was discharged home on cefdinir and Flagyl. However, at home she noted persistent worsening diarrhea since discharge. The patient was subsequently placed on fluids. Repeat C diff. testing on stool was sent and is found to be positive for C diff. patient was started on Dificid. A CT scan of abdomen and pelvis performed on 02/17/24 showed pancolitis, most likely infectious/inflammatory nature, similar to prior exam. Also noted was 1.2 cm left renal mass, indeterminate. MRI was recommended. Urology was consulted and also recommended MRI of abdomen. Patient underwent Abdominal MRI on 02/21/24 which showed a 1.4 cm T2 hyperintense heterogeneously enhancing lesion at the upper pole the left kidney consistent with renal cell carcinoma. Oncology is consulted for further management of left renal mass. - Medical History Medical History (Last Reviewed 02/18/24 @ 20:15 by Jenelle Moulton DO) Allergic rhinitis Bilateral carpal tunnel syndrome High cholesterol Lymphedema of both lower extremities Osteoarthritis of knees, bilateral - Surgical History Surgical History (Last Reviewed 02/18/24 @ 09:13 by Jenelle Moulton DO) History of cataract extraction History of cholecystectomy History of hysterectomy - Family History Family History (Last Reviewed 02/18/24 @ 09:14 by Jenelle Moulton DO) Mother Diabetes mellitus Heart disease Daughter No problems noted. Father Diabetes mellitus Heart disease Sibling No problems noted. - Social History Social History (Last Reviewed 02/18/24 @ 09:14 by Jenelle Moulton DO) Gender Identity: Gender identity (if verbalized by the patient): Female Alcohol Use: Alcohol intake: never Substance Use: Substance use: never Substance use type: does not use Others: Spiritual care concerns: No Living Arrangements: Living arrangements: with family Oppucation/Education: Occupation/Education: retired Smoking Status: Smoking status: Never smoker Second hand tobacco smoke exposure: No Social Determinants of Health: Do You Feel Safe in your Home?: Yes Has the Lack of Transportation Kept You From Medical Appointments or From Getting Medications?: No Within the Past 12 Months, Were You Worried Whether Your Food Would Run Out Before You Got Money to Buy More?: Never True What is Your Housing Situation Today?: I Have Housing Are You Worried That in the Next 2 Months, You May Not Have Your Own Housing to Live In?: No Do You Have Trouble Paying Your Heating Or Electricity Bill?: No Do You Have Trouble Paying For Medicines?: No Are You Currently Unemployed and Looking for Work?: No Highest Level of Education Completed: Decline to Answer Do You Have Trouble With Childcare or the Care of a Family Member?: No - Medications Active Medications Generic Name Dose Route Start Last Admin Trade Name Freq PRN Reason Stop Dose Admin Acetaminophen 650 mg 02/17/24 21:28 02/22/24 20:18 Acetaminophen 325 Mg Tablet PO 650 mg Q4H PRN Administration Mild Pain (1-3) or Fever Aspirin 81 mg 02/18/24 08:00 02/22/24 08:40 Aspirin 81 Mg Chewable Tablet PO 81 mg DAILY@0800 KT Administration Calcium Carbonate 500 mg 02/18/24 09:00 02/22/24 08:40 Calcium/Vitamin D 500 Mg/5 Mcg (200 I.U.) Tablet PO 500 mg QAM KT Administration Enoxaparin Sodium 40 mg 02/18/24 09:00 02/22/24 08:41 Enoxaparin 40 Mg/0.4 Ml Syringe SUB-Q 40 mg DAILY KT Administration Fidaxomicin 200 mg 02/18/24 02:30 02/22/24 20:18 Fidaxomicin 200 Mg Tablet PO 200 mg Q12HR KT Administration Furosemide 20 mg 02/23/24 09:00 Furosemide 20 Mg Tablet PO DAILY KT Loratadine 10 mg 02/18/24 09:00 02/22/24 08:40 Loratadine 10 Mg Tablet PO 10 mg QAM KT Administration Montelukast Sodium 10 mg 02/18/24 21:00 02/22/24 20:18 Montelukast Sodium 10 Mg Tablet PO 10 mg HS KT Administration Ondansetron HCl 4 mg 02/17/24 21:28 02/18/24 01:20 Ondansetron Inj 4 Mg/2 Ml Vial IV PUSH 4 mg Q4H PRN Administration Nausea Ondansetron HCl 4 mg 02/21/24 14:37 Ondansetron Inj 4 Mg/2 Ml Vial IV PUSH Q6H PRN Nausea And Vomiting Perflutren Lipid Microsphere 0 ml 02/22/24 12:12 Perflutren Lipid Microspheres 1.5 Ml Vial Diluted To 10 Ml Total Volume IV PUSH 02/25/24 12:13 ONCE PRN adequate visualization Protocol Saccharomyces Boulardii 250 mg 02/18/24 09:00 02/22/24 17:24 Saccharomyces Boulardii 250 Mg Capsule PO 250 mg BID KT Administration - Allergies Allergies Allergy/AdvReac Type Severity Reaction Status Date / Time mold Allergy Anaphylaxis Verified 02/17/24 19:42 clarithromycin AdvReac Intermediate Hyperactive Verified 02/17/24 19:42 Review of Systems - Constitutional Reports fatigue, Reports lack of energy, Reports malaise, Reports weight loss - Eyes Comments: Normal - ENT Comments: Normal - Cardiovascular Comments: No chest pain or shortness of breath - Respiratory Comments: Denies cough or phlegm production - Gastrointestinal Reports abdominal pain, Reports cramping - Musculoskeletal Reports abnormal walking Exam - Vital Signs Vital Signs - 24 hr 02/21/24 21:13 02/22/24 05:27 02/22/24 08:00 Temperature 36.9 C 36.6 C Pulse Rate 83 74 Respiratory Rate 20 18 Blood Pressure 136/63 139/64 Pulse Oximetry 96 97 Oxygen Delivery Room Air 02/22/24 14:00 02/22/24 20:15 Temperature 37.3 C 36.9 C Pulse Rate 90 83 Respiratory Rate 20 16 Blood Pressure 140/70 141/66 H Pulse Oximetry 98 96 Oxygen Delivery - Exam HEENT: EOMI, PERRLA Neck: supple Lungs: clear to auscultation Heart: no murmurs, gallops, or rubs, regular rhythm, regular rate Abdomen: abdomen soft, non-distended, normal bowel sounds Neurological: generalized weakness Psychological: mental status NL - Lab Results Laboratory Last Values WBC 5.6 K/mm3 (4.5-10.0) 02/21/24 07:09 RBC 3.28 M/mm3 (4.2-5.4) L 02/21/24 07:09 Hgb 9.7 g/dL (12.0-15.0) L 02/21/24 07:09 Hct 29.9 % (37.0-47.0) L 02/21/24 07:09 MCV 91.2 fl (80-100) 02/21/24 07:09 MCH 29.6 pg (26-34) 02/21/24 07:09 MCHC 32.4 g/dl (32-36) 02/21/24 07:09 RDW 13.3 % (11.5-14.5) 02/21/24 07:09 Plt Count 257 k/mm3 (150-375) 02/21/24 07:09 MPV 9.3 fl (7.4-10.4) 02/21/24 07:09 Immature Gran % (Auto) 2.5 % (0-0.5) H 02/21/24 07:09 Neut % (Auto) 62.3 % (45.5-73.1) 02/21/24 07:09 Lymph % (Auto) 18.3 % (18.3-44.2) 02/21/24 07:09 [place]berry % (Auto) 9.6 % (2.6-8.5) H 02/21/24 07:09 Eos % (Auto) 6.9 % (0-4.4) H 02/21/24 07:09 Baso % (Auto) 0.4 % (0.2-1.2) 02/21/24 07:09 Lymph # (Auto) 1.03 K/mm3 (0.9-3.2) 02/21/24 07:09 Newberry # (Auto) 0.5 K/mm3 (0.1-0.6) 02/21/24 07:09 Eos # (Auto) 0.4 K/mm3 (0-0.3) H 02/21/24 07:09 Baso # (Auto) 0.0 K/mm3 (0.0-0.1) 02/21/24 07:09 Abs Immat Gran (auto) 0.14 K/mm3 (0.00-0.031) H 02/21/24 07:09 Absolute Neuts (auto) 3.5 K/mm3 (1.3-6.7) 02/21/24 07:09 Absolute Nucleated RBC 0.000 K/mm3 (0.0-0.012) 02/21/24 07:09 Nucleated RBC % 0.0 % (0.0-0.2) 02/21/24 07:09 PT 13.9 Seconds (11.1-14.7) 02/17/24 20:22 INR 1.0 02/17/24 20:22 APTT 27.1 Seconds (22.3-36.8) 02/17/24 20:22 Sodium 138 mmol/L (137-145) 02/21/24 07:09 Potassium 3.0 mmol/L (3.4-5.0) L 02/21/24 07:09 Chloride 109 mmol/L (98-107) H 02/21/24 07:09 Carbon Dioxide 23 mmol/L (22-30) 02/21/24 07:09 Anion Gap 6 mmol/L (4-12) 02/21/24 07:09 BUN 2 mg/dL (7-17) L 02/21/24 07:09 Creatinine 0.50 mg/dL (0.7-1.0) L 02/21/24 07:09 Estim Creat Clear Calc 67 ml/min 02/21/24 07:09 Estimated GFR > 60 (59-) 02/21/24 07:09 Glucose 85 mg/dL (65-110) 02/21/24 07:09 Lactic Acid 0.7 mmol/L (0.7-2.0) 02/19/24 05:04 Calcium 8.2 mg/dL (8.4-10.2) L 02/21/24 07:09 Magnesium 1.7 mg/dL (1.6-2.3) 02/21/24 07:09 Iron 18 ug/dL (37-170) L 02/22/24 08:33 TIBC 245 ug/dL (261-462) L 02/22/24 08:33 % Saturation 7 % (20-50) L 02/22/24 08:33 Ferritin 25.10 ng/mL (11.1-264) 02/22/24 08:33 Total Bilirubin 0.4 mg/dL (0.2-1.3) 02/21/24 07:09 AST 26 U/L (14-36) 02/21/24 07:09 ALT 12 U/L (6-35) 02/21/24 07:09 Alkaline Phosphatase 66 U/L (38-126) 02/21/24 07:09 Troponin I 0.094 ng/mL (0.000-0.034) H* 02/18/24 03:30 C-Reactive Protein 5.4 mg/dL (<1.0) H 02/17/24 20:22 Total Protein 5.0 g/dL (6.3-8.2) L 02/21/24 07:09 Albumin 2.7 g/dL (3.5-5.1) L 02/21/24 07:09 Lipase 19 U/L (23-300) L 02/17/24 20:22 Stl Occult Blood (IFOB) Positive (N) H 02/22/24 14:25 C. difficile (PCR) Positive (NEGATIVE) A* 02/18/24 01:19
[2024-02-23] MEDS: ACETAMINOPHEN 325 MG TABLET 650 MG PO ×3 (01:13→20:43)
[2024-02-23 02:17] LABS: Add Urine Microscopic? YES; Appearance Urine Turbid (Clear); Bacteria Urine 4+ /hpf; Bilirubin Urine Negative (Negative); Blood Urine 3+ (Negative); Color Urine Yellow (Yellow); Glucose Urine UA Negative (Negative); Ketones Urine Negative (Negative); Leukocyte Esterase Ur 3+ LEU/UL (Negative); Nitrate Urine Negative (Negative); Non Pathogenic Casts 0-2; Protein Urine 2+ mg/dL (Negative); RBC Urine 51-100 /hpf (0-2); Specific Grav Ur 1.007 (1.001-1.035); Squamous Epithelial Cell Urine None Seen /hpf (Few); Urobilinogen Urine 0.2 mg/dL (<2.0); WBC Urine >100 /hpf (0-3); pH Urine 6.5 (5.0-9.0)
[2024-02-23 05:40] VITALS: BP 123/69; PULSE 80; RESP 16; TEMP 36.8; O2SAT 92
--- NOTE | 2024-02-23 05:57 | P.PNUR_ITS ---
Progress Note: A&P Assessment and Plan (1) Left renal mass: Code(s): N28.89 - Other specified disorders of kidney and ureter Status: Acute Assessment and Plan: * MRI c/w small renal cell ca. in left kidney upper pole. * Agree with med. onc. recommendations for conservative management/serial MRI imaging. * Natural history is that these may grow very slowly and never require intervention - especially at her age. * If unexpected growth observed she would be a candidate for thermal ablation. Subjective Subjective Date/Time Seen: 02/23/24 05:57 Interval history: No complaints Review of Systems Cardiovascular: Cardiovascular: Denies chest pain, Denies lightheadedness, Denies palpitations and Denies dyspnea Respiratory: Respiratory: Denies dyspnea Gastrointestinal: Gastrointestinal: Denies diarrhea, Denies nausea and Denies vomiting Genitourinary: Genitourinary: Denies hematuria and Denies dysuria Endocrine: Endocrine: Denies palpitations Exam Const: General: no acute distress Resp: Effort & Inspection: normal respiratory effort GI: Inspection: non-distended GI Palp: No abdominal tenderness and No Guarding due to palpation present (GI) Auscultation: normal bowel sounds Objective Data Vital Signs Vital Signs: Vital Signs - 24 hr 02/22/24 08:00 02/22/24 14:00 02/22/24 20:15 Temperature 99.2 F 98.5 F Pulse Rate 90 83 Respiratory Rate 20 16 Blood Pressure 140/70 141/66 H Pulse Oximetry 98 96 Oxygen Delivery Room Air 02/22/24 20:00 02/23/24 05:40 Temperature 98.2 F Pulse Rate 80 Respiratory Rate 16 Blood Pressure 123/69 Pulse Oximetry 92 Oxygen Delivery Room Air Intake/Output Intake/Output: Intake & Output 02/21/24 02/21/24 02/22/24 02/23/24 00:59 23:59 23:59 23:59 Intake Total 2560 950 Output Total 650 1400 Balance 1910 -450 Meds/Results Medications: Active Medications Generic Name Dose Route Start Last Admin Trade Name Freq PRN Reason Stop Dose Admin Acetaminophen 650 mg 02/17/24 21:28 02/23/24 01:13 Acetaminophen 325 Mg Tablet PO 650 mg Q4H PRN Administration Mild Pain (1-3) or Fever Aspirin 81 mg 02/18/24 08:00 02/22/24 08:40 Aspirin 81 Mg Chewable Tablet PO 81 mg DAILY@0800 KT Administration Calcium Carbonate 500 mg 02/18/24 09:00 02/22/24 08:40 Calcium/Vitamin D 500 Mg/5 Mcg (200 I.U.) Tablet PO 500 mg QAM KT Administration Enoxaparin Sodium 40 mg 02/18/24 09:00 02/22/24 08:41 Enoxaparin 40 Mg/0.4 Ml Syringe SUB-Q 40 mg DAILY KT Administration Fidaxomicin 200 mg 02/18/24 02:30 02/22/24 20:18 Fidaxomicin 200 Mg Tablet PO 200 mg Q12HR KT Administration Furosemide 20 mg 02/23/24 09:00 Furosemide 20 Mg Tablet PO DAILY [facility] Ceftriaxone Sodium 1 gm in 50 mls @ 100 mls/hr 02/23/24 04:00 02/23/24 03:39 Rocephin 1 Gm/Ns 50 Ml IVPB 100 mls/hr Q24H KT Administration Loratadine 10 mg 02/18/24 09:00 02/22/24 08:40 Loratadine 10 Mg Tablet PO 10 mg QAM KT Administration Montelukast Sodium 10 mg 02/18/24 21:00 02/22/24 20:18 Montelukast Sodium 10 Mg Tablet PO 10 mg HS [facility] Administration Ondansetron HCl 4 mg 02/17/24 21:28 02/18/24 01:20 Ondansetron Inj 4 Mg/2 Ml Vial IV PUSH 4 mg Q4H PRN Administration Nausea Ondansetron HCl 4 mg 02/21/24 14:37 Ondansetron Inj 4 Mg/2 Ml Vial IV PUSH Q6H PRN Nausea And Vomiting Perflutren Lipid Microsphere 0 ml 02/22/24 12:12 Perflutren Lipid Microspheres 1.5 Ml Vial Diluted To 10 Ml Total Volume IV PUSH 02/25/24 12:13 ONCE PRN adequate visualization Protocol Saccharomyces Boulardii 250 mg 02/18/24 09:00 02/22/24 17:24 Saccharomyces Boulardii 250 Mg Capsule PO 250 mg BID KT Administration Radiology Results: ITS Impressions Abdomen MRI 02/21/24 14:33 IMPRESSION: 1. 1.4 cm T2 hyperintense heterogeneously enhancing lesion at the upper pole the left kidney consistent with renal cell carcinoma. 2. 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 Labs Labs: Laboratory Results - last 24 hr 02/22/24 02/22/24 02/22/24 08:33 14:25 23:42 Iron 18 L TIBC 245 L % Saturation 7 L Ferritin 25.10 Urine Color Cancelled Urine Appearance Cancelled Urine pH Cancelled Ur Specific Surprise Cancelled Urine Protein Cancelled Urine Glucose (UA) Cancelled Urine Ketones Cancelled Ur Blood (Man) Cancelled Urine Nitrate Cancelled Urine Bilirubin Cancelled Urine Urobilinogen Cancelled Add Ur Microanalysis Cancelled Leukocyte Esterase Rfl Cancelled Urine RBC Cancelled Urine WBC Cancelled Urine WBC Clumps Cancelled Ur Squamous Epith Cells Cancelled Ur Transition Epith Cell Cancelled Ur Renal Epithelial Cell Cancelled Yousuf Biurate Crystals Cancelled Calcium Carbonate Cryst Cancelled Calcium Phosphate Cryst Cancelled Calcium Oxalate Crystal Cancelled Leucine Crystals Cancelled Cystine Crystals Cancelled Uric Acid Crystals Cancelled Triple Phos Crystals Cancelled Sulfonamide Crystals Cancelled Cholesterol Crystals Cancelled Talc Crystals Cancelled Tyrosine Crystals Cancelled Hippuric Acid Crystals Cancelled Bilirubin Crystals Cancelled Other Crystals Cancelled Amorphous Sediment Cancelled Other Sediment Cancelled Urine Bacteria Cancelled Urine Casts Cancelled Cellular Casts Cancelled Epithelial Casts Cancelled Fatty Casts Cancelled Hyaline Casts Cancelled Granular Casts Cancelled Waxy Casts Cancelled Broad Casts Cancelled RBC Casts Cancelled WBC Casts Cancelled Urine Starch Cancelled Urine Mucus Cancelled Urine Trichomonas Cancelled Urine Yeast (Budding) Cancelled Ur Oval Fat Bodies Cancelled Sperm Presence Cancelled Stl Occult Blood (IFOB) Positive H 02/23/24 02:05 Iron TIBC % Saturation Ferritin Urine Color Yellow Urine Appearance Turbid H Urine pH 6.5 Ur Specific [place] 1.007 Urine Protein 2+ H Urine Glucose (UA) Negative Urine Ketones Negative Ur Blood (Man) 3+ H Urine Nitrate Negative Urine Bilirubin Negative Urine Urobilinogen 0.2 Add Ur Microanalysis Leukocyte Esterase Rfl 3+ H Urine RBC 51-100 H Urine WBC >100 H Urine WBC Clumps Ur Squamous Epith Cells None seen Ur Transition Epith Cell Ur Renal Epithelial Cell Ko Olina Biurate Crystals Calcium Carbonate Cryst Calcium Phosphate Cryst Calcium Oxalate Crystal Leucine Crystals Cystine Crystals Uric Acid Crystals Triple Phos Crystals Sulfonamide Crystals Cholesterol Crystals Talc Crystals Tyrosine Crystals Hippuric Acid Crystals Bilirubin Crystals Other Crystals Amorphous Sediment Other Sediment Urine Bacteria 4+ Urine Casts 0-2 Cellular Casts Epithelial Casts Fatty Casts Hyaline Casts Granular Casts Waxy Casts Broad Casts RBC Casts WBC Casts Urine Starch Urine Mucus Urine Trichomonas Urine Yeast (Budding) Ur Oval Fat Bodies Sperm Presence Stl Occult Blood (IFOB)
[2024-02-23 06:29] LABS: Basophils Percent Auto 0.6 % (0.2-1.2); Eosinophils Absolute Auto 0.4 K/mm3 (0-0.3); Hematocrit 29.8 % (37.0-47.0); Hemoglobin 9.5 g/dL (12.0-15.0); Immature Granulocyte Absolute 0.32 K/mm3 (0.00-0.031); Immature Granulocyte Percent A 4.6 % (0-0.5); Lymphocytes Absolute Auto 1.15 K/mm3 (0.9-3.2); Lymphocytes Percent Auto 16.5 % (18.3-44.2); Mean Corpuscular HGB Conc 31.9 g/dl (32-36); Mean Corpuscular Hemoglobin 29.4 pg (26-34); Mean Corpuscular Volume 92.3 fl (80-100); Mean Platelet Volume 9.5 fl (7.4-10.4); Monocytes Absolute Auto 0.6 K/mm3 (0.1-0.6); Monocytes Percent Auto 8.6 % (2.6-8.5); Neutrophils Absolute Auto 4.5 K/mm3 (1.3-6.7); Neutrophils Percent Auto 64.7 % (45.5-73.1); Platelet Count Result 265 k/mm3 (150-375); Red Blood Count 3.23 M/mm3 (4.2-5.4); Red Cell Distribution Width 13.5 % (11.5-14.5)
[2024-02-23 06:45] LABS: Alanine Aminotransferase 10 U/L (6-35); Albumin Level 2.5 g/dL (3.5-5.1); Alkaline Phosphatase 61 U/L (38-126); Anion Gap 5 mmol/L (4-12); Aspartate Amino Transferase 18 U/L (14-36); Bilirubin,Total 0.4 mg/dL (0.2-1.3); Blood Urea Nitrogen 4 mg/dL (7-17); Calcium 8.1 mg/dL (8.4-10.2); Carbon Dioxide 28 mmol/L (22-30); Chloride 104 mmol/L (98-107); Estimated CRCL calculation 67 ml/min; Estimated Glomerular Filt Rate > 60; Glucose 88 mg/dL (65-110); Magnesium 1.6 mg/dL (1.6-2.3); Potassium 2.7 mmol/L (3.4-5.0); Sodium 137 mmol/L (137-145)
[2024-02-23] MEDS: FIDAXOMICIN 200 MG TABLET PO ×2 (08:30→20:43)
[2024-02-23] MEDS: CALCIUM/VITAMIN D 500 MG/5 MCG (200 I.U.) TABLET PO (08:30)
[2024-02-23] MEDS: POTASSIUM CHLORIDE 20 MEQ ER TABLET 40 MEQ PO (08:30)
[2024-02-23] MEDS: FUROSEMIDE 20 MG TABLET PO (08:30)
[2024-02-23] MEDS: ASPIRIN 81 MG CHEWABLE TABLET PO (08:30)
[2024-02-23] MEDS: LORATADINE 10 MG TABLET PO (08:30)
[2024-02-23] MEDS: SACCHAROMYCES BOULARDII 250 MG CAPSULE PO ×2 (08:30→16:59)
[2024-02-23] MEDS: ENOXAPARIN 40 MG/0.4 ML SYRINGE SUB-Q (08:34)
[2024-02-23 08:37] VITALS: BP 131/76; PULSE 83; RESP 16; O2SAT 94
[2024-02-23 08:46] LABS: Atypical Lymphocytes Present; Platelet Estimate Adequate (Adequate); Schistocytes None Seen
[2024-02-23 08:47] LABS: Hypochromasia 1+; Microcytosis 1+ (NORMAL)
[2024-02-23 11:11] LABS: Potassium 3.4 mmol/L (3.4-5.0)
[2024-02-23 14:00] VITALS: BP 124/53; PULSE 79; RESP 18; TEMP 36.7; O2SAT 99
[2024-02-23] MEDS: ONDANSETRON INJ 4 MG/2 ML VIAL IV PUSH (16:59)
--- NOTE | 2024-02-23 16:59 | PM.IMPN ---
Progress Note: A&P Assessment and Plan (1) C. difficile colitis: Code(s): A04.72 - Enterocolitis due to Clostridium difficile, not specified as recurrent Status: Acute (2) Elevated troponin: Code(s): R79.89 - Other specified abnormal findings of blood chemistry Status: Acute (3) Acute metabolic encephalopathy: Code(s): G93.41 - Metabolic encephalopathy Status: Acute (4) Hypotension due to hypovolemia: Code(s): E86.1 - Hypovolemia Status: Acute (5) Left renal mass: Code(s): N28.89 - Other specified disorders of kidney and ureter Status: Acute Plan Plan C diff colitis Patient presented with diarrhea CT AP showed pancolitis and stool PCR positive for C diff Day 5 Fidoxamicin encourage oral intake Diarrhea resolved monitor Fluid overload likely from IVF Give one dose of Lasix restart home lasix ECHO pending 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 MRI showed changes consistent with RCC also showed a sarcoma urology following recommends conservative management Oncology consulted IR consulted AMS resolved patient alert and oriented x3 at the time of this encounter monitor hypotension from diarrhea resolved BP stable s/p IVf DVT prophylaxis on Sq lovenox PT/OT Subjective Date/time seen: 02/23/24 16:59 Interval history: Urology evaluated the patient because of the 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 Considering her age recommends conservative management /serially MRI imaging. Today we discontinue the ceftriaxone. Patient is on Dificid until 02/26 for C diff. Review of Systems Review of Systems: alert and oriented was having breakfast at the time of this encounter Exam Narrative: Weight 65 kg BMI 28 Const: Other: Acutely ill-appearing, otherwise well-developed well-nourished, appears stated age HENMT: Other: Mucous membranes are dry, no oral pharyngeal erythema, no conjunctival pallor, no scleral icterus, head is normocephalic atraumatic, periorbital edema bilaterally Eyes: Other: Please see above Neck: Other: No JVD, no thyromegaly, supple Resp: Other: Clear to auscultation bilaterally, no increased work of breathing Cardio: Other: Regular rate, regular rhythm, 2+ bilateral radial pedal pulses, no JVD, no murmur GI: Other: Diffusely tender, normoactive bowel sounds, no organomegaly, soft, mildly distended Skin: Other: Marked pallor, cool to touch, 2-3 second cap refill, no mottling Neuro: Other: Patient is somnolent difficult to arouse she had be woke several times during the course of my evaluation but was oriented x4, no facial asymmetry, moves all extremities equally, pupils are equal and reactive Extrem: Other: Chronic lower extremity lymphedema, patient does have some swelling of bilateral upper extremities currently as well, moves all extremities equally, no cyanosis, normal muscle tone Psych: Other: Somnolent, difficult to arouse, cooperative, otherwise unable to evaluate Objective Data Vital Signs Vital Signs: Vital Signs - 24 hr 02/22/24 20:15 02/22/24 20:00 02/23/24 05:40 Temperature 98.5 F 98.2 F Pulse Rate 83 80 Respiratory Rate 16 16 Blood Pressure 141/66 H 123/69 Pulse Oximetry 96 92 Oxygen Delivery Room Air 02/23/24 08:37 02/23/24 08:30 02/23/24 14:00 Temperature 98.1 F Pulse Rate 83 79 Respiratory Rate 16 18 Blood Pressure 131/76 124/53 L Pulse Oximetry 94 99 Oxygen Delivery Room Air Intake/Output Intake/Output: Intake & Output 02/21/24 02/21/24 02/22/24 02/23/24 00:59 23:59 23:59 23:59 Intake Total 2560 1664 Output Total 650 1400 Balance 1910 264 Meds/Results Medications: Active Medications Generic Name Dose Route Start Last Admin Trade Name Freq PRN Reason Stop Dose Admin Acetaminophen 650 mg 02/17/24 21:28 02/23/24 08:49 Acetaminophen 325 Mg Tablet PO 650 mg Q4H PRN Administration Mild Pain (1-3) or Fever Aspirin 81 mg 02/18/24 08:00 02/23/24 08:30 Aspirin 81 Mg Chewable Tablet PO 81 mg DAILY@0800 KT Administration Calcium Carbonate 500 mg 02/18/24 09:00 02/23/24 08:30 Calcium/Vitamin D 500 Mg/5 Mcg (200 I.U.) Tablet PO 500 mg QAM KT Administration Enoxaparin Sodium 40 mg 02/18/24 09:00 02/23/24 08:34 Enoxaparin 40 Mg/0.4 Ml Syringe SUB-Q 40 mg DAILY KT Administration Fidaxomicin 200 mg 02/18/24 02:30 02/23/24 08:30 Fidaxomicin 200 Mg Tablet PO 02/27/24 09:01 200 mg Q12HR KT Administration Furosemide 20 mg 02/23/24 09:00 02/23/24 08:30 Furosemide 20 Mg Tablet PO 20 mg DAILY KT Administration Loratadine 10 mg 02/18/24 09:00 02/23/24 08:30 Loratadine 10 Mg Tablet PO 10 mg QAM KT Administration Montelukast Sodium 10 mg 02/18/24 21:00 02/22/24 20:18 Montelukast Sodium 10 Mg Tablet PO 10 mg HS KT Administration Ondansetron HCl 4 mg 02/17/24 21:28 02/18/24 01:20 Ondansetron Inj 4 Mg/2 Ml Vial IV PUSH 4 mg Q4H PRN Administration Nausea Ondansetron HCl 4 mg 02/21/24 14:37 Ondansetron Inj 4 Mg/2 Ml Vial IV PUSH Q6H PRN Nausea And Vomiting Perflutren Lipid Microsphere 0 ml 02/22/24 12:12 Perflutren Lipid Microspheres 1.5 Ml Vial Diluted To 10 Ml Total Volume IV PUSH 02/25/24 12:13 ONCE PRN adequate visualization Protocol Saccharomyces Boulardii 250 mg 02/18/24 09:00 02/23/24 08:30 Saccharomyces Boulardii 250 Mg Capsule PO 250 mg BID KT Administration Radiology Results: ITS Impressions Abdomen MRI 02/21/24 14:33 IMPRESSION: 1. 1.4 cm T2 hyperintense heterogeneously enhancing lesion at the upper pole the left kidney consistent with renal cell carcinoma. 2. 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 Labs Labs: Laboratory Results - last 24 hr 02/22/24 02/23/24 02/23/24 23:42 02:05 06:06 WBC 7.0 RBC 3.23 L Hgb 9.5 L Hct 29.8 L MCV 92.3 MCH 29.4 MCHC 31.9 L RDW 13.5 Plt Count 265 MPV 9.5 Immature Gran % (Auto) 4.6 H Neut % (Auto) 64.7 Lymph % (Auto) 16.5 L [place] % (Auto) 8.6 H Eos % (Auto) 5.0 H Baso % (Auto) 0.6 Lymph # (Auto) 1.15 [place] # (Auto) 0.6 Eos # (Auto) 0.4 H Baso # (Auto) 0.0 Abs Immat Gran (auto) 0.32 H Absolute Neuts (auto) 4.5 Absolute Nucleated RBC 0.000 Nucleated RBC % 0.0 Atypical Lymphocytes Present Platelet Estimate Adequate Hypochromasia 1+ Microcytosis 1+ Schistocytes None seen Sodium 137 Potassium 2.7 L* Chloride 104 Carbon Dioxide 28 Anion Gap 5 BUN 4 L Creatinine 0.50 L Estim Creat Clear Calc 67 Estimated GFR > 60 Glucose 88 Calcium 8.1 L Magnesium 1.6 Total Bilirubin 0.4 AST 18 ALT 10 Alkaline Phosphatase 61 Total Protein 5.0 L Albumin 2.5 L Urine Color Cancelled Yellow Urine Appearance Cancelled Turbid H Urine pH Cancelled 6.5 Ur Specific [place] Cancelled 1.007 Urine Protein Cancelled 2+ H Urine Glucose (UA) Cancelled Negative Urine Ketones Cancelled Negative Ur Blood (Man) Cancelled 3+ H Urine Nitrate Cancelled Negative Urine Bilirubin Cancelled Negative Urine Urobilinogen Cancelled 0.2 Add Ur Microanalysis Cancelled Leukocyte Esterase Rfl Cancelled 3+ H Urine RBC Cancelled 51-100 H Urine WBC Cancelled >100 H Urine WBC Clumps Cancelled Ur Squamous Epith Cells Cancelled None seen Ur Transition Epith Cell Cancelled Ur Renal Epithelial Cell Cancelled [place] Biurate Crystals Cancelled Calcium Carbonate Cryst Cancelled Calcium Phosphate Cryst Cancelled Calcium Oxalate Crystal Cancelled Leucine Crystals Cancelled Cystine Crystals Cancelled Uric Acid Crystals Cancelled Triple Phos Crystals Cancelled Sulfonamide Crystals Cancelled Cholesterol Crystals Cancelled Talc Crystals Cancelled Tyrosine Crystals Cancelled Hippuric Acid Crystals Cancelled Bilirubin Crystals Cancelled Other Crystals Cancelled Amorphous Sediment Cancelled Other Sediment Cancelled Urine Bacteria Cancelled 4+ Urine Casts Cancelled 0-2 Cellular Casts Cancelled Epithelial Casts Cancelled Fatty Casts Cancelled Hyaline Casts Cancelled Granular Casts Cancelled Waxy Casts Cancelled Broad Casts Cancelled RBC Casts Cancelled WBC Casts Cancelled Urine Starch Cancelled Urine Mucus Cancelled Urine Trichomonas Cancelled Urine Yeast (Budding) Cancelled Ur Oval Fat Bodies Cancelled Sperm Presence Cancelled 11/05/24 11:01 WBC RBC Hgb Hct MCV MCH MCHC RDW Plt Count MPV Immature Gran % (Auto) Neut % (Auto) Lymph % (Auto) [place] % (Auto) Eos % (Auto) Baso % (Auto) Lymph # (Auto) [place] # (Auto) Eos # (Auto) Baso # (Auto) Abs Immat Gran (auto) Absolute Neuts (auto) Absolute Nucleated RBC Nucleated RBC % Atypical Lymphocytes Platelet Estimate Hypochromasia Microcytosis Schistocytes Sodium Potassium 3.4 Chloride Carbon Dioxide Anion Gap BUN Creatinine Estim Creat Clear Calc Estimated GFR Glucose Calcium Magnesium Total Bilirubin AST ALT Alkaline Phosphatase Total Protein Albumin Urine Color Urine Appearance Urine pH Ur Specific [place] Urine Protein Urine Glucose (UA) Urine Ketones Ur Blood (Man) Urine Nitrate Urine Bilirubin Urine Urobilinogen Add Ur Microanalysis Leukocyte Esterase Rfl Urine RBC Urine WBC Urine WBC Clumps Ur Squamous Epith Cells Ur Transition Epith Cell Ur Renal Epithelial Cell [place] Biurate Crystals Calcium Carbonate Cryst Calcium Phosphate Cryst Calcium Oxalate Crystal Leucine Crystals Cystine Crystals Uric Acid Crystals Triple Phos Crystals Sulfonamide Crystals Cholesterol Crystals Talc Crystals Tyrosine Crystals Hippuric Acid Crystals Bilirubin Crystals Other Crystals Amorphous Sediment Other Sediment Urine Bacteria Urine Casts Cellular Casts Epithelial Casts Fatty Casts Hyaline Casts Granular Casts Waxy Casts Broad Casts RBC Casts WBC Casts Urine Starch Urine Mucus Urine Trichomonas Urine Yeast (Budding) Ur Oval Fat Bodies Sperm Presence Hospitalist MIPS Advance Care Plan I have confirmed that the patient's Advanced Care Plan is present, code status is documented, or surrogate decision maker is listed in patient medical record.: Yes Medication Reconciliation I have utilized all available resources to obtain, update and review the patients current medications (includes all prescriptions, OTC, herbals, cannabis, and nutritional supplements).: Yes
[2024-02-23] MEDS: MONTELUKAST SODIUM 10 MG TABLET PO (20:40)
[2024-02-23 20:45] VITALS: BP 127/55; PULSE 90; RESP 26; TEMP 37.4; O2SAT 95
[2024-02-24 04:55] VITALS: BP 123/58; PULSE 72; RESP 20; TEMP 36.5; O2SAT 94
[2024-02-24 06:24] LABS: Hematocrit 30.3 % (37.0-47.0); Hemoglobin 9.4 g/dL (12.0-15.0); Mean Corpuscular Hemoglobin 28.8 pg (26-34); Mean Corpuscular Volume 92.9 fl (80-100); Mean Platelet Volume 9.8 fl (7.4-10.4); Platelet Count Result 291 k/mm3 (150-375); Red Blood Count 3.26 M/mm3 (4.2-5.4); Red Cell Distribution Width 13.8 % (11.5-14.5); White Blood Count 9.5 K/mm3 (4.5-10.0)
[2024-02-24 06:35] LABS: Alanine Aminotransferase 9 U/L (6-35); Albumin Level 2.9 g/dL (3.5-5.1); Alkaline Phosphatase 79 U/L (38-126); Anion Gap 6 mmol/L (4-12); Aspartate Amino Transferase 18 U/L (14-36); Bilirubin,Total 0.6 mg/dL (0.2-1.3); Blood Urea Nitrogen 7 mg/dL (7-17); Calcium 8.6 mg/dL (8.4-10.2); Carbon Dioxide 27 mmol/L (22-30); Chloride 102 mmol/L (98-107); Estimated CRCL calculation 62 ml/min; Estimated Glomerular Filt Rate > 60; Glucose 86 mg/dL (65-110); Potassium 3.4 mmol/L (3.4-5.0); Sodium 135 mmol/L (137-145)
[2024-02-24] MEDS: ACETAMINOPHEN 325 MG TABLET 650 MG PO (09:26)
[2024-02-24] MEDS: ENOXAPARIN 40 MG/0.4 ML SYRINGE SUB-Q (09:27)
[2024-02-24] MEDS: SACCHAROMYCES BOULARDII 250 MG CAPSULE PO (09:27)
[2024-02-24] MEDS: LORATADINE 10 MG TABLET PO (09:28)
[2024-02-24] MEDS: ASPIRIN 81 MG CHEWABLE TABLET PO (09:28)
[2024-02-24] MEDS: CALCIUM/VITAMIN D 500 MG/5 MCG (200 I.U.) TABLET PO (09:28)
[2024-02-24] MEDS: FIDAXOMICIN 200 MG TABLET PO (09:28)
[2024-02-24] MEDS: FUROSEMIDE 20 MG TABLET PO (09:28)
--- NOTE | 2024-02-24 13:10 | P.DS_ITS ---
DS: Admitting Diagnosis Discharge Date 02/24/2024 Admitting Diagnosis Diarrhea DS: Discharge Diagnosis Discharge Diagnosis (1) C. difficile colitis: Code(s): A04.72 - Enterocolitis due to Clostridium difficile, not specified as recurrent Status: Acute (2) Elevated troponin: Code(s): R79.89 - Other specified abnormal findings of blood chemistry Status: Acute (3) Acute metabolic encephalopathy: Code(s): G93.41 - Metabolic encephalopathy Status: Acute (4) Hypotension due to hypovolemia: Code(s): E86.1 - Hypovolemia Status: Acute (5) Left renal mass: Code(s): N28.89 - Other specified disorders of kidney and ureter Status: Acute Plan Plan C diff colitis Patient presented with diarrhea CT AP showed pancolitis and stool PCR positive for C diff Day 5 Fidoxamicin encourage oral intake Diarrhea resolved monitor Fluid overload likely from IVF Give one dose of Lasix restart home lasix ECHO pending 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 MRI showed changes consistent with RCC also showed a sarcoma urology following recommends conservative management Oncology consulted IR consulted AMS resolved patient alert and oriented x3 at the time of this encounter monitor hypotension from diarrhea resolved BP stable s/p IVf DVT prophylaxis on Sq lovenox PT/OT DS: Summary Hospital Course Hospital Course: 84-year-old female with a past medical history chronic lower extremity lymphedema, allergic rhinitis and hyperlipidemia who presented to the ER with worsening diarrhea. The patient had been admitted to the hospital 01/30/2024 through 02/03/2024 for rodgers colitis noted on CT scan. At that time C diff testing was negative and stool cultures were negative. The patient was started on Imodium when stool specimens were negative for infectious source. Patient was placed on empiric antibiotic therapy with Rocephin and Flagyl. According to the notes patient's diarrhea did improve and she had a firm palpable stool prior to discharge. She was discharged home on cefdinir and Flagyl. However, the patient states that her diarrhea really did not improved. She has had persistent worsening diarrhea since discharge. She had also developed significant nausea vomiting and has had decreased oral intake. She was having worsening abdominal pain in her left lower abdomen. Her stool is mucousy and foul-smelling. She became so weak that she decided come back to the ER on the morning of the . At that time she was noted to be mildly hypotensive in received fluids with improvement in her blood pressures. A CT scan at that time demonstrated persistent rodgers colitis. The patient did not have any diarrheal stools in the ER. The ER provider discharged the patient home on Augmentin. She did take 1 dose of the Augmentin but returned that evening when she was having more incontinent stools and more profound weakness. On arrival to the ER she was noted to be hypotensive again and received 2 more L of isotonic fluids. She did have improvement in her blood pressures. However, the patient did look acutely ill. Due to tachycardia an EKG was performed and troponins were obtained. Patient's troponins were mildly elevated. Patient denied having any chest pain. The patient was subsequently placed on fluids and admitted to IMU for monitoring. On arrival to the IMU the patient had a large incontinent diarrheal stool that seemed consistent in appearance with C diff. stool was sent for testing is found to be positive for C diff. patient was started on Dificid.Continue Fidaxomicin 200mg 2 times a day until 02/27/2024 CT imaging incidentally demonstrated an indeterminate 1.2 cm left renal mass. Patient denies significant flank pain or hematuria. And was evaluated by Urolo gy and Hematology. Urology Agree with med. onc. recommendations for conservative management/serial MRI imaging. Natural history is that these may grow very slowly and never require intervention - especially at her age. If unexpected growth observed she would be a candidate for thermal ablation. Status at Discharge Cognitive/behavioral status at discharge: Stable Time Spent with Patient Time attestation: Total time spent providing and/or coordinating discharge services: 45 minutes Exam Narrative: Weight 65 kg BMI 28 Const: Other: Acutely ill-appearing, otherwise well-developed well-nourished, appears stated age HENMT: Other: Mucous membranes are dry, no oral pharyngeal erythema, no conjunctival pallor, no scleral icterus, head is normocephalic atraumatic, periorbital edema bilate rally Eyes: Other: Please see above Neck: Other: No JVD, no thyromegaly, supple Resp: Other: Clear to auscultation bilaterally, no increased work of breathing Cardio: Other: Regular rate, regular rhythm, 2+ bilateral radial pedal pulses, no JVD, no murmur GI: Other: Diffusely tender, normoactive bowel sounds, no organomegaly, soft, mildly distended Skin: Other: Marked pallor, cool to touch, 2-3 second cap refill, no mottling Neuro: Other: Patient is somnolent difficult to arouse she had be woke several times during the course of my evaluation but was oriented x4, no facial asymmetry, moves all extremities equally, pupils are equal and reactive Extrem: Other: Chronic lower extremity lymphedema, patient does have some swelling of bilateral upper extremities currently as well, moves all extremities equally, no cyanosis, normal muscle tone Psych: Other: Somnolent, difficult to arouse, cooperative, otherwise unable to evaluate DS: Data Data Completed and Pending Labs on day of discharge: Labs from last 24 hours 02/24/24 05:28 WBC 9.5 RBC 3.26 L Hgb 9.4 L Hct 30.3 L MCV 92.9 MCH 28.8 MCHC 31.0 L RDW 13.8 Plt Count 291 MPV 9.8 Sodium 135 L Potassium 3.4 Chloride 102 Carbon Dioxide 27 Anion Gap 6 BUN 7 Creatinine 0.50 L Estim Creat Clear Calc 62 Estimated GFR > 60 Glucose 86 Calcium 8.6 Total Bilirubin 0.6 AST 18 ALT 9 Alkaline Phosphatase 79 Total Protein 6.0 L Albumin 2.9 L Preliminary micro results at discharge 02/23/24 02:05 Urine Culture - Preliminary Urine Catheterized Enterobacter cloacae complex Discharge Plan Discharge Attending physician on discharge: Bob Benitez Consulting providers: Chencho Patterson; Scott Tan V.; Grace Thapa Discharging Clinician: Bob Benitez Anticipated Discharge Date/Time: 02/24/24 12:57 Patient Disposition: SNF Activity: as tolerated Diet: heart healthy Discharge Instructions: MRI c/w small renal cell carcinoma in left kidney upper pole. Urology and Oncology recommends for conservative management/serial MRI imaging. Continue Fidaxomicin 200mg 2 times a day until 02/27/2024 Patient Instructions: Pain Management (GEN), Acute Abdominal Pain (GEN) Stand Alone Forms: General Discharge Information Follow-up/Referrals: Grace Thapa MD [Physician] - 4 Weeks (MRI c/w small renal cell carcinoma in left kidney upper pole. Urology and Oncology recommends for conservative management/serial MRI imaging.) Chencho Patterson MD [Physician] - 4 Weeks (MRI c/w small renal cell carcinoma in left kidney upper pole. Urology and Oncology recommends for conservative management/serial MRI imaging.) Discharge Medications: New Dificid 200 mg Tablet 200 mg PO Q12HR Qty: 8 0RF Rx Instructions: Take 1 tab two times a day until 02/27/2024. Continued montelukast 10 mg tablet 10 mg PO HS rosuvastatin 10 mg tablet 10 mg PO DAILY fexofenadine [Cyn Allergy] 180 mg tablet 180 mg PO DAILY Saccharomyces boulardii [Daily Probiotic (S. boulardii)] 250 mg capsule 250 mg PO BID ondansetron 4 mg tablet,disintegrating 4 mg PO Q8H PRN (Reason: nausea and vomiting) Qty: 14 0RF furosemide 20 mg tablet 20 mg PO DAILY acetaminophen [Tylenol] 325 mg Capsule 650 mg PO PRN PRN (Reason: Pain) Caltrate 600 plus D 600 mg-20 mcg (800 unit) Tablet,Chewable 1 tablet PO DAILY Held loperamide 2 mg Capsule 2 mg PO PRN PRN (Reason: Diarrhea) Qty: 10 0RF Hold Instructions: Resume on 03/16/24. Discontinued amoxicillin-pot clavulanate 875-125 mg tablet 1 tablet PO Q12H Qty: 14 0RF Date of admission: 02/22/24 16:15 Primary Care Provider: RamonYunior Admitting Provider: Jenelle Moulton Attending physician on admission: Jenelle Moulton Condition: Stable
== END 2024-02-24 14:20 | DRG 371 ==
LOC: ANHED 21:30 → ANHIMU 02-18 05:34 → ANH3MEDSUR 02-22 06:04 → ANHIMU 02-22 07:10 → ANH3MEDSUR 02-22 07:11
PROVIDERS: Internal Medicine; Nurse Practitioner Gerontology; Registered Nurse; Admitting Provider Internal Medicine; Emergency Provider Emergency Medicine; PCP Internal Medicine; Visit Provider General Practice
DX: A04.72 Enterocolitis due to Clostridium difficile, not specified as recurrent (principal); G93.41 Metabolic encephalopathy; C64.2 Malignant neoplasm of left kidney, except renal pelvis; E86.1 Hypovolemia; I95.9 Hypotension, unspecified; R79.89 Other specified abnormal findings of blood chemistry; I89.0 Lymphedema, not elsewhere classified; E78.00 Pure hypercholesterolemia, unspecified; M17.0 Bilateral primary osteoarthritis of knee
CPT/HCPCS: 36415; 74183; 80053; 81001; 82274; 82728; 83540; 83550; 83605; 83690; 83735; 84132; 84484; 85025; 85027; 85610; 85730; 86140; 87040; 87045; 87086; 87186; 87427; 87449; 87493; 93005; 93306; 96361; 96365; 96372; 96375; 97110; 97161; 97165; 97530; 97535; 99285; A9270; A9577; G0378; J0696; J1650; J1756; J1940; J2405; J2543; J7030; J7050

== ENCOUNTER 2024-11-07 09:04 | Outpatient (CLI) | payer MEDICARE, MEDICAID, SELFPAY ==
--- NOTE | ~2024-11-07 | CT_ITS ---
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 Automated exposure control and iterative reconstruction technique were employed. The dose-length product was 782.82 mGy-cm. COMPARISON: MR dated 02/20/2024 and 02/17/2024 FINDINGS: Mild dependent atelectasis in bilateral lower lobes. Heart size is normal. Atherosclerotic coronary a rtery calcific location and aortic valve calcification. No pericardial effusion. Multiple hepatic and splenic calcifications consistent with old granulomatous disease. Cholecystectomy clips the gallblad juana fossa. Pancreas, right kidney and bilateral adrenal glands are normal. 1.6 cm mass in the left ki dney with slightly decreased enhancement relative to the surrounding kidney with identical size on re measurement on the prior 2 studies. Visualized portions of bowels are unremarkable. No pathologically enlarged abdominal lymphadenopathy. 40 degrees lumbar dextroscoliosis with severe spondylosis in the lumbar and lower thoracic spine. IMPRESSION: 1. No change in a left renal mass consistent with renal cell carcinoma which measures 1.6 cm in the c urrent study with identical measurements on corresponding remeasurement of the prior imaging. Reviewed, dictated and finalized at location A. IMPRESSION: 1. No change in a left renal mass consistent with renal cell carcinoma which me asures 1.6 cm in the current study with identical measurements on corresponding remeasurement of the prior imaging.
--- OUTSIDE RECORDS SUMMARY | 2024-11-07 09:11 | XMS_ITS | Data Portability ---
Author Organization [place] [facility] [employer], Main Office Address [address] [place] [address] Care Team Providers Care Cork Grinder Name Role Phone JG PRYOR Primary Care Provider JG PRYOR Referring Provider JG PRYOR Primary Care Provider [phone] Assessment Encounter Date Assessment Date Assessment LastModified by Organization Details LastModified Time 11/17/2022 11/17/2022 [email or web address] portion completed by Morena Frost RN under supervision of Dr Pryor refuses all immunizations and screenings Orthopedics for hip and knee Blood pressure conservative treatment Rhinitis Singulair Dyslipidemia rosuvastatin Follow-up 4 months continue meds [email or web address] Not available 11/18/2022 08:30:46 11/24/2022 11/24/2022 Patient presents arthritis both knees. She has [id number] arthritis of her knees and varus deformity. She does not have much history of treatment for arthritis of her knees she basically says she has takes aspirin or Advil or what ever is on her dresser and treated to confirm that way. She walks with an antalgic gait has motion from about 3-100 degrees varus significant varus deformity grinding crepitus and pain. Her ankles are really quite small. Clearly she has arthritis in both knees. At some point she probably would benefit from knee replacement surgery. She is not interested at this time. I injected both knees with 20 mg Kenalog 4 cc 1% lidocaine. For prescription drug management will try prednisone taper for pain and inflammation. She declined the therapy. I will see her back in a month for follow-up discussed. [email or web address] Not available 11/24/2022 11:19:25 12/29/2022 12/29/2022 Patient returns knee pain right left. The right 1 got a little better unfortunately the left foot continues to hurt a fair bit. She is clearly not reached her treatment goals at this point. We will continue with the exercises. For prescription drug management will try Voltaren for pain and inflammation. I will see her back in a month for follow-up if she does get better we talked about hyaluronic acid versus surgery. Surgery would be a bit high risk for her. [email or web address] Not available 12/29/2022 10:15:45 03/16/2023 03/16/2023 Continue current therapy will follow-up with me in 4 months. [email or web address] Not available 03/16/2023 22:48:25 Plan of Treatment Reminders Order Date Submit Date Provider Last Modified By Organization Details Last Modified Time Details Appointments None recorded. Lab CBC w/ auto diff 2022 023 [facility] (Lab), [address] [place], [address], 13:38:13 lipid panel, serum 2022 023 [facility] (Lab), [address] [place], [address], 14:27:16 CMP, serum or plasma 2022 023 [facility] (Lab), [address] [place], [address], 14:27:21 Referral orthopedic surgeon referral 2022 023 [facility], [address] [place], [address], 11:29:00 Procedures injection/a spiration joint/bursa (PROC) - in office procedure, administere d by provider 2022 023 [email or web address] In-Office Order, Internal Use Only DO Not Attach Compendium DO Not Attach Compendium, Do Not Delete/merge, [id number] 11:19:17 Surgeries None recorded. Imaging XR, knee 2022 023 [email or web address] [facility] [place], [address], [place], [address], 3 11:31:42 Medication Orders diclofenac sodium 75 mg tablet,merary yed release 2022 0[email or web address] #[id number], [address], [place], [place], [id number], 3 10:16:04 Kenalog 10 mg/mL suspension for injection 2022 023 [id number] [address] [facility] #[id number], [address], [place], [place], [id number], 4 14:59:55 ropivacaine (PF) 5 mg/mL (0.5 %) injection solution 2022 023 [id number] [address] [facility] #[id number], [address], [place], [place], [id number], 4 14:59:55 diclofenac sodium 75 mg tablet,merary yed release 2022 023 [facility] [address] [facility] #[id number], [address], [place], [place], [id number], 3 11:24:12 Patient TargetsNo targets recorded. Patient Instructions Encounter Date Encounter Id Patient Instructions Last Modified By Organization Details Last Modified Time 11/17/2022 [id number] dementia rating scale-2* [email or web address] Not available 11/17/2022 13:05:02 Timed Up and Go test (TUG)* Not available 11/17/2022 13:05:02 depression screening* [email or web address] Not available 11/17/2022 13:05:02 alcohol misuse* Not available 11/17/2022 13:05:02 multi-dimensiona health assessment questionnaire* [email or web address] Not available 11/17/2022 13:05:02 [place] Advance Directives [email or web address] Not available 11/17/2022 13:05:02 Personalized [facility] Plan and Screening Recommendations Advance Directives - Do you have one? No Advance Directives - Do we have your advance directive on file in your health record? Primary Prevention/Interven tion (prevents or decreases the chance of common diseases from occurring) Smoking Risk: Non Smoker Alcohol Misuse Screening: Negative Weight: Overweight try to lose 15% of your body weight Physical activity: Need more exercise/physical activity minimum of 20-30 minutes activity that causes mild breathlessness/day Nutrition: Average Refer to attached handout Heart-Healthy Diet: After Your Visit Fall Risk (screened today): Low Recommend regular use of cane or walker Vaccines Pneumococcal: Recommended today, but you have declined Influenza: Recommended , but you have declined Chronic Disease Risks Stroke: Intermediate Risk Active diagnosis, Continue current treatment plan Heart Attack: Intermediate Risk Active diagnosis, Continue current treatment plan Clogging of the Arteries: Intermediate Risk Active diagnosis, Continue current treatment plan Diabetes: Low Risk I have no recommendations Secondary Prevention/Interven tion (detects treatable diseases before they may cause symptoms, disability, or ) Breast Cancer Screening with mammogram: No screening necessary Cervical/Uterine/Ov manny Cancer Screening: No screening necessary Osteoporosis Screening: Recommended today, but you have declined Date Screening Last Performed: Colon Cancer Screening: No screening necessary No screening necessary Date Screening Last Performed: Eye Disease Screening: Your next exam in: annually Dementia Risk: Low I have no recommendations Depression Screening: Negative [email or web address] Not available 11/17/2022 11:57:57 Reason for Referral Orthopedic Surgeon Referral for Pain of bilateral knee joints Referring Physician: Jg Pryor, Internal Medicine, Encounter Date: 11/17/2022 Results Created Date Observation Date Name Description Value Unit Range Abnormal Flag Note LastModifiedBy Organization Detail LastModifiedTime 05/19/19 23 05/19/2022 CBC/C OMPLE TE BLD COUNT W/DIF F hematocrit 43.7 % 35.7-4 5.7 Not Available [facility] ([facility]) [address] [place], [address], 05/19/2022 17:17:24 05/19/19 23 05/19/2022 CBC/C OMPLE TE BLD COUNT W/DIF F white blood cells 6.7 x10'3 /uL 4.2-10 .8 Not Available [facility] (Lab) [address] [place], [address], 05/19/2022 17:17:24 05/19/19 23 05/19/2022 CBC/C OMPLE TE BLD COUNT W/DIF F red blood cells 4.54 x10'6 /uL 3.80-5 .20 Not Available [facility] (Lab) [address] [place], [address], 05/19/2022 17:17:24 05/19/19 23 05/19/2022 CBC/C OMPLE TE BLD COUNT W/DIF F hemoglobin 14.0 g/dL 12.0-1 5.6 Not Available [facility] (Lab) [address] [place], [address], 05/19/2022 17:17:24 05/19/19 23 05/19/2022 CBC/C OMPLE TE BLD COUNT W/DIF F mean red cell volume 96.3 fL 82.0-9 9.0 Not Available [facility] (Lab) [address] [place], [address], 05/19/2022 17:17:24 05/19/19 23 05/19/2022 CBC/C OMPLE TE BLD COUNT W/DIF F mean red cell hemoglobin 30.8 pg 27.0-3 3.0 Not Available [facility] (Lab) [address] [place], [address], 05/19/2022 17:17:24 05/19/19 23 05/19/2022 CBC/C OMPLE TE BLD COUNT W/DIF F mean RBC HGB concentratio n 32.0 g/dL 31.0-3 6.0 Not Available [facility] (Lab) [address] [place], [address], 05/19/2022 17:17:24 05/19/19 23 05/19/2022 CBC/C OMPLE TE BLD COUNT W/DIF F red cell distribution width 13.2 % 11.8-1 5.5 Not Available [facility] (Lab) [address] [place], [address], 05/19/2022 17:17:24 05/19/19 23 05/19/2022 CBC/C OMPLE TE BLD COUNT W/DIF F platelets 299 x10'3 /uL 150-40 0 Not Available [facility] (Lab) [address] [place], [address], 05/19/2022 17:17:24 05/19/19 23 05/19/2022 CBC/C OMPLE TE BLD COUNT W/DIF F mean platelet volume 10.3 fL 9.0-12 .4 Not Available [facility] (Lab) [address] [place], [address], 05/19/2022 17:17:24 05/19/19 23 05/19/2022 CBC/C OMPLE TE BLD COUNT W/DIF F neutrophils 74.7 % 39.0-7 2.0 high Not Available [facility] (Lab) [address] [place], [address], 05/19/2022 17:17:24 05/19/19 23 05/19/2022 CBC/C OMPLE TE BLD COUNT W/DIF F lymphocytes 18.4 % 16.0-4 7.0 Not Available [facility] (Lab) [address] [place], [address], 05/19/2022 17:17:24 05/19/19 23 05/19/2022 CBC/C OMPLE TE BLD COUNT W/DIF F monocytes 5.2 % 5.0-12 .0 Not Available [facility] (Lab) [address] [place], [address], 05/19/2022 17:17:24 05/19/19 23 05/19/2022 CBC/C OMPLE TE BLD COUNT W/DIF F eosinophils 1.0 % 1.0-7. 0 Not Available [facility] (Lab) [address] [place], [address], 05/19/2022 17:17:24 05/19/19 23 05/19/2022 CBC/C OMPLE TE BLD COUNT W/DIF F basophils 0.4 % 0.0-2. 0 Not Available [facility] (Lab) [address] [place], [address], 05/19/2022 17:17:24 05/19/19 23 05/19/2022 CBC/C OMPLE TE BLD COUNT W/DIF F immature granulocytes 0.3 % 0.00-0 .50 Not Available [facility] (Lab) [address] [place], [address], 05/19/2022 17:17:24 05/19/19 23 05/19/2022 CBC/C OMPLE TE BLD COUNT W/DIF F neutrophils, absolute count 5.03 x10'3 /uL 1.5-8. 0 Not Available [facility] (Lab) [address] [place], [address], 05/19/2022 17:17:24 05/19/19 23 05/19/2022 CBC/C OMPLE TE BLD COUNT W/DIF F lymphocytes, absolute count 1.24 x10'3 /uL 1.07-3 .43 Not Available [facility] (Lab) [address] [place], [address], 05/19/2022 17:17:24 05/19/19 23 05/19/2022 CBC/C OMPLE TE BLD COUNT W/DIF F monocytes, absolute count 0.35 x10'3 /uL 0.29-0 .99 Not Available [facility] (Lab) [address] [place], [address], 05/19/2022 17:17:24 05/19/19 23 05/19/2022 CBC/C OMPLE TE BLD COUNT W/DIF F eosinophils, absolute count 0.07 x10'3 /uL 0.02-0 .53 Not Available [facility] (Lab) [address] [place], [address], 05/19/2022 17:17:24 05/19/19 23 05/19/2022 CBC/C OMPLE TE BLD COUNT W/DIF F basophils, absolute count 0.03 x10'3 /uL 0.01-0 .08 Not Available [facility] (Lab) [address] [place], [address], 05/19/2022 17:17:24 05/19/19 23 05/19/2022 CBC/C OMPLE TE BLD COUNT W/DIF F immature granulocytes ,absolute 0.02 x10'3 /uL 0.00-0 .05 Not Available [facility] (Lab) [address] [place], [address], 05/19/2022 17:17:24 05/19/19 23 05/19/2022 CBC/C OMPLE TE BLD COUNT W/DIF F nucleated red blood cells 0.0 % -0 Not Available [facility] (Lab) [address] [place], [address], 05/19/2022 17:17:24 05/19/19 23 05/19/2022 CBC/C OMPLE TE BLD COUNT W/DIF F NRBC# 0.00 x10'3 /uL Not Available [facility] (Lab) [address] [place], [address], 05/19/2022 17:17:24 05/19/19 23 05/19/2022 LIPID PANEL LDL cholesterol, calculated 67 mg/dL 0-130 NIH AYLIN NSUS REPOR T RECOM MENDA TIONS FOR LDL: ADULT CHILD LOW RISK <130 <110 (OPTI MAL LDL) <100 ----- BORDE RLINE : 130-1 59 ----- HIGH RISK: >160 >130 A TRIGL YCERI DE RESUL T >400 INVAL IDATE S THE CALCU LATIO N FOR LDL FRACT IONAT ION - THE LDL RESUL T WILL NOT BE REPOR MALACHI. Not Available [facility] (Lab) [address] [place], [address], 05/19/2022 16:22:58 05/19/19 23 05/19/2022 LIPID PANEL cholesterol 164 mg/dL 140-19 9 NIH AYLIN NSUS RECOM MENDA TION FOR ISAAC STERO L: ADULT CHILD LOW RISK: <200 <170 BORDE RLINE : <200- 239 ----- HIGH RISK: >240 >200 Not Available [facility] (Lab) [address] [place], [address], 05/19/2022 16:22:58 05/19/19 23 05/19/2022 LIPID PANEL triglyceride s 144 mg/dL 0-150 NIH AYLIN NSUS REPOR T RECOM MENDA TION FOR TRIGL YCERI MARU: ADULT CHILD LOW RISK: <150 ----- BODER LINE: 150-1 99 ----- HIGH RISK: >200 ----- Not Available [facility] (Lab) [address] [place], [address], 05/19/2022 16:22:58 05/19/19 23 05/19/2022 LIPID PANEL HDL cholesterol 68 mg/dL 40- Not Available [facility] (Lab) [address] [place], [address], 05/19/2022 16:22:58 05/19/19 23 05/19/2022 COMPR EHENS ANAHI METAB OLIC PANEL anion gap 14.4 mmol/ L 14-22 Not Available [facility] (Lab) [address] [place], [address], 05/19/2022 16:22:54 05/19/19 23 05/19/2022 COMPR EHENS ANAHI METAB OLIC PANEL sodium 142 mmol/ L 137-14 5 Not Available [facility] (Lab) [address] [facility] [place] [place], [address], 05/19/2022 16:22:54 05/19/19 23 05/19/2022 COMPR EHENS ANAHI METAB OLIC PANEL potassium 4.4 mmol/ L 3.5-5. 1 Not Available [facility] (Lab) [address] [place], [address], 05/19/2022 16:22:54 05/19/19 23 05/19/2022 COMPR EHENS ANAHI METAB OLIC PANEL chloride 105 mmol/ L 98-107 Not Available [facility] (Lab) [address] [place], [address], 05/19/2022 16:22:54 05/19/19 23 05/19/2022 COMPR EHENS ANAHI METAB OLIC PANEL carbon dioxide 27 mmol/ L 22-30 Not Available [facility] (Lab) [address] [place], [address], 05/19/2022 16:22:54 05/19/19 23 05/19/2022 COMPR EHENS ANAHI METAB OLIC PANEL glucose 100 mg/dL 70-99 high Not Available [facility] (Lab) [address] [place], [address], 05/19/2022 16:22:54 05/19/19 23 05/19/2022 COMPR EHENS ANAHI METAB OLIC PANEL BUN 9 mg/dL 8-19 Not Available [facility] (Lab) [address] [place], [address], 05/19/2022 16:22:54 05/19/19 23 05/19/2022 COMPR EHENS ANAHI METAB OLIC PANEL creatinine 0.63 mg/dL 0.66-1 .25 low Not Available [facility] (Lab) [address] [place], [address], 05/19/2022 16:22:54 05/19/19 23 05/19/2022 COMPR EHENS ANAHI METAB OLIC PANEL GFR >60 Refer ence Range : Grace ge GFR Healt hy Adult : >60 mL/mi n/1.7 3 m2 Chron ic Kidne y Disea se: 15-60 mL/mi n/1.7 3 m2 Kidne y Failu re: <15/m L/min /1.73 m2 www.n iddk. nih.g ov The MDRD study equat ion has not been valid ated in child brenna <18 years of age; pregn ant women ; the elder ly >85 years of age; or in some racia l or ethni c subgr oups, such as Hispa nics. Outsi de the valid ated katerin eters , estim ated GFR is less accur ate, requi ring clini rayna judgm ent on a case- by-ca se basis . Clini rayna inter preta tion for other races and ages must be made by the clini ernie. The MDRD study equat ion has not been valid ated for the evalu ation of serum creat inine relat ed to nutri basilio l statu s or medic ation usage . For perso ns <18 years of age, a pedia tric GFR calcu lator is avail able on the F websi te: https ://екатерина w.kid maine.o rg/pr ofess ional s/kdo qi/gf r_cal culat or Not Available [facility] (Lab) [address] [place], [address], 05/19/2022 16:22:54 05/19/19 23 05/19/2022 COMPR EHENS ANAHI METAB OLIC PANEL alkaline phosphatase 72 U/L 38-126 Not Available [facility] (Lab) [address] [place], [address], 05/19/2022 16:22:54 05/19/19 23 05/19/2022 COMPR EHENS ANAHI METAB OLIC PANEL alanine aminotransfe rase 13 U/L 0-35 Not Available [facility] (Lab) [address] [place], [address], 05/19/2022 16:22:54 05/19/19 23 05/19/2022 COMPR EHENS ANAHI METAB OLIC PANEL aspartate aminotransfe rase 24 U/L 15-37 Not Available [facility] (Lab) [address] [place], [address], 05/19/2022 16:22:54 05/19/19 23 05/19/2022 COMPR EHENS ANAHI METAB OLIC PANEL bilirubin, total 0.80 mg/dL 0.20-1 .30 Not Available [facility] (Lab) [address] [place], [address], 05/19/2022 16:22:54 05/19/19 23 05/19/2022 COMPR EHENS ANAHI METAB OLIC PANEL calcium 9.7 mg/dL 8.4-10 .2 Not Available [facility] (Lab) [address] [place], [address], 05/19/2022 16:22:54 05/19/19 23 05/19/2022 COMPR EHENS ANAHI METAB OLIC PANEL total protein 7.2 g/dL 6.3-8. 2 Not Available [facility] (Lab) [address] [place], [address], 05/19/2022 16:22:54 05/19/19 23 05/19/2022 COMPR EHENS ANAHI METAB OLIC PANEL albumin 4.5 g/dL 3.0-4. 4 high Not Available [facility] (Lab) [address] [place], [address], 05/19/2022 16:22:54 05/19/19 23 05/19/2022 COMPR EHENS ANAHI METAB OLIC PANEL globulin 2.7 g/dL 2.6-4. 2 Not Available [facility] (Lab) [address] [place], [address], 05/19/2022 16:22:54 05/19/19 23 05/19/2022 COMPR EHENS ANAHI METAB OLIC PANEL A/G ratio 1.7 ratio 1.0-2. 0 Not Available [facility] (Lab) [address] [place], [address], 05/19/2022 16:22:54 11/18/19 23 11/17/2022 CBC/C OMPLE TE BLD COUNT W/DIF F white blood cells 7.1 x10'3 /uL 4.2-10 .8 Not Available [facility] (Lab) [address] [place], [address], 11/17/2022 13:38:13 11/18/19 23 11/17/2022 CBC/C OMPLE TE BLD COUNT W/DIF F red blood cells 4.59 x10'6 /uL 3.80-5 .20 Not Available [facility] (Lab) [address] [place], [address], 11/17/2022 13:38:13 11/18/19 23 11/17/2022 CBC/C OMPLE TE BLD COUNT W/DIF F hemoglobin 14.3 g/dL 12.0-1 5.6 Not Available [facility] (Lab) [address] [place], [address], 11/17/2022 13:38:13 11/18/19 23 11/17/2022 CBC/C OMPLE TE BLD COUNT W/DIF F hematocrit 42.7 % 35.7-4 5.7 Not Available [facility] (Lab) [address] [place], [address], 11/17/2022 13:38:13 11/18/19 23 11/17/2022 CBC/C OMPLE TE BLD COUNT W/DIF F mean red cell volume 93.0 fL 82.0-9 9.0 Not Available [facility] (Lab) [address] [facility] [place], [address], 11/17/2022 13:38:13 11/18/19 23 11/17/2022 CBC/C OMPLE TE BLD COUNT W/DIF F mean red cell hemoglobin 31.2 pg 27.0-3 3.0 Not Available [facility] (Lab) [address] [place], [address], 11/17/2022 13:38:13 11/18/19 23 11/17/2022 CBC/C OMPLE TE BLD COUNT W/DIF F mean RBC HGB concentratio n 33.5 g/dL 31.0-3 6.0 Not Available [facility] (Lab) [address] [place], [address], 11/17/2022 13:38:13 11/18/1911/17/2022 CBC/C OMPLE TE BLD COUNT W/DIF F red cell distribution width 13.2 % 11.8-1 5.5 Not Available [facility] (Lab) [address] [place], [address], 11/17/2022 13:38:13 11/18/1911/17/2022 CBC/C OMPLE TE BLD COUNT W/DIF F platelets 312 x10'3 /uL 150-40 0 Not Available [facility] (Lab) [address] [place], [address], 11/17/2022 13:38:13 11/18/19 23 11/17/2022 CBC/C OMPLE TE BLD COUNT W/DIF F mean platelet volume 10.1 fL 9.0-12 .4 Not Available [facility] (Lab) [address] [place], [address], 11/17/2022 13:38:13 11/18/1911/17/2022 CBC/C OMPLE TE BLD COUNT W/DIF F neutrophils 65.6 % 39.0-7 2.0 Not Available [facility] (Lab) [address] [place], [address], 11/17/2022 13:38:13 11/18/1911/17/2022 CBC/C OMPLE TE BLD COUNT W/DIF F lymphocytes 24.9 % 16.0-4 7.0 Not Available [facility] (Lab) [address] [place], [address], 11/17/2022 13:38:13 11/18/1911/17/2022 CBC/C OMPLE TE BLD COUNT W/DIF F monocytes 6.1 % 5.0-12 .0 Not Available [facility] (Lab) [address] [place], [address], 11/17/2022 13:38:13 11/18/1911/17/2022 CBC/C OMPLE TE BLD COUNT W/DIF F eosinophils 2.5 % 1.0-7. 0 Not Available [facility] (Lab) [address] [place], [address], 11/17/2022 13:38:13 11/18/1911/17/2022 CBC/C OMPLE TE BLD COUNT W/DIF F basophils 0.6 % 0.0-2. 0 Not Available [facility] (Lab) [address] [place], [address], 11/17/2022 13:38:13 11/18/19 23 11/17/2022 CBC/C OMPLE TE BLD COUNT W/DIF F immature granulocytes 0.3 % 0.00-0 .50 Not Available [facility] (Lab) [address] [place], [address], 11/17/2022 13:38:13 11/18/19 23 11/17/2022 CBC/C OMPLE TE BLD COUNT W/DIF F neutrophils, absolute count 4.63 x10'3 /uL 1.5-8. 0 Not Available [facility] (Lab) [address] [place], [address], 11/17/2022 13:38:13 11/18/19 23 11/17/2022 CBC/C OMPLE TE BLD COUNT W/DIF F lymphocytes, absolute count 1.76 x10'3 /uL 1.07-3 .43 Not Available [facility] (Lab) [address] [place], [address], 11/17/2022 13:38:13 11/18/19 23 11/17/2022 CBC/C OMPLE TE BLD COUNT W/DIF F monocytes, absolute count 0.43 x10'3 /uL 0.29-0 .99 Not Available [facility] (Lab) [address] [place], [address], 11/17/2022 13:38:13 11/18/19 23 11/17/2022 CBC/C OMPLE TE BLD COUNT W/DIF F eosinophils, absolute count 0.18 x10'3 /uL 0.02-0 .53 Not Available [facility] (Lab) [address] [place], [address], 11/17/2022 13:38:13 11/18/19 23 11/17/2022 CBC/C OMPLE TE BLD COUNT W/DIF F basophils, absolute count 0.04 x10'3 /uL 0.01-0 .08 Not Available [facility] (Lab) [address] [place], [address], 11/17/2022 13:38:13 11/18/19 23 11/17/2022 CBC/C OMPLE TE BLD COUNT W/DIF F immature granulocytes ,absolute 0.02 x10'3 /uL 0.00-0 .05 Not Available [facility] (Lab) [address] [place], [address], 11/17/2022 13:38:13 11/18/19 23 11/17/2022 CBC/C OMPLE TE BLD COUNT W/DIF F nucleated red blood cells 0.0 % -0 Not Available [facility] (Lab) [address] [place], [address], 11/17/2022 13:38:13 11/18/19 23 11/17/2022 CBC/C OMPLE TE BLD COUNT W/DIF F NRBC# 0.00 x10'3 /uL Not Available [facility] (Lab) [address] [place], [address], 11/17/2022 13:38:13 11/18/19 23 11/17/2022 LIPID PANEL cholesterol 168 mg/dL 140-19 9 NIH AYLIN NSUS RECOM MENDA TION FOR ISAAC STERO L: ADULT CHILD LOW RISK: <200 <170 BORDE RLINE : <200- 239 ----- HIGH RISK: >240 >200 Not Available [facility] (Lab) [address] [place], [address], 11/17/2022 14:27:16 11/18/1911/17/2022 LIPID PANEL triglyceride s 211 mg/dL 0-150 high NIH AYLIN NSUS REPOR T RECOM MENDA TION FOR TRIGL YCERI MARU: ADULT CHILD LOW RISK: <150 ----- BODER LINE: 150-1 99 ----- HIGH RISK: >200 ----- Not Available [facility] (Lab) [address] [place], [address], 11/17/2022 14:27:16 11/18/19 23 11/17/2022 LIPID PANEL HDL cholesterol 63 mg/dL 40- Not Available [facility] (Lab) [address] [place], [address], 11/17/2022 14:27:16 11/18/19 23 11/17/2022 LIPID PANEL LDL cholesterol, calculated 63 mg/dL 0-130 NIH AYLIN NSUS REPOR T RECOM MENDA TIONS FOR LDL: ADULT CHILD LOW RISK <130 <110 (OPTI MAL LDL) <100 ----- BORDE RLINE : 130-1 59 ----- HIGH RISK: >160 >130 A TRIGL YCERI DE RESUL T >400 INVAL IDATE S THE CALCU LATIO N FOR LDL FRACT IONAT ION - THE LDL RESUL T WILL NOT BE REPOR MALACHI. Not Available [facility] (Lab) [address] [place], [address], 11/17/2022 14:27:16 11/18/19 23 11/17/2022 COMPR EHENS ANAHI METAB OLIC PANEL sodium 139 mmol/ L 137-14 5 Not Available [facility] (Lab) [address] [place], [address], 11/17/2022 14:27:21 11/18/19 23 11/17/2022 COMPR EHENS ANAHI METAB OLIC PANEL potassium 4.2 mmol/ L 3.5-5. 1 Not Available [facility] (Lab) [address] [place], [address], 11/17/2022 14:27:21 11/18/19 23 11/17/2022 COMPR EHENS ANAHI METAB OLIC PANEL chloride 102 mmol/ L 98-107 Not Available [facility] (Lab) [address] [place], [address], 11/17/2022 14:27:21 11/18/19 23 11/17/2022 COMPR EHENS ANAHI METAB OLIC PANEL carbon dioxide 27 mmol/ L 22-30 Not Available [facility] (Lab) [address] [place], [address], 11/17/2022 14:27:21 11/18/19 23 11/17/2022 COMPR EHENS ANAHI METAB OLIC PANEL anion gap 14.2 mmol/ L 14-22 Not Available [facility] (Lab) [address] [place], [address], 11/17/2022 14:27:21 11/18/19 23 11/17/2022 COMPR EHENS ANAHI METAB OLIC PANEL glucose 109 mg/dL 70-99 high Not Available [facility] (Lab) [address] [place], [address], 11/17/2022 14:27:21 11/18/19 23 11/17/2022 COMPR EHENS ANAHI METAB OLIC PANEL BUN 10 mg/dL 8-19 Not Available [facility] (Lab) [address] [place], [address], 11/17/2022 14:27:21 11/18/19 23 11/17/2022 COMPR EHENS ANAHI METAB OLIC PANEL creatinine 0.72 mg/dL 0.66-1 .25 Not Available [facility] (Lab) [address] [place], [address], 11/17/2022 14:27:21 11/18/19 23 11/17/2022 COMPR EHENS ANAHI METAB OLIC PANEL GFR >60 Refer ence Range : Grace ge GFR Healt hy Adult : >60 mL/mi n/1.7 3 m2 Chron ic Kidne y Disea se: 15-60 mL/mi n/1.7 3 m2 Kidne y Failu re: <15/m L/min /1.73 m2 www.n iddk. nih.g ov The MDRD study equat ion has not been valid ated in child brenna <18 years of age; pregn ant women ; the elder ly >85 years of age; or in some racia l or ethni c subgr oups, such as Hispa nics. Outsi de the valid ated katerin eters , estim ated GFR is less accur ate, requi ring clini rayna judgm ent on a case- by-ca se basis . Clini rayna inter preta tion for other races and ages must be made by the clini ernie. The MDRD study equat ion has not been valid ated for the evalu ation of serum creat inine relat ed to nutri basilio l statu s or medic ation usage . For perso ns <18 years of age, a pedia tric GFR calcu lator is avail able on the [facility] websi te: https ://екатерина w.elizabeth grove.o rg/pr ofess ional s/kdo qi/gf r_cal culat or Not Available [facility] (Lab) [address] [place], [address], 11/17/2022 14:27:21 11/18/19 23 11/17/2022 COMPR EHENS ANAHI METAB OLIC PANEL alkaline phosphatase 64 U/L 38-126 Not Available [facility] (Lab) [address] [place], [address], 11/17/2022 14:27:21 11/18/19 23 11/17/2022 COMPR EHENS ANAHI METAB OLIC PANEL alanine aminotransfe rase 11 U/L 0-35 Not Available [facility] (Lab) [address] [place], [address], 11/17/2022 14:27:21 11/18/19 23 11/17/2022 COMPR EHENS ANAHI METAB OLIC PANEL aspartate aminotransfe rase 21 U/L 15-37 Not Available [facility] (Lab) [address] [place], [address], 11/17/2022 14:27:21 11/18/19 23 11/17/2022 COMPR EHENS ANAHI METAB OLIC PANEL bilirubin, total 0.50 mg/dL 0.20-1 .30 Not Available [facility] (Lab) [address] [place], [address], 11/17/2022 14:27:21 11/18/19 23 11/17/2022 COMPR EHENS ANAHI METAB OLIC PANEL calcium 9.4 mg/dL 8.4-10 .2 Not Available [facility] (Lab) [address] [place], [address], 11/17/2022 14:27:21 11/18/19 23 11/17/2022 COMPR EHENS ANAHI METAB OLIC PANEL total protein 7.6 g/dL 6.3-8. 2 Not Available [facility] (Lab) [address] [place], [address], 11/17/2022 14:27:21 11/18/19 23 11/17/2022 COMPR EHENS ANAHI METAB OLIC PANEL albumin 4.6 g/dL 3.0-4. 4 high Not Available [facility] (Lab) [address] [place], [address], 11/17/2022 14:27:21 11/18/19 23 11/17/2022 COMPR EHENS ANAHI METAB OLIC PANEL globulin 3.0 g/dL 2.6-4. 2 Not Available [facility] (Lab) [address] [place], [address], 11/17/2022 14:27:21 11/18/19 23 11/17/2022 COMPR EHENS ANAHI METAB OLIC PANEL A/G ratio 1.5 ratio 1.0-2. 0 Not Available [facility] (Lab) [address] [place], [address], 11/17/2022 14:27:21 11/30/19 24 11/30/2023 CBC/C OMPLE TE BLD COUNT W/DIF F white blood cells 8.1 x10'3 /uL 4.2-10 .8 Not Available [facility] (Lab) [address] [place], [address], 11/30/2023 14:06:45 11/30/19 24 11/30/2023 CBC/C OMPLE TE BLD COUNT W/DIF F red blood cells 4.03 x10'6 /uL 3.80-5 .20 Not Available [facility] (Lab) [address] [place], [address], 11/30/2023 14:06:45 11/30/19 24 11/30/2023 CBC/C OMPLE TE BLD COUNT W/DIF F hemoglobin 12.2 g/dL 12.0-1 5.6 Not Available [facility] (Lab) [address] [place], [address], 11/30/2023 14:06:45 11/30/19 24 11/30/2023 CBC/C OMPLE TE BLD COUNT W/DIF F hematocrit 38.7 % 35.7-4 5.7 Not Available [facility] (Lab) [address] [place], [address], 11/30/2023 14:06:45 11/30/19 24 11/30/2023 CBC/C OMPLE TE BLD COUNT W/DIF F mean red cell volume 96.0 fL 82.0-9 9.0 Not Available [facility] (Lab) [address] [place], [address], 11/30/2023 14:06:45 11/30/19 24 11/30/2023 CBC/C OMPLE TE BLD COUNT W/DIF F mean red cell hemoglobin 30.3 pg 27.0-3 3.0 Not Available [facility] (Lab) [address] [place], [address], 11/30/2023 14:06:45 11/30/19 24 11/30/2023 CBC/C OMPLE TE BLD COUNT W/DIF F mean RBC HGB concentratio n 31.5 g/dL 31.0-3 6.0 Not Available [facility] (Lab) [address] [place], [address], 11/30/2023 14:06:45 11/30/19 24 11/30/2023 CBC/C OMPLE TE BLD COUNT W/DIF F red cell distribution width 13.2 % 11.8-1 5.5 Not Available [facility] (Lab) [address] [place], [address], 11/30/2023 14:06:45 11/30/19 24 11/30/2023 CBC/C OMPLE TE BLD COUNT W/DIF F platelets 340 x10'3 /uL 150-40 0 Not Available [facility] (Lab) [address] [place], [address], 11/30/2023 14:06:45 11/30/19 24 11/30/2023 CBC/C OMPLE TE BLD COUNT W/DIF F mean platelet volume 10.1 fL 9.0-12 .4 Not Available [facility] (Lab) [address] [place], [address], 11/30/2023 14:06:45 11/30/19 24 11/30/2023 CBC/C OMPLE TE BLD COUNT W/DIF F neutrophils 69.4 % 39.0-7 2.0 Not Available [facility] (Lab) [address] [place], [address], 11/30/2023 14:06:45 11/30/19 24 11/30/2023 CBC/C OMPLE TE BLD COUNT W/DIF F lymphocytes 14.0 % 16.0-4 7.0 low Not Available [facility] (Lab) [address] [place], [address], 11/30/2023 14:06:45 11/30/19 24 11/30/2023 CBC/C OMPLE TE BLD COUNT W/DIF F monocytes 7.6 % 5.0-12 .0 Not Available [facility] (Lab) [address] [place], [address], 11/30/2023 14:06:45 11/30/19 24 11/30/2023 CBC/C OMPLE TE BLD COUNT W/DIF F eosinophils 7.9 % 1.0-7. 0 high Not Available [facility] (Lab) [address] [place], [address], 11/30/2023 14:06:45 11/30/19 24 11/30/2023 CBC/C OMPLE TE BLD COUNT W/DIF F basophils 0.6 % 0.0-2. 0 Not Available [facility] (Lab) [address] [place], [address], 11/30/2023 14:06:45 11/30/19 24 11/30/2023 CBC/C OMPLE TE BLD COUNT W/DIF F immature granulocytes 0.5 % 0.00-0 .50 Not Available [facility] (Lab) [address] [place], [address], 11/30/2023 14:06:45 11/30/19 24 11/30/2023 CBC/C OMPLE TE BLD COUNT W/DIF F neutrophils, absolute count 5.65 x10'3 /uL 1.5-8. 0 Not Available [facility] (Lab) [address] [place], [address], 11/30/2023 14:06:45 11/30/19 24 11/30/2023 CBC/C OMPLE TE BLD COUNT W/DIF F lymphocytes, absolute count 1.14 x10'3 /uL 1.07-3 .43 Not Available [facility] (Lab) [address] [place], [address], 11/30/2023 14:06:45 11/30/19 24 11/30/2023 CBC/C OMPLE TE BLD COUNT W/DIF F monocytes, absolute count 0.62 x10'3 /uL 0.29-0 .99 Not Available [facility] (Lab) [address] [place], [address], 11/30/2023 14:06:45 11/30/19 24 11/30/2023 CBC/C OMPLE TE BLD COUNT W/DIF F eosinophils, absolute count 0.64 x10'3 /uL 0.02-0 .53 high Not Available [facility] (Lab) [address] [place], [address], 11/30/2023 14:06:45 11/30/19 24 11/30/2023 CBC/C OMPLE TE BLD COUNT W/DIF F basophils, absolute count 0.05 x10'3 /uL 0.01-0 .08 Not Available [facility] (Lab) [address] [place], [address], 11/30/2023 14:06:45 11/30/19 24 11/30/2023 CBC/C OMPLE TE BLD COUNT W/DIF F immature granulocytes ,absolute 0.04 x10'3 /uL 0.00-0 .05 Not Available [facility] (Lab) [address] [place], [address], 11/30/2023 14:06:45 11/30/19 24 11/30/2023 CBC/C OMPLE TE BLD COUNT W/DIF F nucleated red blood cells 0.0 % -0 Not Available [facility] (Lab) [address] [place], [address], 11/30/2023 14:06:45 11/30/19 24 11/30/2023 CBC/C OMPLE TE BLD COUNT W/DIF F NRBC# 0.00 x10'3 /uL Not Available [facility] (Lab) [address] [place], [address], 11/30/2023 14:06:45 11/30/19 24 11/30/2023 LIPID PANEL cholesterol 138 mg/dL 140-19 9 low NIH AYLIN NSUS RECOM MENDA TION FOR ISAAC STERO L: ADULT CHILD LOW RISK: <200 <170 BORDE RLINE : <200- 239 ----- HIGH RISK: >240 >200 Not Available [facility] (Lab) [address] [place], [address], 11/30/2023 23:40:16 11/30/19 24 11/30/2023 LIPID PANEL triglyceride s 136 mg/dL 0-150 NIH AYLIN NSUS REPOR T RECOM MENDA TION FOR TRIGL YCERI MARU: ADULT CHILD LOW RISK: <150 ----- BODER LINE: 150-1 99 ----- HIGH RISK: >200 ----- Not Available [facility] (Lab) [address] [place], [address], 11/30/2023 23:40:16 11/30/19 24 11/30/2023 LIPID PANEL HDL cholesterol 65 mg/dL 40- Not Available [facility] (Lab) [address] [place], [address], 11/30/2023 23:40:16 11/30/19 24 11/30/2023 LIPID PANEL LDL cholesterol, calculated 46 mg/dL 0-130 NIH AYLIN NSUS REPOR T RECOM MENDA TIONS FOR LDL: ADULT CHILD LOW RISK <130 <110 (OPTI MAL LDL) <100 ----- BORDE RLINE : 130-1 59 ----- HIGH RISK: >160 >130 A TRIGL YCERI DE RESUL T >400 INVAL IDATE S THE CALCU LATIO N FOR LDL FRACT IONAT ION - THE LDL RESUL T WILL NOT BE REPOR MALACHI. Not Available [facility] (Lab) [address] [place], [address], 11/30/2023 23:40:16 11/30/19 24 11/30/2023 COMPR EHENS ANAHI METAB OLIC PANEL sodium 139 mmol/ L 137-14 5 Not Available [facility] (Lab) [address] [place], [address], 11/30/2023 20:28:29 11/30/19 24 11/30/2023 COMPR EHENS ANAHI METAB OLIC PANEL potassium 3.8 mmol/ L 3.5-5. 1 Not Available [facility] (Lab) [address] [place], [address], 11/30/2023 20:28:29 11/30/19 24 11/30/2023 COMPR EHENS ANAHI METAB OLIC PANEL chloride 107 mmol/ L 98-107 Not Available [facility] (Lab) [address] [place], [address], 11/30/2023 20:28:29 11/30/19 24 11/30/2023 COMPR EHENS ANAHI METAB OLIC PANEL carbon dioxide 26 mmol/ L 22-30 Not Available [facility] (Lab) [address] [place], [address], 11/30/2023 20:28:29 11/30/19 24 11/30/2023 COMPR EHENS ANAHI METAB OLIC PANEL anion gap 9.8 mmol/ L 14-22 low Not Available [facility] (Lab) [address] [place], [address], 11/30/2023 20:28:29 11/30/19 24 11/30/2023 COMPR EHENS ANAHI METAB OLIC PANEL glucose 122 mg/dL 70-99 high Not Available [facility] (Lab) [address] [place], [address], 11/30/2023 20:28:29 11/30/19 24 11/30/2023 COMPR EHENS ANAHI METAB OLIC PANEL BUN 13 mg/dL 8-19 Not Available [facility] (Lab) [address] [place], [address], 11/30/2023 20:28:29 11/30/19 24 11/30/2023 COMPR EHENS ANAHI METAB OLIC PANEL creatinine 0.65 mg/dL 0.66-1 .25 low Not Available [facility] (Lab) [address] [place], [address], 11/30/2023 20:28:29 11/30/19 24 11/30/2023 COMPR EHENS ANAHI METAB OLIC PANEL GFR >60 Refer ence Range : Grace ge GFR Healt hy Adult : >60 mL/mi n/1.7 3 m2 Chron ic Kidne y Disea se: 15-60 mL/mi n/1.7 3 m2 Kidne y Failu re: <15/m L/min /1.73 m2 www.n iddk. nih.g ov The MDRD study equat ion has not been valid ated in child brenna <18 years of age; pregn ant women ; the elder ly >85 years of age; or in some racia l or ethni c subgr oups, such as Hispa nics. Outsi de the valid ated katerin eters , estim ated GFR is less accur ate, requi ring clini rayna judgm ent on a case- by-ca se basis . Clini rayna inter preta tion for other races and ages must be made by the clini ernie. The MDRD study equat ion has not been valid ated for the evalu ation of serum creat inine relat ed to nutri basilio l statu s or medic ation usage . For perso ns <18 years of age, a pedia tric GFR calcu lator is avail able on the [facility] websi te: https ://екатерина grove.varsha lord/pr ofess ional s/kdo qi/gf r_cal culat or Not Available [facility] (Lab) [address] [place], [address], 11/30/2023 20:28:29 11/30/19 24 11/30/2023 COMPR EHENS ANAHI METAB OLIC PANEL alkaline phosphatase 106 U/L 38-126 Not Available [facility] (Lab) [address] [place], [address], 11/30/2023 20:28:29 11/30/19 24 11/30/2023 COMPR EHENS ANAHI METAB OLIC PANEL alanine aminotransfe rase 10 U/L 0-35 Not Available [facility] (Lab) [address] [place], [address], 11/30/2023 20:28:29 11/30/19 24 11/30/2023 COMPR EHENS ANAHI METAB OLIC PANEL aspartate aminotransfe rase 21 U/L 15-37 Not Available [facility] (Lab) [address] [place], [address], 11/30/2023 20:28:29 11/30/19 24 11/30/2023 COMPR EHENS ANAHI METAB OLIC PANEL bilirubin, total 0.40 mg/dL 0.20-1 .30 Not Available [facility] (Lab) [address] [place], [address], 11/30/2023 20:28:29 11/30/19 24 11/30/2023 COMPR EHENS ANAHI METAB OLIC PANEL calcium 9.8 mg/dL 8.4-10 .2 Not Available [facility] (Lab) [address] [place], [address], 11/30/2023 20:28:29 11/30/19 24 11/30/2023 COMPR EHENS ANAHI METAB OLIC PANEL total protein 6.5 g/dL 6.3-8. 2 Not Available [facility] (Lab) [address] [place], [address], 11/30/2023 20:28:29 11/30/19 24 11/30/2023 COMPR EHENS ANAHI METAB OLIC PANEL albumin 3.8 g/dL 3.0-4. 4 Not Available [facility] (Lab) [address] [place], [address], 11/30/2023 20:28:29 11/30/19 24 11/30/2023 COMPR EHENS ANAHI METAB OLIC PANEL globulin 2.7 g/dL 2.6-4. 2 Not Available [facility] (Lab) [address] [place], [address], 11/30/2023 20:28:29 11/30/19 24 11/30/2023 COMPR EHENS ANAHI METAB OLIC PANEL A/G ratio 1.4 ratio 1.0-2. 0 Not Available [facility] (Lab) [address] [place], [address], 11/30/2023 20:28:29 11/30/19 24 11/30/2023 BNP/B -NATR IURET IC PEPTI DE BNP 17 pg/mL 4-125 Not Available [facility] (Lab) [address] [place], [address], 11/30/2023 20:46:26 01/26/20 24 01/26/2024 BASIC METAB OLIC PANEL sodium 137 mmol/ L 137-14 5 Not Available [facility] (Lab) [address] [place], [address], 01/26/2024 16:42:01 01/26/20 24 01/26/2024 BASIC METAB OLIC PANEL potassium 3.5 mmol/ L 3.5-5. 1 Not Available [facility] (Lab) [address] [place], [address], 01/26/2024 16:42:01 01/26/20 24 01/26/2024 BASIC METAB OLIC PANEL chloride 101 mmol/ L 98-107 Not Available [facility] (Lab) [address] [place], [address], 01/26/2024 16:42:01 01/26/20 24 01/26/2024 BASIC METAB OLIC PANEL carbon dioxide 28 mmol/ L 22-30 Not Available [facility] (Lab) [address] [place], [address], 01/26/2024 16:42:01 01/26/20 24 01/26/2024 BASIC METAB OLIC PANEL anion gap 11.5 mmol/ L 14-22 low Not Available [facility] (Lab) [address] [place], [address], 01/26/2024 16:42:01 01/26/20 24 01/26/2024 BASIC METAB OLIC PANEL glucose 109 mg/dL 70-99 high Not Available [facility] (Lab) [address] [place], [address], 01/26/2024 16:42:01 01/26/20 24 01/26/2024 BASIC METAB OLIC PANEL BUN 10 mg/dL 8-19 Not Available [facility] (Lab) [address] [place], [address], 01/26/2024 16:42:01 01/26/20 24 01/26/2024 BASIC METAB OLIC PANEL creatinine 0.71 mg/dL 0.66-1 .25 Not Available [facility] (Lab) [address] [place], [address], 01/26/2024 16:42:01 01/26/2001/26/2024 BASIC METAB OLIC PANEL GFR >60 Refer ence Range : Grace ge GFR Healt hy Adult : >60 mL/mi n/1.7 3 m2 Chron ic Kidne y Disea se: 15-60 mL/mi n/1.7 3 m2 Kidne y Failu re: <15/m L/min /1.73 m2 www.n iddk. nih.g ov The MDRD study equat ion has not been valid ated in child brenna <18 years of age; pregn ant women ; the elder ly >85 years of age; or in some racia l or ethni c subgr oups, such as Hispa nics. Outsi de the valid ated katerin eters , estim ated GFR is less accur ate, requi ring clini rayna judgm ent on a case- by-ca se basis . Clini rayna inter preta tion for other races and ages must be made by the clini ernie. The MDRD study equat ion has not been valid ated for the evalu ation of serum creat inine relat ed to nutri basilio l statu s or medic ation usage . For perso ns <18 years of age, a pedia tric GFR calcu lator is avail able on the [facility] websi te: https ://ww w.kid maine.o rg/pr ofess ional s/kdo qi/gf r_cal culat or Not Available [facility] (Lab) [address] [place], [address], 01/26/2024 16:42:01 01/26/20 24 01/26/2024 BASIC METAB OLIC PANEL calcium 10.1 mg/dL 8.4-10 .2 Not Available [facility] (Lab) [address] [place], [address], 01/26/2024 16:42:01 11/25/19 23 XR, knee No observ ation record ed. [id number] [email or web address] [address], [place], [address], 11/24/2022 11:22:59 12/29/19 24 12/28/2023 DEXA, axial skele ton [facility] [address] [place] [address] [phone] Patien t Name: LOKESH ROMAN Y Access ion #: [id number] Sex: F : 1939 1 Dictat ed By: Alek dotson Attend ing Physic seymour: REID PRYOR [facility] Physic seymour: REID PRYOR Exam Date: 2023 14:01 PM Exam Name: XR DEXA-H IPS PELVIS SPINE Admitt ing Diagno sis(es ): INDICA TION: 83 years old, Female ; post menopa usal state. DEXA SCAN: BONE DENSIT Y REPORT : AP SPINE (L1-L4 ) : T Score: -0.9 LEFT FEMORA L NECK : T Score: -2.0 RT FEMORA L NECK : T Score: - 2.4 LEFT HIP TOTAL : T Score: -1.8 RT HIP TOTAL : T Score: -2.5 TOTAL BILAT HIP AVG: T Score: -2.2 IMPRES OBED: 1. Lumbos acral spine: Normal 2. Hips: Osteop enia, border line for osteop orosis right hip. ------ ------ ------ ------ ------ ------ ------ ------ ----- *FRAX versio n 3.08. Fractu re probab ility calcul ated for an untrea malachi patien t. Fractu re probab ility may be lower if the patien t has receiv ed treatm ent. T-scor e: compar aline by elio kat deviat ion (SD) to a young adult popula andrzejonamada for sex and ethnic ity (used for postme nopaus al women and men >50 years) and classi fied by WHO criter ia. Page 1 [facility] [address] [place] [address] Patien t Name: LOKESH ROMAN Access ion #: [id number] Sex: F : 1939 1 Dictat ed By: Alek dotson Attend ing Physic seymour: MAR JOLLY [facility] Physic seymour: REID PRYOR Exam Date: 2023 14:01 PM Exam Name: XR DEXA-H IPS PELVIS SPINE Admitt ing Diagno sis(es ): -1.0: normal <-1.0 to >-2.5: osteop enia -2.5: osteop orosis -2.5 plus fragil ity fractu re: severe osteop orosis Z-scor e: compar ed by SD to an age, sex, and ethnic ity popula tion (used for premen opausa l women, men <50 years, and childr en instea d of T-scor e WHO criter ia 4) <-2.0: below expect ed range/ low bone densit y for age, and a cause should be sought Electr onical ly Signed by: Alek dotson at 2023 01:48: 55 AM Page 2 [facility] (Imaging) [address] [place], [address], 01/04/2024 14:53:53 Result Notes Documentation Provider Name and Address Organization Details Recorded Time Dexa, Axial Skeleton : [facility] [address] [place] [address] Patient Name: SUJATHA GLEZ Sex: F : 1940 Dictated By: Alek Ceballos Attending Physician: JG PRYOR Ordering Physician: JG PRYOR Exam Date: 12/28/2023 14:01 PM Exam Name: XR DEXA-HIPS PELVIS SPINE Admitting Diagnosis(es): INDICATION: 83 years old, Female; post menopausal state. DEXA SCAN: BONE DENSITY REPORT: AP SPINE (L1-L4) : T Score: -0.9 LEFT FEMORAL NECK : T Score: -2.0 RT FEMORAL NECK : T Score: - 2.4 LEFT HIP TOTAL : T Score: -1.8 RT HIP TOTAL : T Score: -2.5 TOTAL BILAT HIP AVG: T Score: -2.2 IMPRESSION: 1. Lumbosacral spine: Normal 2. Hips: Osteopenia, borderline for osteoporosis right hip. --- *FRAX version 3.08. Fracture probability calculated for an untreated patient. Fracture probability may be lower if the patient has received treatment. T-score: comparison by standard deviation (SD) to a young adult population, matched for sex and ethnicity (used for postmenopausal women and men >50 years) and classified by WHO criteria. Page [address] [facility] [address] [place] [address] Patient Name: SUJATHA GELZ Sex: F : 1940 Dictated By: Alek Ceballos Attending Physician: MAR GREGORIO Ordering Physician: JG PRYOR Exam Date: 12/28/2023 14:01 PM Exam Name: XR DEXA-HIPS PELVIS SPINE Admitting Diagnosis(es): -1.0: normal <-1.0 to >-2.5: osteopenia -2.5: osteoporosis -2.5 plus fragility fracture: severe osteoporosis Z-score: compared by SD to an age, sex, and ethnicity population (used for premenopausal women, men <50 years, and children instead of T-score WHO criteria 4) <-2.0: below expected range/low bone density for age, and a cause should be sought Page 2 [place] [employer] [facility] 01/04/2024 14:53:53 Problems Name Problem SNOMED Code Status Onset Date Resolution Date Notes Provider Name and Address Organization Details Recorded Time Dyslipide melanie 040945225 Active Not Available [facility] 4 14:59:55 Lower respirato ry tract infection 57555386 Completed Not Available [facility] 3 02:55:32 Essential hypertens ion 25040370 Active Not Available [facility] 4 14:59:55 Chronic rhinitis 99722462 Completed Not Available [facility] 3 02:55:32 Acute sinusitis 72936836 Active 2021 Not Available [facility] 4 14:59:55 Cough 18363649 Active 2021 Not Available [facility] 4 14:59:55 Edema of lower extremity 677667312 Active 2021 Not Available [facility] 4 14:59:55 Fatigue 09311406 Active 2021 Not Available [facility] 4 14:59:55 Allergic rhinitis 29390297 Active 2021 Not Available [facility] 4 14:59:55 Low back pain 473817256 Active 2021 Not Available [facility] [facility] 4 14:59:55 Hyperlipi demia [id number] Active 2022 Not Available [facility] 4 14:59:55 Upper respirato ry infection [id number] Active 2022 Not Available [facility] 4 14:59:55 Pain of bilateral knee joints 05087927820 4104 Active 2022 Not Available [facility] 4 14:59:55 Bilateral osteoarth ritis of knees [id number] 9107 Active 2022 Not Available [facility] 4 14:59:55 Notes:Some problems listed i n Document: #[id number] could not be added to this patient's chart. Please review this document and add these problems to the patient's chart manually as needed. Problem Notes Documentation Provider Name and Address Organization Details Recorded Time Orthopedic Surgeon Consult Note : [facility] [address] [place] [address] [address], [facility] [address]BPIPQLM, [place] (id #[id number], : 1940) Documents sent via fax will include the following message: This fax may contain sensitive and confidential personal health information that is being sent for the sole use of the intended recipient. Unintended recipients are directed to securely destroy any materials received. You are hereby notified that the unauthorized disclosure or other unlawful use of this fax or any personal health information is prohibited. To the extent patient information contained in this fax is subject to 42 CFR Part 2, this regulation prohibits unauthorized disclosure of these records. If you received this fax in error, please visit [email or web address] yFax to notify the sender and confirm that the information will be destroyed. If you do not have internet access, please call to notify the sender and confirm that the information will be destroyed. Thank you for your attention and cooperation. [ID:[id number]] , Date: 11/24/2022RE: Twila Fall MD, I would like to thank you for referring Sujatha Glez to me for consultation and evaluation of Bilateral knee pain , on 11/24/2022. I have enclosed a copy of the office assessment and plan for your records. Once again, thank you for allowing me to participate in the care of this patient. Sincerely, Electronically Signed by: MYAH MOHAMUD MD Assessment/PlanPatient presents arthritis both knees. She has fesr-li-cgoj arthritis of her knees and varus deformity. She does not have much history of treatment for arthritis of her knees she basically says she has takes aspirin or Advil or what ever is on her dresser and treated to confirm that way. She walks with an antalgic gait has motion from about 3-100 degrees varus significant varus deformity grinding crepitus and pain. Her ankles are really quite small. Clearly she has arthritis in both knees. At some point she probably would benefit from knee replacement surgery. She is not interested at this time. I injected both knees with 20 mg Kenalog 4 cc 1% lidocaine. For prescription drug management will try prednisone taper for pain and inflammation. She declined the therapy. I will see her back in a month for follow-up discussed. 1. Pain of bilateral knee wfhousE61.561: Pain in right knee M25.562: Pain in left knee XR, KNEE Kenalog 10 mg/mL suspension for injection - Take 40 mg by injection route. Quantity: (40) mg Lot #: [id number] Route: Injection Exp Date: 01/18/2025 Administered INJECTION/ASPIRATION JOINT/BURSA (PROC) - Note to Provider: in office procedure, administered by providerPlace of service: OFFICE ropivacaine (PF) 5 mg/mL (0.5 %) injection solution - Take 40 mg by injection route. Quantity: (40) mg Lot #: [id number] Route: Injection Exp Date: 11/19/2023 Administered diclofenac sodium 75 mg tablet,delayed release - Take 1 tablet(s) twice a day by oral route. Qty: (60) tablet Refills: 0 Pharmacy: [facility][id number] 2. Bilateral osteoarthritis of ceyciQ01.0: Bilateral primary osteoarthritis of knee XR, KNEE AP lateral skyline view both knees demonstrate inco-kw-njcy changes significant varus deformity. No fracture lesions masses appreciated. Return to Office Myah Mohamud MD for Any 5 at [facility] Ortho [place] on 12/29/2022 at 08:55 AM Jg Pryor MD for Any 15 at [facility] Internal Med [place] [facility] on 03/16/2023 at 10:00 AM Norah Rios CAT[employer] null, [place] - [facility] 01/07/2023 09:56:59 Orthopedic Surgeon Consult Note : [facility] [address], [place] [address]MCDAGMT, Beverly (id #[id number], : 1940) Documents sent via fax will include the following message: This fax may contain sensitive and confidential personal health information that is being sent for the sole use of the intended recipient. Unintended recipients are directed to securely destroy any materials received. You are hereby notified that the unauthorized disclosure or other unlawful use of this fax or any personal health information is prohibited. To the extent patient information contained in this fax is subject to 42 CFR Part 2, this regulation prohibits unauthorized disclosure of these records. If you received this fax in error, please visit [email or web address] yFax to notify the sender and confirm that the information will be destroyed. If you do not have internet access, please call to notify the sender and confirm that the information will be destroyed. Thank you for your attention and cooperation. [ID:[id number]] , Date: 12/29/2022RE: Twila Fall MD, I would like to thank you for referring Sujatha Glez to me for consultation and evaluation of Followup: Bilateral osteoarthritis of knees Followup: Pain of bilateral knee joints , on 12/29/2022. I have enclosed a copy of the office assessment and plan for your records. Once again, thank you for allowing me to participate in the care of this patient. Sincerely, Electronically Signed by: MYAH MOHAMUD MD Assessment/PlanPatient returns knee pain right left. The right 1 got a little better unfortunately the left foot continues to hurt a fair bit. She is clearly not reached her treatment goals at this point. We will continue with the exercises. For prescription drug management will try Voltaren for pain and inflammation. I will see her back in a month for follow-up if she does get better we talked about hyaluronic acid versus surgery. Surgery would be a bit high risk for her. 1. Bilateral osteoarthritis of vnijcH46.0: Bilateral primary osteoarthritis of knee diclofenac sodium 75 mg tablet,delayed release - Take 1 tablet(s) twice a day by oral route. Qty: (60) tablet Refills: 0 Pharmacy: [facility] #[id number] 2. Pain of bilateral knee wvwzxgH62.561: Pain in right knee M25.562: Pain in left knee Return to Office Jg Pryor MD for Any 15 at [facility] Internal Med [place] 15 on 03/16/2023 at 10:00 AM ETHEL [place], [place] [email or web address] [facility] [employer] 01/07/2023 09:59:15 Procedures Surgical History Date Name Laterality Status Provider Name and Address Organization Details Recorded Time 11/25/19 23 Ortho - Cortisone Injection completed Myah Mohamud MD [address] [place] [address], [facility] [address], [place], [address], [facility] [employer] 11/24/2022 11:18:08 11/18/19 23 Medicare Wellness CPT Code, subsequent completed Alana Frost RN [place] [email or web address] 11/17/2022 11:46:19 Total hysterectomy completed Not Available [facility] 06/18/2022 02:48:31 Cholecystectomy completed Not Available [facility] 06/18/2022 02:48:31 Imaging Results None recorded. Procedure Notes None recorded. Medical Equipment None Reported. Allergies Allergen ID Allergen Name Allergen Category Reaction Reaction Severity Criticality Documentation Date Start Date Code Code System Note Provider Name and Address Organization Details Recorded Time 1755 clarithro mycin medicatio n tachycard ia Not available Not available 06/18/202208362 RxNorm Not Available [facility] 03:04:07 Medications Name Sig Start Date Stop Date Status Note LastModified by Organization Details LastModified Time amoxicill in 500 mg capsule Take 1 capsule 3 times a day by oral route x7 days 11/17 completed Not Available Not Available Not Available prednison e 10 mg tablet 3x 2 days, 2 x 2 days, 1 x 2 days active Not Available Not Available No t Available azithromy chelle 250 mg tablet use as directed 07/12 completed Not Available Not Available Not Available ofloxacin 0.3 % eye drops 01/13 completed Not Available Not Available Not Available benzonata te 200 mg capsule Take 1 capsule 3 times a day by oral route as needed. 08/05 completed Not Available Not Available Not Available valacyclo vir 1 gram tablet Take 1 tablet 3 times a day by oral route for 7 days. 07/23 completed Not Available Not Available Not Available clarithro mycin 500 mg tablet active Not Available Not Available No t Available hydrocodo ne 5 mg-acetam inophen 325 mg tablet Take 1 tablet 4 times a day by oral route as needed. 07/23 completed Not Available Not Available Not Available diphenoxy late-atro pine 2.5 mg-0.025 mg tablet 03/18 completed stopped in hosp Not Available Not Available Not Available penicilli n V potassium 500 mg tablet Take 1 tablet 3 times a day by oral route for 10 days. active Not Available Not Available No t Available amoxicill in 500 mg tablet Take 1 tablet 3 times a day by oral route for 7 days. active Not Available Not Available No t Available vancomyci n 125 mg capsule 1 capsule QID x 7days active Not Available Not Available No t Available ondansetr on 8 mg disintegr ating tablet 11/17 completed Not Available Not Available Not Available ketorolac 0.5 % eye drops 01/13 completed Not Available Not Available Not Available amoxicill in 875 mg tablet 11/17 completed Not Available Not Available Not Available prednisol one acetate 1 % eye drops,ramila pension 01/13 completed Not Available Not Available Not Available Kenalog 10 mg/mL suspensio n for injection Take 40 mg by injectio n route. 2022 active ND: [id number] 4-20 Not Available Not Available Not Available cephalexi n 500 mg capsule Take 1 capsule every 6 hours by oral route for 7 days. 03/05 completed Not Available Not Available Not Available ibuprofen 200 mg tablet Take 1 tablet every 6 hours by oral route. 07/09 completed Not Available Not Available Not Available Tylenol 325 mg tablet Take 2 tablets every 6 hours by oral route as needed. 2020 active Not Available Not Available Not Avai lable diclofena c sodium 75 mg tablet,de layed release TAKE 1 TABLET BY MOUTH TWICE DAILY active Not Available Not Available No t Available monteluka st 10 mg tablet TAKE 1 TABLET BY MOUTH EVERY DAY 2023 active Not Available Not Available Not Avai lable furosemid e 20 mg tablet Take 1 tablet every day by oral route as needed. 11/24 completed Not Available Not Available Not Available gabapenti n 100 mg capsule Take 2 capsules 3 times a day by oral route. active Not Available Not Available No t Available azelastin e 137 mcg (0.1 %) nasal spray 11/24 completed Not Available Not Available Not Available methylpre dnisolone 4 mg tablets in a dose pack take as directed 01/13 completed Not Available Not Available Not Available albuterol sulfate HFA 90 mcg/actua tion aerosol inhaler Inhale 2 puffs every 4 hours by inhalati on route. active Not Available Not Available No t Available cefdinir 300 mg capsule Take 1 capsule twice a day by oral route for 7 days. active Not Available Not Available No t Available fluticaso ne propionat e 50 mcg/actua tion nasal spray,ramila pension SHAKE LIQUID AND USE 1 SPRAY IN EACH NOSTRIL EVERY DAY active Not Available Not Available No t Available neomycin- polymyxin -hydrocor t 3.5 mg-10,000 unit/mL-1 % ear drops,ramila p 10/25 completed Not Available Not Available Not Available rosuvasta tin 10 mg tablet TAKE 1 TABLET BY MOUTH EVERY DAY active Not Available Not Available No t Available Imodium A-D 07/09 completed Not Available Not Available Not Available mometason e 0.1 % topical solution APPLY A FEW DROPS TO THE AFFECTED AREA(S) BY TOPICAL ROUTE ONCE DAILY NEEDED active Not Available Not Available No t Available Excedrin Tension Headache 500 mg-65 mg tablet Take by oral route. 07/09 completed Not Available Not Available Not Available calcium 390 mg (as calcium carbonate 1,000 mg) tablet Take by oral route. 07/09 completed Not Available Not Available Not Available Super Probiotic 2021 active Not Available Not Available Not Avai lable Allergy Relief (fexofena dine) 180 mg tablet TAKE 1 TABLET BY MOUTH EVERY DAY 2023 active Not Available Not Available Not Avai lable ropivacai ne (PF) 5 mg/mL (0.5 %) injection solution Take 40 mg by injectio n route. 2022 active [facility] [address]-20 4- Not Available Not Available Not Available Vitals Date Recorded Body mass index (BMI) Body height Heart rate Body temperature Body weight Systolic And Diastolic Provider Name and Address Organization Details Last Updated DateTime 3 31.1 kg/m2 149.86 cm 78 /min 97.6 [degF] 54366.9 4 g 132/74 mm[Hg] Not Available [employer] 3 02:53:12 Date Recorded Body height Body temperature Heart rate Systolic And Diastolic Provider Name and Address Organization Details Last Updated DateTime 11/17/2022 149.86 cm 98 [degF] 91 /min 136/82 mm[Hg] ETHEL Uriarte [address] 11/17/2022 11:23:38 Date Recorded Body height Provider Name an d Address Organization Details Last Updated DateTime 11/24/2022 149.86 cm Letty Chirinos Beba [address] 11/24/2022 10:23:19 Date Recorded Body height Body mass index (BMI) Body weight Provider Name and Address Organization Details Last Updated DateTime 12/29/2022 152.4 cm 28.3 kg/m2 29580.89 g Aliya Douglas CNA [address] 12/29/2022 09:52:57 Date Recorded Body height Body mass index (BMI) Body weight Body temperature Heart rate Systolic And Diastolic Provider Name and Address Organization Details Last Updated DateTime 3 152.4 cm 30.5 kg/m2 74214.4 1 g 97.9 [degF] 74 /min 118/80 mm[Hg] Belinda Yeboah Beba [address] 3 11:27:33 Social History Question Answer Notes LastModified by Organizat ion Details LastModified Time Tobacco Smoking Status Never Smoker Not Available [facility] 06/18/2022 02:45:21 Do You Have An Advance Directive? No MIGRATION.54909 67189 Information not available 06/18/2022 Are You Blind Or Do You Have Difficulty Seeing? Yes Cataracts MIGRATION.59338 35251 Information not available 06/18/2022 What Is Your Level Of Caffeine Consumption? None MIGRATION.30401 04902 Information not available 06/18/2022 How Much Tobacco Do You Chew? None MIGRATION.92791 37348 Information not available 06/18/2022 In The 14 Days Before Symptom Onset, Have You Had Close Contact With A Laboratory-confi rmed COVID-19 While That Case Was Ill? No MIGRATION.62402 79257 Information not available 06/18/2022 In The 14 Days Before Symptom Onset, Have You Had Close Contact With A Person Who Is Under Investigation For COVID-19 While That Person Was Ill? No MIGRATION.07282 16973 Information not available 06/18/2022 Are You Deaf Or Do You Have Serious Difficulty Hearing? No MIGRATION.55040 82208 Information not available 06/18/2022 What Type Of Diet Are You Following? REGULAR MIGRATION.96377 42846 Information not available 06/18/2022 Which Illicit Or Recreational Drugs Have You Used? None MIGRATION.20369 46617 Information not available 06/18/2022 What Is The Highest Grade Or Level Of School You Have Completed Or The Highest Degree You Have Received? [id number] MIGRATION.23575 49262 Information not available 06/18/2022 Have There Been Any Changes To Your Family Or Social Situation? No MIGRATION.73970 13829 Information not available 06/18/2022 What Is The Fluoride Status Of Your Home? Unknown MIGRATION.39803 53593 Information not available 06/18/2022 Are There Any Guns Present In Your Home? Yes MIGRATION.62911 00818 Information not available 06/18/2022 Do You Use Insect Repellent Routinely? No MIGRATION.10441 73728 Information not available 06/18/2022 Where Do You Live? Apartment MIGRATION.13594 85310 Information not available 06/18/2022 Presence Of Domestic Violence No Information not available 11/17/2022 Are You Able To Care For Yourself? Yes [email or web address] Information not available 11/17/2022 Are You Blind Or Do Yo Have Difficulty Seeing? No [email or web address] Information not available 11/17/2022 Are You Deaf Or Do You Have Serious Difficulty Hearing? No [email or web address] Information not available 11/17/2022 General Stress Level? Low [email or web address] Information not available 11/17/2022 Live Alone Of With Others? With Others [email or web address] Information not available 11/17/2022 Do You Have A Medical Power Of Med Asst? No MIGRATION.21942 25968 Information not available 06/18/2022 What Was The Date Of Your Most Recent Tobacco Screening? 03/16/2023 Information not available 03/16/2023 Do You Have Any Pets? No MIGRATION.07303 02422 Information not available 06/18/2022 What Is Your Relationship Status? MIGRATION.98608 01132 Information not available 06/18/2022 Do You Use Your Seat Belt Or Car Seat Routinely? Yes MIGRATION.14384 19354 Information not available 06/18/2022 Do You Have Smoke And Carbon Monoxide Detectors In Your Home? Yes MIGRATION.24762 84245 Information not available 06/18/2022 Are You Passively Exposed To Smoke? No MIGRATION.75164 24888 Information not available 06/18/2022 Are There Any Smokers In Your House? No MIGRATION.25591 74359 Information not available 06/18/2022 How Much Tobacco Do You Smoke? No MIGRATION.22034 75700 Information not available 06/18/2022 What Types Of Sporting Activities Do You Participate In? None MIGRATION.21122 92563 Information not available 06/18/2022 Do You Use Sunscreen Routinely? No MIGRATION.20461 17177 Information not available 06/18/2022 Has Tobacco Cessation Counseling Been Provided? No Not Needed-never Smoked MIGRATION.33209 28970 Information not available 06/18/2022 How Many Years Have You Smoked Tobacco? 0 MIGRATION.98946 96886 Information not available 06/18/2022 Have You Recently Traveled Abroad? No MIGRATION.43017 75954 Information not available 06/18/2022 Do You Have Difficulty Walking Or Climbing Stairs? Yes MIGRATION.02543 20026 Information not available 06/18/2022 Do You Have Any Dietary Restrictions? No MIGRATION.55348 99719 Information not available 06/18/2022 Sex: Female Functional Status Question Answer Note LastModified by Organizat Paradial Details LastModified Time Do you use any illicit or recreational drugs? No MIGRATION.32150 08211 Information not available 06/18/2022 Do you or have you ever used any other forms of tobacco or nicotine? No MIGRATION.83682 65273 Information not available 06/18/2022 What is your level of alcohol consumption? None MIGRATION.88489 07511 Information not available 06/18/2022 Do you or have you ever used smokeless tobacco? Never used smokeless tobacco MIGRATION.28081 61282 Information not available 06/18/2022 Do you have transportation difficulties? No MIGRATION.86156 47494 Information not available 06/18/2022 Are you able to walk? YESASSIST uses walker MIGRATION.90251 79595 Information not available 06/18/2022 Do you have difficulty doing errands alone? Yes pt does not drive MIGRATION.41782 33324 Information not available 06/18/2022 Are you able to care for yourself? Yes MIGRATION.15093 32948 Information not available 06/18/2022 What is your occupation? retired MIGRATION.74531 17763 Information not available 06/18/2022 Do you have difficulty dressing or bathing? No MIGRATION.20173 70013 Information not available 06/18/2022 Do you or have you ever used e-cigarettes or vape? Never used electronic cigarettes MIGRATION.45026 73795 Information not available 06/18/2022 What is your exercise level? None MIGRATION.74765 65709 Information not available 06/18/2022 Mental Status Question Answer Note LastModified by Organizat ion Details LastModified Time Do you feel stressed (tense, restless, nervous, or anxious, or unable to sleep at night)? [id number] MIGRATION.91490483 26 Information not available 06/18/2022 Do you have difficulty concentrating, remembering or making decisions? No MIGRATION.89719630 26 Information not available 06/18/2022 Family History Relationship Description Onset Age of this Age Resolved Age Notes LastModified by Organization Details LastModified Time Mother Diabetes mellitus 81 MIGRATION.545 [id number] Not available 06/18/2022 02:48:34 Mother Heart disease MIGRATION.784 8310803 Not available 06/18/2022 02:48:34 Mother Malignant tumor of breast MIGRATION.807 9438374 Not available 06/18/2022 02:48:34 Father Diabetes mellitus 86 MIGRATION.718 7497973 Not available 06/18/2022 02:48:34 Father Heart disease MIGRATION.674 6584801 Not available 06/18/2022 02:48:34 Medical History Condition Response NERVE DISEASE N BLINDNESS N RHEUMATIC FEVER N KIDNEY STONES N BLADDER PROBLEMS N OTHER # 1 N POLIO N LUNG DISEASE/DISORDER N RADIATION / CHEMOTHERAPY N COPD N Other # 2 N BLOOD DISEASES N SURGERY N EAR OR HEARING PROBLEMS N MUMPS N BOWEL PROBLEMS N DEPRESSION (INCLUDING POST ) N STROKE/TIA N ULCERS N BENIGN PROSTATIC HYPERPLASIA N MEASLES N MYOCARDIAL INFARCTION N OBESITY N GERD/NAUSEA N ANEURYSM N URINARY/BLADDER/KIDNEY PROBLEMS N INPATIENT PSYCH CARE N CORONARY ARTERY DISEASE (CAD) N ADDICTION CONCERNS N ENDOMETRIOSIS N Impotence N USE OF BLOOD THINNERS N SKIN PROBLEMS N GASTROINTESTINAL DISORDER N PERIPHERAL VASCULAR DISEASE N MUSCLE,JOINT OR BONE PROBLEMS N GASTROINTESTINAL BLEEDING N BLOOD CLOTS N ASTHMA N CATARACTS N ERECTILE DYSFUNCTION N VARICOSITIES N GI PROBLEMS N Low Testosterone N INFERTILITY N AIDS/HIV N CHEMOTHERAPY / RADIATION N LIVER DISEASE N MALE HYPOGONADISM N HYPERTENSION Y Deficiency N ANXIETY DISORDER N BLOOD TRANSFUSION N ANEMIA/BLOOD DISORDER N CHRONIC EAR INFECTIONS N BRONCHITIS N TUBERCULOSIS N GLAUCOMA N FOOT PROBLEM N DIVERTICULITIS N SLEEP APNEA N CHICKENPOX N INFECTIOUS DISEASE N HEART ARRHYTHMIA N PROSTATE N INSOMNIA N HIGH CHOLESTEROL / HYPERLIPIDEMIA Y HYPERTHYROIDISM N EYE PROBLEMS N NEUROLOGICAL PROBLEMS N EDEMA N CHRONIC PAIN SYNDROME N HYPOTHYROIDISM N CAROTID BLOCKAGE N CONSTIPATION N BACK / NECK PROBLEMS N HAVE YOU BEEN HOSPITALIZED OR SEEN IN [facility] IN THE PAST YEAR ? N ATHEROSCLEROSIS N BREAST PROBLEMS N DIALYSIS N ECZEMA N OSTEOPOROSIS N ARTHRITIS Y APPENDICITIS N DIABETES, TYPE N BAD TEETH N ENT N HEARTBURN / REFLUX N AUTISM SPECTRUM DISORDER (ASD) N HEPATITIS / LIVER DISEASE N PULMONARY DISEASE N GOUT N SLEEP DISORDER N ALZHEIMER'S DISEASE N Brain Problems N HERPES Y DEMENTIA N HEADACHES/MIGRAINES N SEIZURES/EPILEPSY N VASCULAR DISEASE N PACEMAKER N Blood Disorder N DIZZINESS N HEART DISEASE/HEART PROBLEMS N KIDNEY DISEASE N MULTIPLE SCLEROSIS N CARDIAC ARRHYTHMIA N CANCER: SPECIFY N ANESTHESIA COMPLICATIONS N ATRIAL FIBRILLATION N Gall Stones N PULMONARY EMBOLISM N AUTOIMMUNE DISEASE N Gynecological History Statement/Question Response Date of Last Pap Date of Last Mammogram Date of Last Colonoscopy Most Recent Bone Density Obstetrics History GPAL:G 1 P 1 0 0 0 Type Value Full Term 1 Total 1 Immunizations Vaccine Type Date Status Note Provider Nam e and Address Organization Details Recorded Time COVID-19 vaccine, vector-nr, rS-Ad26, PF, 0.5 mL 10/01/2020 completed Not Available [facility] 4 23:39:16 COVID-19 vaccine, vector-nr, rS-Ad26, PF, 0.5 mL 04/22/2021 completed Not Available [facility] 4 23:39:16 Past Encounters Encounter ID Performer Location Encounter Start Date Encounter Closed Date Diagnosis/Indication Diagnosis SNOMED-CT Code Diagnosis ICD10 Code Diagnosis Note [id number] Jg Pryor MD [facility] Internal Med [facility] [address] [address] 07/09/2020 00:00:00 07/09/2020 21:59:50 [id number] Jg Pryor MD [facility] Internal Med [facility] [address] [address] 07/23/2020 00:00:00 07/23/2020 22:12:15 [id number] Jg Pryor MD [facility] Internal Med [facility] [address] [facility] [address] [address] 09/10/2020 00:00:00 09/17/2020 16:33:18 [id number] Jg Pryor MD S_G Internal Med [facility] [facility] [address] [address] 12/17/2020 00:00:00 12/17/2020 21:52:11 [id number] Jg Pryor MD S_G Internal Med [facility] [address] [address] 03/18/2021 00:00:00 03/18/2021 22:38:17 [id number] Jg Pryor MD S_G Internal Med [facility] [address] [facility] [address] 1 03/29/2021 00:00:00 04/21/2021 22:58:38 [id number] Jg Pryor MD [facility]_G Internal Med [facility] [address] [place], [place] [address]., [address] [address] 05/06/2021 00:00:00 05/11/2021 18:16:08 [id number] Jg Pryor MD S_GMG Internal Med [facility] [address] [place], [place] [address]., [address] [address] 1 07/12/2021 00:00:00 07/14/2021 12:16:29 [id number] Jg Pryor MD S_GMG Internal Med [facility] [address] [place], [place] [address]., [address] [address] 08/05/2021 00:00:00 08/05/2021 22:17:29 [id number] Jg Pryor MD S_GMG Internal Med [facility] 2043 [facility] [address] [address] 1 09/02/2021 00:00:00 09/02/2021 11:26:26 [id number] Jg Pryor MD [facility]_G Internal Med [facility] [address] [place] [address]., [address] [address] 09/20/2021 00:00:00 10/21/2021 15:09:02 [id number] Jg Pryor MD S_GMG Internal Med [facility] [address] [place] [address]., [address] [address] 2022 00:00:00 2022 11:40:37 [id number] Jg Pryor MD S_G Internal Med [facility] [address] [place] [address]., [address] [address] 1 05/19/2022 00:00:00 06/02/2022 22:00:12 [id number] Jg Pryor MD S_G Internal Med [facility] [address] [place] [address]., [address] [address] 1 11/17/2022 11:07:49 11/17/2022 12:31:05 Adult health examination [id number] Z00.00 Screening for disorder 722077182 Z13.9 Essential hypertension 29720624 I10 Pain of bi lateral knee joints 1408480192 54232 M25.561 M25.562 Allergic rhinitis 042232 04 J30.9 Dyslipidemia 190839202 E 78.5 [id number] Myah Mohamud MD [facility] [address] [place] [address] 11/24/2022 09:37:26 11/24/2022 11:31:42 Pain of bilateral knee joints 4317898336 50652 M25.561 M25.562 Bilateral osteoarthritis of knees 1130557217 27946 M17.0 [id number] Myah Mohamud MD [facility] [address] [place] [address] 12/29/2022 09:45:22 12/29/2022 10:22:34 Bilateral osteoarthritis of knees 4572190746 94761 M17.0 Pain of bi lateral knee joints 0644941080 47982 M25.561 M25.214 [id number] Jg Pryor MD [facility] 15 2043 [facility], [address] [place] [address] 03/16/2023 10:42:50 03/16/2023 12:43:35 Allergic rhinitis 48451030 J30.9 Bilateral osteoarthritis of knees 3973039833 73732 M17.0 Dyslipidemia 562051879 E 78.5 Health Concerns Section Related Observation LastModified by Organization Detai ls LastModified Time None Recorded Concern Status LastModified by Organization Details LastModified Time None Recorded Advance Directives Directive N: Payers Insurance Date Sequence Insurance Name Policy Number Policy Ngo Covered Member ID Ngo Member ID Guarantor Name 03/29/2023 3 [place] [employer] [place] [employer] Sujatha Glez [id number] Sujatha Glez 02/24/2024 1 [facility] - [employer] - MEDICARE COMPLETE PLAN 1 (MEDICARE REPLACEMENT HMO) [id number] Sujatha Glez [id number] Sujatha Glez 02/25/2024 2 [place] WHEN MEDICARE OR MEDICARE REPLACEMENT PRIMARY) Sujatha Glez [id number] Sujatha Glez Notes Date Note Type Note Provider Name and Address Organization Details Recorded Time 11/18/19 23 text/htm l Hypertension blood pressure 136/80 asymptomaticHyperlipidemia tries to watch her intake ofRhinitis stable on current medicationBilateral knee pain bilateral hip pain [id number]-[id number] worse with movement better with rest going on for many months Jg Pryor MD [address] [address], [place], [address], [facility] [employer] [facility] 11/18/2022 08:31:39 11/25/19 23 text/htm l KneeReported bypatient.Location:bilateral Quality:aching; throbbing; dull Severity:moderate Duration:continuous since onset Timing:chronic Alleviating Factors:sitting; lying down; rest; elevation Aggravating Factors:bending/squatting; weightbearing Associated Symptoms:no weakness; no numbness; no tingling; no redness; no ecchymosis; no catching/locking; no popping/clicking; no buckling; no instability; no radiation down leg; no drainage; no fever; no chills; no weight loss; no change in bowel/bladder habits;swelling;warmth;grindin g Myah Mohamud MD [address] [address], [place], [address], [facility] [employer] [facility] 11/24/2022 11:24:06 12/30/19 23 text/htm l Patient returns knee pain left greater than right. She got reasonable relief from the right knee left knee remains symptomatic. Unfortunately she banged her left knee and contused which made the knee worse. Myah Mohamud MD [address] [address], [place], [address], [facility] [employer] [facility] 12/29/2022 10:16:01 03/16/20 23 text/htm l Hypertension blood pressure no chest pain or shortness ofHyperlipidemia tries to watch her intake ofRhinitis stable on current medicationBilateral knee pain bilateral hip pain psxb-[id number]-mtrvpiha worse with movement better with rest going on for many months Jg Pryor MD [address] [address], [place], [address], [facility] [employer] [facility] 03/16/2023 22:48:44 OBGyn Episode No OBEpisode recorded.
--- OUTSIDE RECORDS SUMMARY | 2024-11-07 09:11 | XMS_ITS | Data Portability ---
Author Organization [facility]INReynold Address [address] [place] [address] Care Team Providers Care Emissions Inspector Name Role Phone JG PRYOR Primary Care Provider Assessment Encounter Date Assessment Date Assessment LastModified by Organization Details LastModified Time 12/31/2023 12/31/2023 Lasix 20 b.i.d. report back by phone on Thursday see me in 1 month [email or web address] Not available 12/31/2023 23:24:58 01/25/2024 01/25/2024 she will weigh herself everyday she will watch processed foods and other salt containing entities right now looks like her weight is about [id number] so on those days she will take 1 Lasix 20 mg if her weight goes up to 145 she will take 2 Lasix for 3 days and call office if it does not go back down. We will check a BMP to make sure Lasix that she has been taking has not caused any electrolyte disturbance. Dyslipidemia rosuvastatin rhinitis generic Singulair and fexofenadine flu shot declined [email or web address] Not available 01/25/2024 21:55:48 02/09/2024 02/09/2024 get her set up for an MRI of the kidney lesion healthy lifestyle care instructions recheck blood work follow up with me in a week brat diet [email or web address] Not available 02/21/2024 11:48:47 09/26/2024 09/26/2024 We will get her a wheelchair so that she can get out in about for prolonged time outside of the house. Renal lesion will be followed up by specialists hyperlipidemia rosuvastatin rhinitis montelukast edema Lasix p.r.n. follow up with for 6 weeks. Again wheelchair needed because she gets weak using the Rollator and has to sit for prolonged periods of time before she can ambulate again with a wheelchair family will be able to get her to various places that she needs to get to it isnot safe for them to be pushing her on her Rollator Not available 10/09/2024 16:12:00 10/31/2024 10/31/2024 Last echo reviewed interval history she did see Urology they are going to rescanned her she did have a lesion in her kidney that was felt to be a renal cell carcinoma but because of her multiple comorbidities at the time they chose not to do anything about it sounds like they might be re-evaluating blood work for her fatigue other medicines to continue all medicines have been discussed with the patient see me in 4 months Not available 10/31/2024 15:20:02 Plan of Treatment Reminders Order Date Submit Date Provider Last Modified By Organization Details Last Modified Time Details Appointments ANY 15 2024 10:30A M Jg Pryor MD Not available Not available Not available Lab CBC w/ auto diff 2024 025 [facility] (Centralized Electronic Ordering - All Locations), Patient Can Go To The Location Of Their Choice, 11/01/2024 11:09:00 CMP, serum or plasma 2024 025 [facility] (Centralized Electronic Ordering - All Locations), Patient Can Go To The Location Of Their Choice, 11/01/2024 11:08:55 lipid panel, serum 2024 025 [facility] (Centralized Electronic Ordering - All Locations), Patient Can Go To The Location Of Their Choice, 11/01/2024 11:08:54 TSH, ultra-sen sitive, serum 2024 025 BETTY [facility] (Centralized Electronic Ordering - All Locations), Patient Can Go To The Location Of Their Choice, 11/01/2024 11:08:58 T4, free, serum 2024 025 BETTY [facility] (Centralized Electronic Ordering - All Locations), Patient Can Go To The Location Of Their Choice, [id number] 11/01/2024 11:09:02 T3, free, serum or plasma 2024 025 [facility] (Centralized Electronic Ordering - All Locations), Patient Can Go To The Location Of Their Choice, [id number] 11/01/2024 11:09:01 cobalamin and folate panel, serum 2024 025 [facility] (Centralized Electronic Ordering - All Locations), Patient Can Go To The Location Of Their Choice, [id number] 11/01/2024 11:08:57 CBC w/ auto diff 2023 024 [facility], [address] [place] [address], [address], [place], [address], 02/10/2024 07:19:20 CMP, serum or plasma 2023 024 [facility], [address] [place] [address], [address], [place], [address], 02/10/2024 07:19:18 BMP, serum or plasma 2023 024 [facility], [address] [place] [address], [address], [place], [address], 01/26/2024 16:45:05 Referral hematolog ist/oncol ogist referral 2024 025 GREELEY Den Palacio MD, [address], [place], [address], 09/28/2024 13:39:28 Procedures None recorded. Surgeries None recorded. Imaging MRI, abdomen, w/wo contrast - Feb 28 at 1230pm be there. 2023 024 [facility] ([facility]), [address], [place], [address], 02/21/2024 15:48:24 Medication Orders None recorded. Patient TargetsNo targets recorded. Patient Instructions Encounter Date Encounter Id Patient Instructions Last Modified By Organization Details Last Modified Time 02/09/2024 [id number] A healthy lifestyle: care instructions [email or web address] Not available 02/09/2024 15:32:49 09/26/2024 [id number] A healthy lifestyle: care instructions [email or web address] Not available 09/27/2024 21:01:09 10/31/2024 [id number] A healthy lifestyle: care instructions [email or web address] Not available 10/31/2024 15:17:36 Reason for Referral Referring Physician: Jg Pryor, Internal Medicine, Encounter Date: 09/26/2024 Results Created Date Observation Date Name Description Value Unit Range Abnormal Flag Note LastModifiedBy Organization Detail LastModifiedTime 11/30/1911/30/2023 Natri ureti c pepti de B [Mass /volu me] in Blood BNP text: 4-125 BNP Not Available Not Available 08/11/2024 10:09:50 11/30/19 24 11/30/2023 Compr ehens tejal metab olic 2000 panel - Serum or Plasm a sodium text: 137-14 5 sodiu m Not Available Not Available 08/11/2024 10:09:50 11/30/19 24 11/30/2023 Compr ehens tejal metab olic 2000 panel - Serum or Plasm a potassium text: 3.5-5. 1 potas sium Not Available Not Available 08/11/2024 10:09:50 11/30/19 24 11/30/2023 Compr ehens tejal metab olic 2000 panel - Serum or Plasm a chloride text: 98-107 chlor lakeshia Not Available Not Available 08/11/2024 10:09:50 11/30/19 24 11/30/2023 Compr ehens tejal metab olic 2000 panel - Serum or Plasm a carbon dioxide text: 22-30 carbo n dioxi de Not Available Not Available 08/11/2024 10:09:50 11/30/19 24 11/30/2023 Compr ehens tejal metab olic 2000 panel - Serum or Plasm a anion gap text: 14-22 low anion gap Not Available Not Available 08/11/2024 10:09:50 11/30/19 24 11/30/2023 Compr ehens tejal metab olic 2000 panel - Serum or Plasm a glucose text: 70-99 high gluco se Not Available Not Available 08/11/2024 10:09:50 11/30/19 24 11/30/2023 Compr ehens tejal metab olic 2000 panel - Serum or Plasm a BUN text: 8-19 BUN Not Available Not Available 08/11/2024 10:09:50 11/30/19 24 11/30/2023 Compr ehens tejal metab olic 2000 panel - Serum or Plasm a creatinine text: 0.66-1 .25 low creat inine Not Available Not Available 08/11/2024 10:09:50 11/30/19 24 11/30/2023 Compr ehens tejal metab olic 2000 panel - Serum or Plasm a GFR >60 GFR Not Available Not Availa ble 08/11/2024 10:09:50 11/30/19 24 11/30/2023 [facility] ehens tejal metab olic 2000 panel - Serum or Plasm a alkaline phosphatase text: 38-126 alkal ine phosp hatas e Not Available Not Available 08/11/2024 10:09:50 11/30/19 24 11/30/2023 Compr ens tejal metab olic 2000 panel - Serum or Plasm a alanine aminotransfe rase text: 0-35 sylvia ne amino trans feras e Not Available Not Available 08/11/2024 10:09:50 11/30/19 24 11/30/2023 [facility] - Serum or Plasm a aspartate aminotransfe rase text: 15-37 aspar ng amino trans feras e Not Available Not Available 08/11/2024 10:09:50 11/30/19 24 11/30/2023 [facility] - Serum or Plasm a bilirubin, total text: 0.20-1 .30 bilir ubin, total Not Available Not Available 08/11/2024 10:09:50 11/30/19 24 11/30/2023 Compr ehens tejal metab olic 2000 panel - Serum or Plasm a calcium text: 8.4-10 .2 calci um Not Available Not Available 08/11/2024 10:09:50 11/30/19 24 11/30/2023 Compr ehens tejal metab olic 2000 panel - Serum or Plasm a total protein text: 6.3-8. 2 total prote in Not Available Not Available 08/11/2024 10:09:50 11/30/19 24 11/30/2023 Compr ehens tejal metab olic 2000 panel - Serum or Plasm a albumin text: 3.0-4. 4 album in Not Available Not Available 08/11/2024 10:09:50 11/30/19 24 11/30/2023 Compr ehens tejal metab olic 2000 panel - Serum or Plasm a globulin text: 2.6-4. 2 globu subhash Not Available Not Available 08/11/2024 10:09:50 11/30/19 24 11/30/2023 Compr ehens tejal metab olic 2000 panel - Serum or Plasm a A/G ratio text: 1.0-2. 0 A/G ratio Not Available Not Available 08/11/2024 10:09:50 11/30/19 24 11/30/2023 Lipid 1996 panel - Serum or Plasm a cholesterol text: 140-19 9 low hilary stero l Not Available Not Available 08/11/2024 10:09:50 11/30/19 24 11/30/2023 Lipid 1996 panel - Serum or Plasm a triglyceride s text: 0-150 trigl yceri karlene Not Available Not Available 08/11/2024 10:09:50 11/30/19 24 11/30/2023 Lipid 1996 panel - Serum or Plasm a HDL cholesterol text: 40- HDL hilary stero l Not Available Not Available 08/11/2024 10:09:50 11/30/19 24 11/30/2023 Lipid 1996 panel - Serum or Plasm a LDL cholesterol, calculated text: 0-130 LDL hilary stero l, calcu lated Not Available Not Available 08/11/2024 10:09:50 11/30/19 24 11/30/2023 CBC W Auto Diffe renti al panel - Blood white blood cells text: 4.2-10 .8 white blood cells Not Available Not Available 08/11/2024 10:09:50 11/30/19 24 11/30/2023 CBC W Auto Diffe renti al panel - Blood red blood cells text: 3.80-5 .20 red blood cells Not Available Not Available 08/11/2024 10:09:50 11/30/19 24 11/30/2023 CBC W Auto Diffe renti al panel - Blood hemoglobin text: 12.0-1 5.6 hemog lobin Not Available Not Available 08/11/2024 10:09:50 11/30/1911/30/2023 CBC W Auto Diffe renti al panel - Blood hematocrit text: 35.7-4 5.7 hemat ocrit Not Available Not Available 08/11/2024 10:09:50 11/30/1911/30/2023 CBC W Auto Diffe renti al panel - Blood mean red cell volume text: 82.0-9 9.0 mean red cell volum e Not Available Not Available 08/11/2024 10:09:50 11/30/1911/30/2023 CBC W Auto Diffe renti al panel - Blood mean red cell hemoglobin text: 27.0-3 3.0 mean red cell hemog lobin Not Available Not Available 08/11/2024 10:09:50 11/30/1911/30/2023 CBC W Auto Diffe renti al panel - Blood mean RBC HGB concentratio n text: 31.0-3 6.0 mean RBC HGB margo ntrat ion Not Available Not Available 08/11/2024 10:09:50 11/30/1911/30/2023 CBC W Auto Diffe renti al panel - Blood red cell distribution width text: 11.8-1 5.5 red cell distr ibuti on width Not Available Not Available 08/11/2024 10:09:50 11/30/1911/30/2023 CBC W Auto Diffe renti al panel - Blood platelets text: 150-40 0 plate lets Not Available Not Available 08/11/2024 10:09:50 11/30/1911/30/2023 CBC W Auto Diffe renti al panel - Blood mean platelet volume text: 9.0-12 .4 mean plate let volum e Not Available Not Available 08/11/2024 10:09:50 11/30/19 24 11/30/2023 CBC W Auto Diffe renti al panel - Blood neutrophils text: 39.0-7 2.0 neutr ophil s Not Available Not Available 08/11/2024 10:09:50 11/30/19 24 11/30/2023 CBC W Auto Diffe renti al panel - Blood lymphocytes text: 16.0-4 7.0 low lymph ocyte s Not Available Not Available 08/11/2024 10:09:50 11/30/19 24 11/30/2023 CBC W Auto Diffe renti al panel - Blood monocytes text: 5.0-12 .0 monoc ytes Not Available Not Available 08/11/2024 10:09:50 11/30/19 24 11/30/2023 CBC W Auto Diffe renti al panel - Blood eosinophils text: 1.0-7. 0 high eosin ophil s Not Available Not Available 08/11/2024 10:09:50 11/30/1911/30/2023 CBC W Auto Diffe renti al panel - Blood basophils text: 0.0-2. 0 basop hils Not Available Not Available 08/11/2024 10:09:50 11/30/19 24 11/30/2023 CBC W Auto Diffe renti al panel - Blood immature granulocytes text: 0.00-0 .50 immat ure granu locyt es Not Available Not Available 08/11/2024 10:09:50 11/30/19 24 11/30/2023 CBC W Auto Diffe renti al panel - Blood neutrophils, absolute count text: 1.5-8. 0 neutr ophil s, absol [place] count Not Available Not Available 08/11/2024 10:09:50 11/30/19 24 11/30/2023 CBC W Auto Diffe renti al panel - Blood lymphocytes, absolute count text: 1.07-3 .43 lymph ocyte s, absol [place] count Not Available Not Available 08/11/2024 10:09:50 11/30/1911/30/2023 CBC W Auto Diffe renti al panel - Blood monocytes, absolute count text: 0.29-0 .99 monoc ytes, absol [place] count Not Available Not Available 08/11/2024 10:09:50 11/30/19 24 11/30/2023 CBC W Auto Diffe renti al panel - Blood eosinophils, absolute count text: 0.02-0 .53 high eosin ophil s, absol [place] count Not Available Not Available 08/11/2024 10:09:50 11/30/19 24 11/30/2023 CBC W Auto Diffe renti al panel - Blood basophils, absolute count text: 0.01-0 .08 basop hils, absol [place] count Not Available Not Available 08/11/2024 10:09:50 11/30/19 24 11/30/2023 CBC W Auto Diffe renti al panel - Blood immature granulocytes ,absolute text: 0.00-0 .05 immat ure granu locyt es,ab solut e Not Available Not Available 08/11/2024 10:09:50 11/30/19 24 11/30/2023 CBC W Auto Diffe renti al panel - Blood nucleated red blood cells text: -0 nucle ated red blood cells Not Available Not Available 08/11/2024 10:09:50 11/30/19 24 11/30/2023 CBC W Auto Diffe renti al panel - Blood NRBC# NRBC# Not Available Not Availa ble 08/11/2024 10:09:50 01/26/2001/26/2024 Basic metab olic 2000 panel - Serum or Plasm a sodium text: 137-14 5 sodiu m Not Available Not Available 08/11/2024 10:09:51 01/26/2001/26/2024 Basic metab olic 2000 panel - Serum or Plasm a potassium text: 3.5-5. 1 potas sium Not Available Not Available 08/11/2024 10:09:51 01/26/2001/26/2024 Basic metab olic 2000 panel - Serum or Plasm a chloride text: 98-107 chlor lakeshia Not Available Not Available 08/11/2024 10:09:51 01/26/2001/26/2024 Basic metab olic 2000 panel - Serum or Plasm a carbon dioxide text: 22-30 carbo n dioxi de Not Available Not Available 08/11/2024 10:09:51 01/26/2001/26/2024 Basic metab olic 2000 panel - Serum or Plasm a anion gap text: 14-22 low anion gap Not Available Not Available 08/11/2024 10:09:51 01/26/2001/26/2024 Basic metab olic 2000 panel - Serum or Plasm a glucose text: 70-99 high gluco se Not Available Not Available 08/11/2024 10:09:51 01/26/2001/26/2024 Basic metab olic 2000 panel - Serum or Plasm a BUN text: 8-19 BUN Not Available Not Available 08/11/2024 10:09:51 01/26/2001/26/2024 Basic metab olic 2000 panel - Serum or Plasm a creatinine text: 0.66-1 .25 creat inine Not Available Not Available 08/11/2024 10:09:51 01/26/2001/26/2024 Basic metab olic 2000 panel - Serum or Plasm a GFR >60 GFR Not Available Not Availa ble 08/11/2024 10:09:51 01/26/2001/26/2024 Basic metab olic 2000 panel - Serum or Plasm a calcium text: 8.4-10 .2 calci um Not Available Not Available 08/11/2024 10:09:51 02/09/2002/10/2024 COMP. METAB OLIC PANEL (14) glucose 107 mg/dL 70-99 above high normal Not Available [facility] ([facility]) [address] [place], [address], 02/10/2024 07:19:18 02/09/2002/10/2024 COMP. METAB OLIC PANEL (14) BUN 8 mg/dL 8-27 Not Available [facility] ([facility]) [address] [place], [address], 02/10/2024 07:19:18 02/09/2002/10/2024 COMP. METAB OLIC PANEL (14) creatinine 0.71 mg/dL 0.57-1 .00 Not Available [facility] ([facility]) [address] [place], [address], 02/10/2024 07:19:18 02/09/2002/10/2024 COMP. METAB OLIC PANEL (14) eGFR 84 mL/mi n/1.7 3 >59 Not Available [facility] ([facility]) [address] [place], [address], 02/10/2024 07:19:18 02/09/20 24 02/10/2024 COMP. METAB OLIC PANEL (14) BUN/creatini ne ratio 11 12-28 below low normal Not Available [facility] ([facility]) [address] [facility], [place], [address], 02/10/2024 07:19:18 02/09/20 24 02/10/2024 COMP. METAB OLIC PANEL (14) sodium 142 mmol/ L 134-14 4 Not Available [facility] ([facility]) [address] [facility], [place], [address], 02/10/2024 07:19:18 02/09/2002/10/2024 COMP. METAB OLIC PANEL (14) potassium 3.3 mmol/ L 3.5-5. 2 below low normal Not Available [facility] ([facility]) [address] [facility], [place], [address], 02/10/2024 07:19:18 02/09/20 24 02/10/2024 COMP. METAB OLIC PANEL (14) chloride 99 mmol/ L 96-106 Not Available [facility] ([facility]) [address] [facility], [place], [address], 02/10/2024 07:19:18 02/09/20 24 02/10/2024 COMP. METAB OLIC PANEL (14) carbon dioxide, total 23 mmol/ L 20-29 Not Available [facility] ([facility]) [address] [facility], [place], [address], 02/10/2024 07:19:18 02/09/20 24 02/10/2024 COMP. METAB OLIC PANEL (14) calcium 9.7 mg/dL 8.7-10 .3 Not Available [facility] ([facility]) [address] [place], [address], 02/10/2024 07:19:18 02/09/20 24 02/10/2024 COMP. METAB OLIC PANEL (14) protein, total 7.0 g/dL 6.0-8. 5 Not Available [facility] ([facility]) [address] [place], [address], 02/10/2024 07:19:18 02/09/20 24 02/10/2024 COMP. METAB OLIC PANEL (14) albumin 4.4 g/dL 3.7-4. 7 Not Available [facility] ([facility]) [address] [place], [address], 02/10/2024 07:19:18 02/09/20 24 02/10/2024 COMP. METAB OLIC PANEL (14) globulin, total 2.6 g/dL 1.5-4. 5 Not Available [facility] ([facility]) [address] [place], [address], 02/10/2024 07:19:18 02/09/20 24 02/10/2024 COMP. METAB OLIC PANEL (14) bilirubin, total 0.4 mg/dL 0.0-1. 2 Not Available [facility] ([facility]) [address] [place], [address], 02/10/2024 07:19:18 02/09/20 24 02/10/2024 COMP. METAB OLIC PANEL (14) alkaline phosphatase 80 IU/L 44-121 Not Available [facility] ([facility]) [address] [place], [address], 02/10/2024 07:19:18 02/09/20 24 02/10/2024 COMP. METAB OLIC PANEL (14) AST (SGOT) 19 IU/L 0-40 Not Available [facility] ([facility]) [address] [place], [address], 02/10/2024 07:19:18 02/09/20 24 02/10/2024 COMP. METAB OLIC PANEL (14) ALT (SGPT) 8 IU/L 0-32 Not Available [facility] ([facility]) [address] [facility], [place], [address], 02/10/2024 07:19:18 02/09/2002/10/2024 CBC WITH DIFFE RENTI AL/PL ATELE T WBC 8.8 x10e3 /uL 3.4-10 .8 Not Available [facility] ([facility]) [address] [facility], [place], [address], 02/10/2024 07:19:20 02/09/2002/10/2024 CBC WITH DIFFE RENTI AL/PL ATELE T RBC 4.31 x10e6 /uL 3.77-5 .28 Not Available [facility] ([facility]) [address] [facility], [place], [address], 02/10/2024 07:19:20 02/09/2002/10/2024 CBC WITH DIFFE RENTI AL/PL ATELE T hemoglobin 12.5 g/dL 11.1-1 5.9 Not Available [facility] ([facility]) [address] [facility], [place], [address], 02/10/2024 07:19:20 02/09/2002/10/2024 CBC WITH DIFFE RENTI AL/PL ATELE T hematocrit 39.8 % 34.0-4 6.6 Not Available [facility] ([facility]) [address] [facility], [place], [address], 02/10/2024 07:19:20 02/09/2002/10/2024 CBC WITH DIFFE RENTI AL/PL ATELE T MCV 92 fL 79-97 Not Available [facility] ([facility]) [address] [facility], [place], [address], 02/10/2024 07:19:20 02/09/2002/10/2024 CBC WITH DIFFE RENTI AL/PL ATELE T MCH 29.0 pg 26.6-3 3.0 Not Available [facility] ([facility]) [address] [facility], [place], [address], 02/10/2024 07:19:20 02/09/2002/10/2024 CBC WITH DIFFE RENTI AL/PL ATELE T MCHC 31.4 g/dL 31.5-3 5.7 below low normal Not Available [facility] ([facility]) [address] [facility], [place], [address], 02/10/2024 07:19:20 02/09/2002/10/2024 CBC WITH DIFFE RENTI AL/PL ATELE T RDW 12.3 % 11.7-1 5.4 Not Available [facility] ([facility]) [address] [facility], [place], [address], 02/10/2024 07:19:20 02/09/2002/10/2024 CBC WITH DIFFE RENTI AL/PL ATELE T platelets 508 x10e3 /uL 150-45 0 above high normal Not Available [facility] ([facility]) [address] [facility], [place], [address], 02/10/2024 07:19:20 02/09/20 24 02/10/2024 CBC WITH DIFFE RENTI AL/PL ATELE T neutrophils 75 % notest ab. Not Available [facility] ([facility]) [address] [facility], [place], [address], 02/10/2024 07:19:20 02/09/20 24 02/10/2024 CBC WITH DIFFE RENTI AL/PL ATELE T lymphs 14 % notest ab. Not Available [facility] ([facility]) [address] [place], [address], 02/10/2024 07:19:20 02/09/20 24 02/10/2024 CBC WITH DIFFE RENTI AL/PL ATELE T monocytes 6 % notest ab. Not Available [facility] ([facility]) [address] [facility], [place], [address], 02/10/2024 07:19:20 02/09/2002/10/2024 CBC WITH DIFFE RENTI AL/PL ATELE T eos 4 % notest ab. Not Available [facility] ([facility]) [address] [facility], [place], [address], 02/10/2024 07:19:20 02/09/2002/10/2024 CBC WITH DIFFE RENTI AL/PL ATELE T basos 1 % notest ab. Not Available [facility] ([facility]) [address] [facility], [place], [address], 02/10/2024 07:19:20 02/09/20 24 02/10/2024 CBC WITH DIFFE RENTI AL/PL ATELE T neutrophils (absolute) 6.6 x10e3 /uL 1.4-7. 0 Not Available [facility] ([facility]) [address] [facility], [place], [address], 02/10/2024 07:19:20 02/09/2002/10/2024 CBC WITH DIFFE RENTI AL/PL ATELE T lymphs (absolute) 1.3 x10e3 /uL 0.7-3. 1 Not Available [facility] ([facility]) [address] [facility], [place], [address], 02/10/2024 07:19:20 02/09/2002/10/2024 CBC WITH DIFFE RENTI AL/PL ATELE T monocytes(ab solute) 0.6 x10e3 /uL 0.1-0. 9 Not Available [facility] ([facility]) [address] [facility], [place], [address], 02/10/2024 07:19:20 02/09/20 24 02/10/2024 CBC WITH DIFFE RENTI AL/PL ATELE T eos (absolute) 0.3 x10e3 /uL 0.0-0. 4 Not Available [facility] ([facility]) [address] [facility], [place], [address], 02/10/2024 07:19:20 02/09/2002/10/2024 CBC WITH DIFFE RENTI AL/PL ATELE T baso (absolute) 0.1 x10e3 /uL 0.0-0. 2 Not Available [facility] ([facility]) [address] [facility], [place], [address], 02/10/2024 07:19:20 02/09/2002/10/2024 CBC WITH DIFFE RENTI AL/PL ATELE T immature granulocytes 0 % notest ab. Not Available [facility] ([facility]) [address] [facility], [place], [address], 02/10/2024 07:19:20 02/09/2002/10/2024 CBC WITH DIFFE RENTI AL/PL ATELE T immature grans (abs) 0.0 x10e3 /uL 0.0-0. 1 Not Available [facility] ([facility]) [address] [facility], [place], [address], 02/10/2024 07:19:20 12/02/19 24 12/01/2023 nerve condu ction study No observ ation record ed. [facility] [address], [place], [address], 12/11/2023 16:25:20 12/29/19 24 12/28/2023 bone densi ty No observ ation record ed. [facility] [address] [place], [address], 01/01/2024 13:00:28 01/25/20 24 01/18/2024 US, echoc ardio gram No observ ation record ed. [facility] [address] [place], [address], 01/25/2024 11:08:21 01/30/20 24 01/30/2024 CT, abdom en + pelvi s, w/ contr ast No observ ation record ed. [address], [place], [address], 02/01/2024 17:29:33 02/17/20 24 02/17/2024 CT, abdom en + pelvi s, w/ contr ast No observ ation record ed. [address], [place], [address], 02/20/2024 17:39:45 02/21/20 24 02/20/2024 MRI, abdom en, w/wo contr ast No observ ation record ed. [address] [facility], [place], [address], 02/22/2024 14:08:21 02/22/20 24 02/20/2024 MRI, abdom en, w/wo contr ast No observ ation record ed. [address], [place], [address], 02/22/2024 14:08:22 02/23/20 24 02/22/2024 , [facility]dio gram No observ ation record ed. [address], [place], [address], 02/23/2024 16:01:15 Result Notes None recorded. Problems Name Problem SNOMED Code Status Onset Date Resolution Date Notes Provider Name and Address Organization Details Recorded Time Numbness of hand 167999621 Active 2023 Norah Rios MA null, [place] - [facility] 4 11:52:19 Edema of lower extremity 554450304 Active 2023 Norah Rios MA null, [place] - [facility] 4 11:52:27 Hyperlipide melanie 60922041 Active 2023 Jg Pryor MD Attn: Xiao caballero,[address] [place], [address], [place] - [facility] 4 18:32:11 Chronic rhinitis 42052280 Active 2023 Jg Pryor MD Attn: Xiao caballero,[address] [facility], [place], [address], [place] [facility] 4 18:32:18 Osteoarthri tis 520154689 Active 2023 Jg Pryor MD Attn: Xiao caballero,[address] [facility], [place], [address], [place] [facility] 4 18:33:08 Influenza vaccination declined 218370070 Active 2023 Jg Pryor MD Attn: Xiao caballero,[address] [facility], [place], [address], [place] - [facility] 4 21:56:01 Kidney lesion 5928239370062 0 Active 2024 Norah Rios [place] null, [place] [facility] 5 15:15:07 Overweight in adulthood with body mass index of 25 or more but less than 30 634178421 Active 2024 Norah R[place], [place] [facility] 5 15:15:09 Fatigue 32556591 Active 2024 Norah R[place], [place] - [facility] 5 14:15:16 Problem Notes None recorded. Procedures Surgical History Date Name Laterality Status Provider Name and Address Organization Details Recorded Time 04/20/19 cataract surgery completed ETHEL Reveles [place] - [facility] 07/06/2023 11:21:09 Total hysterectomy completed Cece Meza [place] - [facility] 12/31/2023 13:55:29 Imaging Results None recorded. Procedure Notes None recorded. Medical Equipment None Reported. Allergies Allergen ID Allergen Name Allergen Category Reaction Reaction Severity Criticality Documentation Date Start Date Code Code System Note Provider Name and Address Organization Details Recorded Time 847822 clarithro mycin medicatio n irregular heart rate palpitati ons Not available Not available Not available 07/06/2023 13688 RxNorm ETHEL Reveles, [place] - [facility] 4 11:19:25 Medications Name Sig Start Date Stop Date Status Note LastModified by Organization Details LastModified Time clotrimaz ole 10 mg radha 07/05 completed Not Available Not Available Not Available loperamid e 2 mg capsule active Not Available Not Available Not Available prednison e 20 mg tablet 07/05 completed Not Available Not Available Not Available potassium chloride ER 10 mEq tablet,ex tended release Take 1 tablet every day by oral route as needed, for use with furosem [place]. 11/29 completed Not Available Not Available Not Available metronida zole 500 mg tablet active Not Available Not Available No t Available fexofenad ine 180 mg tablet take 1 tablet by mouth every day 02/08 completed Not Available Not Available Not Available diclofena c sodium 75 mg tablet,de layed release 02/08 completed Not Available Not Available Not Available monteluka st 10 mg tablet TAKE 1 TABLET BY MOUTH DAILY 2024 active Not Available Not Available Not Avai lable furosemid e 20 mg tablet TAKE 1 TABLET BY MOUTH EVERY DAY active Not Available Not Available No t Available ondansetr on 4 mg disintegr ating tablet 09/[address] Pryor told me to end this medicatio n Not Available Not Available Not Available cefdinir 300 mg capsule active Not Available Not Available Not Available amoxicill in 875 mg-potass ium clavulana te 125 mg tablet 09/26 completed Not Available Not Available Not Available rosuvasta tin 10 mg tablet TAKE 1 TABLET BY MOUTH DAILY 2024 active Not Available Not Available Not Avai lable Myrbetriq 50 mg tablet,ex tended release Take 1 tablet every day by oral route. active Not Available Not Available No t Available potassium chloride ER 20 mEq tablet,ex tended release Take 1 tablet every day by oral route. active Not Available Not Available No t Available Caltrate with Vitamin D3 active Not Available Not Available Not Available Probiotic (B. coagulans ) 1 billion cell chewable tablet Take by oral route. active Not Available Not Available No t Available Vitals Date Recorded Body height Body mass index (BMI) Body weight Heart rate Oxygen saturation Oxygen saturation in Arterial blood by Pulse oximetry Systolic And Diastolic Provider Name and Address Organization Details Last Updated DateTime 5 152.4 cm 26.5 kg/m2 46953.1 3 g 90 /min 98 % 98 % 138/72 mm[Hg] Cece Meza MA [facility] 5 14:31:12 Date Recorded Body height Body mass index (BMI) Body weight Heart rate Oxygen saturation Oxygen saturation in Arterial blood by Pulse oximetry Systolic And Diastolic Provider Name and Address Organization Details Last Updated DateTime 5 152.4 cm 27.1 kg/m2 65805.3 4 g 90 /min 100 % 100 % 128/76 mm[Hg] Jocelyn Cary MA [facility] 5 13:56:24 Date Recorded Body height Body mass index (BMI) Body weight Heart rate Oxygen saturation Oxygen saturation in Arterial blood by Pulse oximetry Systolic And Diastolic Provider Name and Address Organization Details Last Updated DateTime 4 152.4 cm 28.9 kg/m2 29244.3 1 g 85 /min 98 % 98 % 120/62 mm[Hg] Cece Meza MA [facility] 4 13:57:37 Date Recorded Body height Body mass index (BMI) Body weight Heart rate Oxygen saturation Oxygen saturation in Arterial blood by Pulse oximetry Systolic And Diastolic Provider Name and Address Organization Details Last Updated DateTime 4 152.4 cm 27.9 kg/m2 03224.7 1 g 78 /min 99 % 99 % 124/64 mm[Hg] Cece Meza MA [facility] 4 10:17:07 Date Recorded Body height Body mass index (BMI) Body weight Heart rate Oxygen saturation Oxygen saturation in Arterial blood by Pulse oximetry Systolic And Diastolic Provider Name and Address Organization Details Last Updated DateTime 4 152.4 cm 28 kg/m2 45019.7 9 g 94 /min 100 % 100 % 130/70 mm[Hg] Jocelyn Cary MA [facility] 4 15:08:01 Social History Question Answer Notes LastModified by Organizat ion Details LastModified Time Tobacco Smoking Status Never Smoker ETHEL Reveles, [facility] 07/06/2023 11:20:39 Do You Have An Advance Directive? No Information not available 11/02/2023 Are You Blind Or Do You Have Difficulty Seeing? No Information not available 11/02/2023 What Is Your Level Of Caffeine Consumption? Occasional Information not available 11/02/2023 In The 14 Days Before Symptom Onset, Have You Had Close Contact With A Laboratory-confir med COVID-19 While That Case Was Ill? No Information not available 11/30/2023 In The 14 Days Before Symptom Onset, Have You Had Close Contact With A Person Who Is Under Investigation For COVID-19 While That Person Was Ill? No Information not available 11/30/2023 Have You Been To An Area Known To Be High Risk For COVID-19? No Information not available 11/30/2023 Are You Deaf Or Do You Have Serious Difficulty Hearing? No Information not available 11/02/2023 What Type Of Diet Are You Following? REGULAR Information not available 11/02/2023 Are There Any Guns Present In Your Home? No Information not available 11/02/2023 How Intense Was Your Typical Exercise? Light (stretching Or Slow Walking) Information not available 02/09/2024 On They Days When You Drank Alcohol, How Often Did You Have 4 Or More Drinks At A Time? Never Information no t available 02/09/2024 What Was The Date Of Your Most Recent Tobacco Screening? 10/31/2024 Non Smoker Information not available 10/31/2024 What Is Your Relationship Status? Information not available 11/02/2023 Do You Use Your Seat Belt Or Car Seat Routinely? Yes Information not available 12/31/2023 Do You Have Smoke And Carbon Monoxide Detectors In Your Home? Yes Information not available 11/02/2023 Do You Use Sunscreen Routinely? No Information not available 11/02/2023 Has Tobacco Cessation Counseling Been Provided? No Information not available 11/02/2023 Sex: Female Functional Status Question Answer Note LastModified by Organizat ion Details LastModified Time Do you use any illicit or recreational drugs? No Information not available 11/02/2023 What is your level of alcohol consumption? None Information not available 11/02/2023 Are you currently employed? No Information not available 12/31/2023 Are you able to care for yourself? Yes Information not available 11/02/2023 What is your exercise level? None Information not available 11/02/2023 Mental Status Question Answer Note LastModified by Organization D etails LastModified Time Do you feel stressed (tense, restless, nervous, or anxious, or unable to sleep at night)? [id number] Information not available 01/25/2024 Family History Relationship Description Onset Age of this Age Resolved Age Notes LastModified by Organization Details LastModified Time Father Heart disease [email or web address] Not available 06/18 11:19:55 Father Diabetes mellitus [email or web address] Not available 06/18 11:20:22 Mother Heart disease [email or web address] Not available 06/18 11:19:55 Mother Malignant tumor of breast [email or web address] Not available 06/18 11:20:05 Mother Diabetes mellitus [email or web address] Not available 06/18 11:20:22 Notes:No new family history, me/rma Medical History Condition Response Coronary Artery Disease N Depression N COPD N Blood Clots N Anxiety Disorder N Acid Reflux (GERD) N Stroke N Skin Problems N Asthma N Liver Disease N Thyroid Problems N GI Problems N Anemia N Heart Attack (DE) N Diabetes N Heart Failure N Other N Atrial Fibrillation N High Blood Pressure Y Muscle, Joint, or Bone Problems Y Cancer N Headaches N Kidney or Bladder Problems N Allergies N Have you had a PSA blood test in the las t year? N Hepatitis N High Cholesterol Y Seizures/Epilepsy N Osteoporosis N Gynecological History Statement/Question Response If Post Menopausal, Age at Menopause Current Control Method Hysterectom y Obstetrics History GPAL:G 1 P 1 0 0 1 Type Value Full Term 1 Living 1 Total 1 Immunizations Vaccine Type Date Status Note Provider Bird springer and Address Organization Details Recorded Time COVID-19 vaccine, vector-nr, rS-Ad26, PF, 0.5 mL 04/22/2021 completed Alli Mohamud [place] null, [place] [facility] 11/30/2023 09:26:16 COVID-19 vaccine, vector-nr, rS-Ad26, PF, 0.5 mL 10/01/2020 completed Alli Mohamud [place], [place] [facility] 11/30/2023 09:26:16 COVID-19, mRNA, LNP-S, PF, 30 mcg/0.3 mL dose, fern-sucrose 11/04/2021 completed Alli Moham[place], [place] [facility] 11/30/2023 09:26:16 COVID-19, mRNA, LNP-S, bivalent, PF, 30 mcg/0.3 mL dose 02/22/2022 completed Alli Mohamud [place] null, [place] [facility] 11/30/2023 09:26:16 Past Encounters Encounter ID Performer Location Encounter Start Date Encounter Closed Date Diagnosis/Indication Diagnosis SNOMED-CT Code Diagnosis ICD10 Code Diagnosis Note [id number] Jg Pryor MD [facility] ([facility]) [address] [place] [address] 07/06/2023 10:35:09 07/06/2023 12:03:19 Dyslipidemia 264709883 E78.5 Essential hypertension 23133213 I10 Osteoarthritis 527477294 M19.90 [id number] Jg Pryor MD [facility] [employer] [address] [place] [address] 11/02/2023 10:39:03 11/02/2023 11:58:56 Overweight 121015403 E66.3 Numbness of hand 4750487 04 R20.0 Edema of l ower extremity 196683191 R60.0 [id number] Jg Pryor MD [facility] [employer] [address] [place] [address] 11/30/2023 10:08:03 11/30/2023 11:29:53 Edema of lower extremity 463005363 R60.0 Hyperlipidemia 76247517 E78.5 Chronic rhinitis 2833976 6 J31.0 Osteoarthritis 406554757 M19.90 [id number] Jg Pryor MD [facility] [employer] [facility] [place] [address] [place] [address] 12/31/2023 13:46:04 12/31/2023 15:00:04 Edema of lower extremity 079295673 R60.0 [id number] Jg Pryor MD [facility] [employer] [facility] [place] [address] [place] [address] 01/25/2024 09:57:17 01/25/2024 11:23:51 Edema of lower extremity 423590526 R60.0 Hyperlipidemia 98933642 E78.5 Chronic rhinitis 9529730 6 J31.0 Osteoarthritis 688407592 M19.90 Influenza vaccination declined 824519304 Z28.21 [id number] Jg Pryor MD [facility] (Adult Med) [address] [place] [address] 02/09/2024 14:48:53 02/09/2024 15:58:03 Body mass index 25-29 - overweight 555884422 Z68.28 Overweight 810697213 E66 .3 Colitis 98971078 K52.9 Kidney lesion 4824616626 9100 N28.9 [id number] Jg Pryor MD [facility] [employer] [address] [place] [address] 09/26/2024 13:52:00 09/26/2024 15:13:15 Overweight in adulthood with body mass index of 25 or more but less than 30 880726844 E66.3 Z68.26 Kidney lesion 3000550875 9100 N28.9 Hyperlipidemia 73482047 E78.5 Chronic rhinitis 9069006 6 J31.0 [id number] Jg Pryor MD [facility] [employer] [address] [place] [address] 10/31/2024 13:32:26 10/31/2024 14:18:07 Overweight in adulthood with body mass index of 25 or more but less than 30 526821392 Z68.27 Overweight 892908379 E66 .3 Hyperlipidemia 89562682 E78.5 Fatigue 50834437 R53.83 Chronic rhinitis 9954289 6 J31.0 Health Concerns Section Related Observation LastModified by Organization Detai ls LastModified Time None Recorded Concern Status LastModified by Organization Details LastModified Time None Recorded Advance Directives Directive N: Payers Insurance Date Sequence Insurance Name Policy Number Policy Ngo Covered Member ID Ngo Member ID Guarantor Name 10/28/2024 2 [place] WHEN MEDICARE OR MEDICARE REPLACEMENT PRIMARY) Sujatha Glez [id number] Sujatha Glez 11/03/2024 1 [facility] (MEDICARE REPLACEMENT/AD VANTAGE - HMO) [id number] Sujatha Glez [id number] Sujatha Glez 09/26/2024 3 [place] Sujatha Glez [id number] Sujatha Glez Notes Date Note Type Note Provider Name and Address Organization Details Recorded Time 12/31/2023 text/html still has some swelling maybe little bit more pronounced echocardiogram not done yet blood work has been pretty much nondiagnostic no PND nor orthopnea no chest pain no shortness a breath Jg Pryor MD Attn: Accounting, [address] [facility], [place], [address], [facility] 12/31/2023 23:25:19 01/25/2024 text/html 1. Edema she has about 8 lb down no PND nor orthopnea echo showed normal LV function. 2. Rhinitis montelukast seems to be helping she is sometimes has to use fexofenadine as well. 3. Dyslipidemia takes her rosuvastatin. Tries to follow a low-fat diet Jg Pryor MD Attn: Accounting, [address] [facility], [place], [address], [facility] 01/25/2024 21:56:21 02/09/2024 text/html hospitalized col itis C diff negative discharged still stomach does not feel that great maybe a little bit of diarrhea kidney lesion was seen as well that needs further workup Jg Pryor MD Attn: Accounting, [address] [facility], [place], [address], [facility] 02/21/2024 11:49:40 09/26/2024 text/html C diff with the nursing care facility finally getting out needs a new she has a Rollator but she says for long periods of time she can not sit on the. And family needs to get her out for long periods of time for shopping etc. for the house. Her bowels are doing better she has no chest pain or shortness of breath no palpitations rhinitis is doing fine Jg Pryor MD Attn: Accounting,[address] [facility], [place], [address], [facility] 10/09/2024 16:12:17 10/31/2024 text/html Edema is maybe a little bit better chronic rhinitis seems to be doing fine she has had some low potassium that has been supplemented and because of her ongoing diarrhea when she had her C diff she is on probiotics and that seems to be settling down still takes rosuvastatin for her dyslipidemia. Interval developments cc developing a little bit of fatigue with nonspecific no chest pain shortness breath palpitations. There has not been any other developments or complaints Jg Pryor MD Attn: Accounting[address] [facility], [place], [address], [facility] 10/31/2024 15:20:37 OBGyn Episode No OBEpisode recorded.
[2024-11-07 09:29] LABS: Estimated Glomerular Filt Rate > 60
== END 2024-11-07 09:05 | disposition home or self-care (01) ==
PROVIDERS: PCP Internal Medicine; Visit Provider Urology
DX: D41.02 Neoplasm of uncertain behavior of left kidney (principal)
CPT/HCPCS: 74170; Q9967